=== PATIENT | male | born 1950 | race Caucasian/White ===

== ENCOUNTER → 2018-06-20 08:38 | Outpatient (CLI) | payer MEDICARE, OTHER, SELFPAY ==
[2018-06-20 09:37] LABS: Cholesterol 192 mg/dL (140-199); HDL Cholesterol 46 mg/dL (40-60); LDL Cholesterol Calculated 133 mg/dL (<100); Triglycerides 67 mg/dL (35-150)
== END ==
PROVIDERS: Family Provider Internal Medicine; PCP Internal Medicine; Visit Provider Internal Medicine
DX: E78.00 Pure hypercholesterolemia, unspecified (principal); E66.9 Obesity, unspecified; Z12.5 Encounter for screening for malignant neoplasm of prostate
CPT/HCPCS: 36415; 80061; G0103

== ENCOUNTER → 2019-04-15 08:11 | Outpatient (CLI) | payer MEDICARE, OTHER, SELFPAY ==
[2019-04-15 09:10] LABS: Cholesterol 200 mg/dL (140-199); HDL Cholesterol 44 mg/dL (40-60); LDL Cholesterol Calculated 140 mg/dL (<100); Triglycerides 81 mg/dL (35-150)
== END ==
PROVIDERS: Family Provider Internal Medicine; PCP Internal Medicine; Visit Provider Internal Medicine
DX: E78.00 Pure hypercholesterolemia, unspecified (principal)
CPT/HCPCS: 36415; 80061

== ENCOUNTER 2019-08-20 08:16 | Day surgery (SDC) | payer MEDICARE, OTHER, SELFPAY ==
[2019-08-20] VITALS (7 sets, daily range): BP systolic 104–127; BP diastolic 74–86; PULSE 58–76; RESP 10–16; TEMP 36.1–36.4; O2SAT 94–98; BMI 30.7
--- NOTE | 2019-08-20 | PATH_ITS ---
[facility] Accession Number: [id number] . 01 Material submitted: . sigmoid colon - SIGMOID COLON POLYP . 01 Diagnosis: Sigmoid Colon, Polyp: Colonic mucosa with focal mucosal hyperplasia. Negative for dysplasia or malignancy. Additional step sections examined. MRV 08/22/2019 1038 Local . 01 Electronically signed: . Praveen Cleaning MD, PhD, Pathologist NPI- [id number] . 01 Gross description: . SIGMOID COLON POLYP: Received in formalin is 1 fragment(s) of soria, soft tissue measuring 0.2 x 0.2 x 0.2 cm submitted entirely in 1 cassette(s) /[facility] [place] 08/20/2019 1904 Local . 01 Pathologist provided ICD-10: K63.5 . 01 CPT . 721127 Performed at: [address] [id number] MD Bob Felix MD Phone: [phone]
[2019-08-20] MEDS: SODIUM CHLORIDE 0.9% 1,000 ML 84 ML IV (09:00)
--- NOTE | 2019-08-20 09:39 | PM.HP.1 ---
History of Present Illness History of Present Illness Chief complaint: [id number] COLONOSCOPY W/POSS BX Patient History Family & Social History Social History: household members spouse Tobacco & Substance use: Smoking Status Never smoker alcohol intake current alcohol intake frequency 0-2 drinks per day Substance Use Type does not use Meds Home Medications and Allergies Home Medications Medication Instructions Recorded Confirmed Type atorvastatin 20 mg PO BEDTIME 08/20/19 08/20/19 History Allergies Allergy/AdvReac Type Severity Reaction Status Date / Time No Known Drug Allergies Allergy Verified 08/20/19 08:42 Review of Systems Review of Systems ROS: Yes All systems reviewed with the patient and are negative except as otherwise documented Exam Vital Signs (past 8 hours): - 08/20/19 08:43 Temperature 97.0 F L Pulse Rate 59 L Respiratory Rate 15 Blood Pressure 127/80 Pulse Oximetry 98 Oxygen Delivery Method Room Air Narrative Exam Narrative: Awake alert and oriented x3, no acute distress, lungs clear, heart regular rate and rhythm, no lower extremity edema Assessment & Plan Assessment & Plan narrative: History of colon polyps, needs colon cancer screening, for colonoscopy today
[2019-08-20] MEDS: fentaNYL 250 MCG/5 ML INJ IV (09:44)
[2019-08-20] MEDS: MIDAZOLAM 5 MG/ML VIAL IV (09:45)
--- NOTE | 2019-08-20 09:58 | PM.OP.ENDO ---
Operative Date/Time/Diagnoses Date of procedure: 08/20/19 Procedure & Clinicians Study performed: Colonoscopy with biopsy Moderate conscious sedation was administered by the endoscopy nurse and supervised by the endoscopist. The following parameters were monitored: Oxygen saturation, heart rate, blood pressure, and response to care. Sedation totals: 5 mg midazolam, 100 mcg fentanyl Indications: Personal history of colon polyps. Unknown date of last colonoscopy. Colon cancer screening Procedure Notes Procedure in detail: Prior to the procedure, history and physical was performed, and patient medications and allergies were reviewed. Preprocedure nursing history and assessment was reviewed. Patient identification and proposed procedure were verified by the physician and nurse in the procedure room. The physical status of the patient was reassessed after the procedure. After informed consent was obtained including risks, benefits, and alternatives, the scope was passed under direct vision. Throughout the procedure, the patient's blood pressure, pulse, and oxygen saturations were monitored continuously. The colonoscope was introduced through the anus and advanced to the cecum as identified by the appendiceal orifice and ileocecal valve. The patient tolerated the procedure well. Bowel prep was deemed adequate to detect polyps greater than 5 mm. Perianal and digital rectal examinations were unremarkable. Retroflexion in the rectum revealed grade 1 internal hemorrhoids Scattered small and medium mouth diverticula were noted in the sigmoid colon. A 2 mm sessile polyp was removed with a Jumbo biopsy forceps from the sigmoid colon and retrieved Impression: Internal hemorrhoids Sigmoid colon diverticulosis 2 mm sigmoid colon polyp removed Sedation minutes: 16 Complications: other (EBL minimal. No complications) Post-procedure Plan for aftercare: Follow-up pathology results Repeat colonoscopy in 5 years for screening purposes Resume home medications High-fiber diet Patient has a contact number available for emergencies. The signs and symptoms of potential delayed complications were discussed with the patient. Return to normal activities tomorrow. Written discharge instructions were provided to the patient. Discharge home with escort
--- NOTE | 2019-08-20 10:19 | SUR.PHASEI ---
Patient awake drinking gingerale without difficulty. Denies any pain or nausea.
== END 2019-08-20 11:04 | disposition home or self-care (01) ==
PROVIDERS: Family Provider Internal Medicine; PCP Internal Medicine; Referring Provider Internal Medicine; Visit Provider Internal Medicine
PROC: 0DJD8ZZ Inspection of Lower Intestinal Tract, Via Natural or Artificial Opening Endoscopic (ICD-10-PCS; CPT 45378; principal; 2019-08-20 09:30)
DX: Z12.11 Encounter for screening for malignant neoplasm of colon (principal); Z86.010 Personal history of colon polyps; K57.30 Diverticulosis of large intestine without perforation or abscess without bleeding; K64.0 First degree hemorrhoids; D12.5 Benign neoplasm of sigmoid colon
CPT/HCPCS: 45380; J2250; J3010

== ENCOUNTER → 2020-08-07 12:14 | Outpatient (CLI) | payer MEDICARE, OTHER, SELFPAY ==
--- NOTE | 2020-08-07 12:17 | DI.MRI.S_ITS ---
PROCEDURE: MR KNEE LT WO CON INDICATIONS: Unspecified internal derangement of left knee TECHNIQUE: Noncontrast sagittal PD fast spin echo and T2 fast spin echo with fat saturation, sagittal 3-D FLASH with fat saturation; coronal T1 spin echo and PD fast spin echo with fat saturation, and axial PD fast spin echo with fat saturation through the knee. COMPARISON: [facility], CR, XR KNEE 4+ VIEWS LEFT, 08/03/2020, 13:20. FINDINGS: Image quality: Excellent. Menisci: Subtle signal abnormality involving posterior horn of medial meniscus is seen extending to superior articulating surface concerning for subtle oblique tear. Signal abnormality involving body/posterior horn of lateral meniscus is also seen extending to inferior articulating surface. The meniscal root ligaments appear intact. Cruciate ligaments: The anterior and posterior cruciate ligaments appear intact. Medial structures: There is low-grade MCL sprain/partial-thickness tear. The posterior oblique ligament, semimembranosus tendon insertions, oblique popliteal ligament, and meniscocapsular junction appear intact. Visualized portions of the pes anserinus tendons appear normal. No abnormal bursal fluid. Lateral structures: The lateral collateral ligament, long and short heads of the biceps femoris tendon appear intact. The popliteus tendon appears normal; the popliteofibular ligament appears intact. The posterosuperior and anteroinferior popliteomeniscal fascicles appear intact. The arcuate and fabellofibular ligaments appear intact, on either side of the lateral inferior geniculate artery. Iliotibial band appears normal. Anterior structures: The quadriceps and patellar tendons appear intact. Patellar alignment is normal. No femoral trochlear dysplasia or ventral trochlear prominence. No edema in the infrapatellar fat pad. Bones and cartilage: Mild tricompartmental osteoarthritis and low-grade chondromalacia is seen more prominent in medial femoral tibial compartment and medial aspect of patella femoral compartment. No fracture or dislocation. No marrow edema. Joint space: There is moderate amount of joint fluid, no gross intra-articular loose body.. No Huston's cyst. Normal appearing synovial plicae are incidentally noted. IMPRESSION: 1. Complex oblique tear involving body/posterior horn of lateral meniscus extending to inferior articulating surface. Subtle oblique tear involving posterior horn of medial meniscus extending to superior articulating surface. 2. Cruciate ligaments are intact. Low-grade MCL sprain/partial-thickness tear. 3. Mild tricompartmental osteoarthritis and chondromalacia more prominent in medial femoral tibial compartment and medial aspect of patellofemoral compartment . No fracture or dislocation. Moderate amount of joint effusion. Dictated by: Arnulfo Cavanaugh M.D. on 08/09/2020 at 8:23 Approved by: Arnulfo Cavanaugh M.D. on 08/09/2020 at 8:35
== END ==
PROVIDERS: Family Provider Internal Medicine; PCP Internal Medicine; Referring Provider Orthopaedic Surgery Adult Reconstructive Orthopaedic Surgery; Visit Provider Orthopaedic Surgery Adult Reconstructive Orthopaedic Surgery
DX: S83.272A Complex tear of lateral meniscus, current injury, left knee, initial encounter (principal); S83.242A Other tear of medial meniscus, current injury, left knee, initial encounter; S83.412A Sprain of medial collateral ligament of left knee, initial encounter; M17.12 Unilateral primary osteoarthritis, left knee; M22.42 Chondromalacia patellae, left knee; M25.462 Effusion, left knee
CPT/HCPCS: 73721

== ENCOUNTER → 2021-07-11 11:36 | Outpatient (CLI) | payer MEDICARE, OTHER, SELFPAY ==
[2021-07-11 13:36] LABS: Add Manual Diff / Slide Review NO; Basophils Absolute Auto 0 /uL (0-100); Basophils Percent Auto 0.6 % (0-2); Eosinophils Absolute Auto 100 /uL (0-450); Eosinophils Percent Auto 1.9 % (2-4); Hematocrit 43.8 % (41-53); Hemoglobin 14.9 g/dL (13.5-17.5); Lymphocytes Absolute Auto 1200 /uL (1100-4500); Lymphocytes Percent Auto 22.9 % (25-40); Mean Corpuscular HGB Conc 34.1 % (30-36); Mean Corpuscular Hemoglobin 31.5 PG (26-34); Mean Corpuscular Volume 92.6 fL (80-100); Monocytes Absolute Auto 600 /uL (0-900); Monocytes Percent Auto 10.6 % (3-14); Neutrophils Absolute Auto 3400 /uL (1500-7000); Platelet Count 194 X10^3/uL (150-400); Red Blood Cell Count 4.73 X10^6/uL (4.5-5.9); Red Cell Distribution Width 13.1 % (11.6-14.8); White Blood Cell Count 5.4 X10^3/uL (4.5-11.0)
[2021-07-11 13:47] LABS: Hemoglobin A1C% w Est Avg Glu 5.5 % (4.0-6.0)
[2021-07-11 14:03] LABS: BUN Creatinine Ratio 19.1 (6-22); Blood Urea Nitrogen 18 mg/dL (9-20); Calcium 9.2 mg/dL (8.4-10.2); Carbon Dioxide 30 mmol/L (22-32); Chloride 106 mmol/L (98-107); Estimated Glomerular Filt Rate > 60.0 mL/min (>60); Glucose 79 mg/dL (80-110); HEMOLYSIS < 15 (0-50); Potassium 4.8 mmol/L (3.4-5.1); Sodium 142 mmol/L (137-145)
== END ==
PROVIDERS: Family Provider Internal Medicine; PCP Internal Medicine; Referring Provider Orthopaedic Surgery; Visit Provider Orthopaedic Surgery
DX: Z01.812 Encounter for preprocedural laboratory examination (principal); Z01.818 Encounter for other preprocedural examination; R73.9 Hyperglycemia, unspecified; M25.562 Pain in left knee
CPT/HCPCS: 36415; 80048; 83036; 85025; 93005; 93010

== ENCOUNTER → 2021-08-31 09:08 | Outpatient (CLI) | payer MEDICARE, OTHER, SELFPAY ==
[2021-08-31 12:39] LABS: COVID19 -Nasal RAPID Negative (Negative)
== END ==
PROVIDERS: Family Provider Internal Medicine; PCP Internal Medicine; Visit Provider Family Medicine Sleep Medicine
DX: Z20.822 Contact with and (suspected) exposure to COVID-19 (principal)
CPT/HCPCS: 87635; C9803

== ENCOUNTER 2021-09-04 11:22 | Observation (INO) | payer MEDICARE, OTHER, SELFPAY ==
[2021-07-25 12:38] VITALS: BMI 31.8
[2021-09-02] VITALS (16 sets, daily range): BP systolic 101–148; BP diastolic 64–83; PULSE 54–81; RESP 10–17; TEMP 35.8–36.8; O2SAT 93–98; BMI 31.8
--- NOTE | 2021-09-02 06:00 | DI.RAD.S_ITS ---
PROCEDURE: XR KNEE LT 1TO2V INDICATIONS: Post op total knee TECHNIQUE: 2 view(s) of the knee acquired. COMPARISON: [facility] BenjaminYves Delgado, CR, XR KNEE 4+ VIEWS LEFT, 05/31/2021, 16:32. FINDINGS: Bones: Patient is status post knee joint arthroplasty. Hardware components are in expected positions. Visualized bony structures are intact. Soft tissues: Overlying postoperative changes are noted. IMPRESSION: Expected immediate postoperative appearance of left TKA. Dictated by: Gregory Jamil [facility] Interpreted: Arnulfo Cavanaugh MD on 09/02/2021 at 12:10 Transcribed by: JERROD on 09/02/2021 at 12:10 Approved by: Arnulfo Cavanaugh M.D. on 09/02/2021 at 17:14
[2021-09-02] MEDS: ACETAMINOPHEN 325 MG TABLET 975 MG PO (06:40)
[2021-09-02] MEDS: PREGABALIN 75 MG CAPSULE PO (06:41)
[2021-09-02] MEDS: CELECOXIB 200 MG CAPSULE PO (06:41)
[2021-09-02] MEDS: LACTATED RINGERS 1,000 ML 42 ML IV ×2 (06:42→09:00)
--- NOTE | 2021-09-02 07:14 | SUR.OPER ---
Supine on padded OR bed. Pillow under head, arms secured on padded armboards <90 degree abduction. Safety belt across torso. Non-operative leg secured with tape over blanket over lower leg. Operative leg secured in [employer]/Nathe positioner. Foam padded brace at thigh of operative leg.
--- NOTE | 2021-09-02 07:29 | P.HP_ITS ---
History of Present Illness History of Present Illness Date Patient Seen: 09/02/21 Time Patient Seen: 07:29 Chief complaint: LT TKA *OPB* Narrative: The patient is a 71-year-old gentleman who has had left knee pain that is not responsive to non operative measures. This is an updated history and physical. There have been no changes to his history from the previously file document from July. Patient History Medical History Dry skin Easy bruisability HLD (hyperlipidemia) Melanoma (2020) Osteoarthritis Sleep apnea Surgical History History of arthroscopy of right shoulder History of vasectomy Hx of colonoscopy (08/20/19) Status post unicompartmental knee replacement, right Family & Social History Social History: household members spouse Prior Living Arrangements House Safety & Behavioral: Feels Safe in Current Yes Environment Been Physically Hurt or No Threatened By a Person Suicidal Ideation Description None Suicide Plan Description No Plan Tobacco & Substance use: Smoking Status Former smoker alcohol intake current alcohol intake frequency 0-2 drinks per day Substance Use Type does not use Meds Home Medications and Allergies Home Medications Medication Instructions Recorded Confirmed Type atorvastatin 20 mg tablet 10 mg PO BEDTIME 08/20/19 09/02/21 History tamsulosin 0.4 mg capsule 0.4 mg PO DAILY 07/25/21 09/02/21 History Allergies Allergy/AdvReac Type Severity Reaction Status Date / Time tree nut Allergy Severe Anaphylaxis Verified 09/02/21 06:30 Review of Systems Review of Systems Narrative: The patient has been in his usual state of health. Exam Vital Signs (past 8 hours): - 09/02/21 06:46 Temperature 97.8 F Pulse Rate 81 Respiratory Rate 16 Blood Pressure 135/81 Pulse Oximetry 96 Oxygen Delivery Method Room Air Narrative Exam Narrative: The patient is resting comfortably in his [facility]. Chest is clear to auscultation. Cardiac exam is regular rate rhythm. Abdomen is soft and nontender. Knee examination is unchanged from that documented in his prior history and physical. Assessment & Plan Assessment & Plan narrative: Left knee osteoarthritis that has failed non operative measures. Plan is for left knee total knee replacement. Risks benefits and alternatives have been discussed with the patient. This is documented in our previous note. There are no substantive updates. COVID-19 COVID-19 status: Negative Result date/Date tested (Pos, Neg/Pending): 08/31/21 Time Spent With Patient Critical Care time: I spent a total of [] minutes of critical care time on this patient's care today; this time is exclusive of procedural time.
[2021-09-02] MEDS: TRANEXAMIC ACID 1,000 MG VIAL 1000 MG INJ ×2 (08:00→09:16)
[2021-09-02] MEDS: CEFAZOLIN 2 GM/20 ML SYRINGE IV (08:00)
[2021-09-02] MEDS: BUPIVACAINE LIPOSOME 266 MG/20 ML VIAL INJ (08:24)
[2021-09-02] MEDS: MORPHINE 4 MG/ML INJ INJ (08:24)
[2021-09-02] MEDS: BUPIVACAINE 0.25% (PF) 60 ML, EPINEPHrine 0.3 MG INJ (08:24)
--- NOTE | 2021-09-02 09:44 | P.OP_ITS ---
Operative Date/Time/Diagnoses Date of procedure: 09/02/21 Time of procedure: 09:44 Pre-op diagnosis: Left knee osteoarthritis Post-op diagnosis: same Procedure & Clinicians Procedure: Left total knee replacement Same procedure as scheduled: Yes Indications: The patient has had progressively worsening left knee pain with radiographic changes consistent with arthritis. Non-operative management has failed and the patient has requested total knee replacement. The risks, benefits and alternatives to surgery were discussed with the patient prior to proceeding. Risks discussed included, but were not limited to, failure to relieve pain, stiffness, infection, nerve damage, deep venous thrombosis, pulmonary embolism, stroke, coma, heart attack, permanent paralysis and , as well as the potential need for eventual revision of the prosthetic. Surgeon: Antwon Jain Manager Automotive: Gracia Johnson Yes if Unassisted: No Anesthesia Type: Spinal, Sedation and Local Operative Notes Findings: Significant tricompartmental osteoarthritis with bone exposed in all 3 compartments. Closure Type: primary Specimen(s): none sent Prosthetic devices, grafts, tissues, transplants, or devices: Implants used in this procedure were manufactured by the [employer] and [employer] and included the BCS II Journey total knee replacement with a size 7 left cobalt chromium femur, size 7 non porous tibial base plate, a 9 mm cross- linked polyethylene tibial insert and a 38 mm oval Alesha II patella. Applied: implant(s) Estimated Blood Loss (mL): 25 Blood products transfused: none Tourniquet time (min): 55 Procedure in detail: The patient was seen in the pre-operative area, where the patient identified the left knee as the operative site and this was marked with my initials. The patient received pre-operative antibiotics, and was taken to the operating room and placed on the operative table in the supine position. After satisfactory ane sthesia, a multimedia services manager out was performed. The left leg was encircled with a tourniquet about the proximal thigh, and the leg was prepared from the toes to the tourniquet with ChloroPrep in the usual fashion and draped through sterile drapes. The leg was elevated and exsanguinated with Eschmark bandage and the tourniquet inflated to 250 mmHg pressure. The knee was approached through an approximately 18 cm incision centered over the patella and carried into the knee through a medial parapatellar arthrotomy. The anterior osteophytes and soft tissues were removed. The rotational landmarks of [place]'s line and the transepicondylar axis were marked on the femur with electrocautery, and intramedullary guide holes for the femur and tibia were created. The distal femoral cut was made in 6 degrees of valgus using the intramedullary guide at the primary cut setting. The proximal tibial cut was then made using the intramedullary guide, taking 9 mm of bone off the less involved side. The extension gap was checked and the rotation of the femoral component confirmed with the gap balancing system. The anterior, posterior and chamfer cuts were then made. The posterior osteophytes and soft tissues were then removed. The posterior capsule was injected with part of a mixture of 60 ml 0.25% Marcaine mixed with 20 ml Exparel and 4 mg of morphine for post-operative pain control. The remainder of this mixture was injected into the capsule and subcutaneous tissues during cement curing. The tibia was prepared with the rotation set by an extra medullary guide. Trial tibial and femoral components were then placed and the intercondylar notch cut through the femoral trial. Range of motion was 0-140 degrees, with good stability throughout the range. The patella was then cut to accommodate the pa tellar prosthetic. There was no need for a lateral release. The trials were then removed, and the femoral hole plugged with a bone plug. The bone was prepared with pulsatile lavage, and dried with a sponge. Cement was applied and the final prosthetics placed. Excess cement was removed during and after cement curing. After confirming there was no extruded cement posteriorly, the final tibial insert was placed. The knee was copiously irrigated and the tourniquet deflated. Hemostasis was obtained. The capsule was closed with interrupted # 2 polyester suture. The subcutaneous layer was closed with 3-0 Vicryl, and the skin with a running 3-0 V-Lock suture and Dermabond. An Aquacel Ag dressing was applied and the patient was taken to recovery having tolerated the procedure well. Complications: none Post-operative Condition: stable Disposition: PACU Plan for aftercare: The patient will be maintained on a standard total knee replacement protocol with weight bearing as tolerated. The patient will receive aspirin and sequential compression devices for DVT prophylaxis. The patient will be discharged home when safe for the home environment.
[2021-09-02] MEDS: OXYCODONE 5 MG/5 ML ORAL SOLUTION PO (11:07)
[2021-09-02] MEDS: OXYCODONE IR 5 MG TABLET PO (11:28)
[2021-09-02] MEDS: HYDROMORPHONE 0.5 MG INJ 0.2 MG IV ×2 (12:35→15:51)
[2021-09-02] MEDS: IBUPROFEN 400 MG TABLET PO ×3 (12:36→20:45)
[2021-09-02] MEDS: LACTATED RINGERS 1,000 ML 100 ML IV ×2 (12:37→20:44)
[2021-09-02] MEDS: ACETAMINOPHEN 325 MG TABLET 650 MG PO ×2 (14:15→20:45)
[2021-09-02] MEDS: OXYCODONE IR 10 MG TABLET PO (14:15)
--- NOTE | 2021-09-02 15:30 | PT.IIE ---
Current Diagnoses Unilateral primary osteoarthritis, left knee (09/02/21) Surgery Performed Operation Date: 09/02/21 07:45 Actual Procedures p Total Knee Arthroplasty(Left) - Antwon Jain MD Medical History (Last Reviewed 09/02/21 @ 07:30 by Antwon Jain MD) Dry skin Easy bruisability HLD (hyperlipidemia) Melanoma (2020) Osteoarthritis Sleep apnea Physical Therapy Inpatient Evaluation/Re-Eval M1 PT/OT-IP Prior Functional Status Start: 09/02/21 17:21 Freq: NEEDED Status: Active Protocol: Document 09/02/21 15:30 AB (Rec: 09/02/21 17:33 AB [email or web address]) Medical Review Prior Functional Status Medical History Reviewed Yes Communication able to make needs known Mobility and Gait pt stated that he is independent with all mobilities and ambulation without AD Social History Household Members spouse Living Arrangements House Number of Floors (Floors) Two Floors Number of Stairs To Enter/Railing? pt will stay on main level of the house no steps to enter Home Environment High Toilet,Walk in Shower, Built-In Shower Seat Home Equipment Hand Held Shower Employment Status Retired M2 PT-IP Current Condition Start: 09/02/21 17:21 Freq: NEEDED Status: Active Protocol: Document 09/02/21 15:30 AB (Rec: 09/02/21 17:33 AB [email or web address]) Physical Therapy Current Condition Current Condition Evaluation Date 09/02/21 Treatment Diagnosis s/p L TKA; difficulty in walking Onset Date 09/02/21 M3 PT-IP Subjective Start: 09/02/21 17:21 Freq: NEEDED Status: Active Protocol: Document 09/02/21 15:30 AB (Rec: 09/02/21 17:33 AB [email or web address]) Subjective Physical Therapy Visit Type Type Initial Evaluation Visit Start Time 15:30 Visit Stop Time 16:30 Total Visit Minutes 60 Number of AIR CONDITIONING SERVICE TECHNICIAN Visits 0 Physical Therapy Visit Comments Patient Comments agreeable to do PT Therapy Pain Assessment Pain When Pain Assessed At Rest Pain Present Pain Present Pain Reported Location Left Knee Intensity 5 Scale Used increases to 8/10 with mobility Pain Management Techniques Apply Cold,Distraction, Elevation,Re-positioning, Timing of Activity with Medications M4 PT-IP Mobility and Gait Start: 09/02/21 17:21 Freq: NEEDED Status: Active Protocol: Document 09/02/21 15:30 AB (Rec: 09/02/21 17:33 AB [id number]) PT-Bed Mobility Assessment Supine to Sit Supine to Sit Standby Assistance Sit to Supine Sit to Supine Standby Assistance PT-Transfer Assessment Sit to and From Stand Sit to and from Stand Moderate Assistance,Maximum Assistance,1 Person Assistance ,Use of Upper Extremities Equipment Transfer Assistive Device Gait Belt,Front Wheeled Walker Orthotic/Prosthetic Devices or Brace: No Comments Mobility Comments BP in supine: 118/78. pt requesting to use the toilet. completed supine to sit SBA. able to sit on EOB SBA. C/O nausea. BP checked: 144/96. nurse informed regarding nausea and given medication. pt completed sit to stand mod to max A and max cues. mod A to maintain static standing balance using FWW. stated that he will not be able to walk due to increase pain and still feel nauseated but wants to use urinal in standing position. nurse in room to assist as needed. instructed pt to side step towards HOB after use of urinal and completed ~ 3 steps using FWW mod to max A and cues. slight L knee buckling requiring assist for steadiness. pt completed sit to supine SBA. positioned pt in bed. call light and table placed within reach. BP chekced: 136/78. ice pack provided. Gait Assessment Comments Gait Comments pt able to take side steps to HOB using FWW mod to max A and max cues for quads activation . PT-Balance Assessment Sitting Balance and Reactions Static Sitting Balance Ability Good Dynamic Sitting Balance Ability Good Standing Balance and Reactions Static Standing Balance Ability Poor Dynamic Standing Balance Ability Poor Device Used FWW M5 PT-IP Objective Assessments Start: 09/02/21 17:21 Freq: NEEDED Status: Active Protocol: Document 09/02/21 15:30 AB (Rec: 09/02/21 17:33 AB [email or web address]) Orientation Orientation/Cognition Level of Alertness Alert Orientation Name,Place,Situation Language Function Ability No Deficits Noted Safety Awareness Decreased Safety Awareness Memory Description No Deficits Noted Gross Range of Motion Lower Extremity ROM Impairments L knee flexion: ~ 70 deg L knee extension: 20 deg less to 0 deg Strength Lower Extremity Strength Assessment Left Impaired Hip 3+/5 Knee 3+/5 Sensation Assessment Sensation Gross Sensation Left LE Impaired Light Touch Impaired Sensation Description Numbness Comments Sensation Comments decrease L foot sensation per pt Muscle Tone Muscle Tone WNL Yes M6 PT-IP Treatment Start: 09/02/21 17:21 Freq: NEEDED Status: Active Protocol: Document 09/02/21 15:30 AB (Rec: 09/02/21 17:33 AB [email or web address]) Physical Therapy Treatment Education Education Provided Precautions,Weight Bearing Status,Post-Op Packet,Safety M7 PT-IP Assessment and Plan Start: 09/02/21 17:21 Freq: NEEDED Status: Active Protocol: Document 09/02/21 15:30 AB (Rec: 09/02/21 17:33 [email or web address]) PT Summary Assessment and Plan Potential Rehabilitation Potential Fair Status of Condition at Evaluation Evolving Summary Impairments Pain,ROM,Strength,Balance, Coordination,Sensation,Tone, Cognition,Bed Mobility, Transfers,Gait,Activity Tolerance Assessment Summary Pt s/p L TKA and just had surgery this morning. pt currently requiring mod to max A with mobility and unable to tolerate much with c/o increase L knee pain and nausea. will continue to assess progress for safe D/C plan. pt plans to go home with spouse to asssit him and when appropriate, will conduct caregiver training. Goals Bed Mobility Goal Independent Transfer Goal Standby Assistance,Front Wheeled Walker Gait Goal Standby Assistance,Front Wheel Walker Gait Distance 150 Days to Meet Goals 5 Frequency of Treatment Frequency Of Treatment Twice a Day Treatment Plan Physical Therapy Treatment Plan Bed Mobility Training,Transfer Training,Gait Training, Therapeutic Exercise,Balance Retraining,Post Op Education, Discharge Planning,Hot or Cold Pack,Neuromuscular Re-ed, Coordination Retraining,Manual Therapy Weight Bearing Status Weight Bearing Status Weight Bear as Tolerated Allowed Weight Bearing Amount (enter % LLE WBAT or #) (%) Recommendations To Nursing Amount of Assist Needed 2 Person Assist Discharge Recommendations PT Discharge Recommendations Home with Assistance, Outpatient PT Transportation Needs at Discharge Private Vehicle
[2021-09-02] MEDS: ONDANSETRON 4 MG ODT PO (16:13)
[2021-09-02] MEDS: HYDROMORPHONE 2 MG TABLET PO ×2 (19:00→21:56)
[2021-09-02] MEDS: ATORVASTATIN 20 MG TABLET 10 MG PO (20:44)
[2021-09-02] MEDS: DOCUSATE 100 MG CAPSULE PO (20:44)
[2021-09-02] MEDS: ASPIRIN EC 81 MG TABLET PO (20:45)
--- NOTE | 2021-09-02 22:09 | PC.NURSE ---
Addendum entered by Genesis Wheatley R.N. 09/02/21 22:39: Patient states he is not able to get any good sleep because he has to keep urinating. Requests IVF be stopped. Intake has been good post-op so IVF stopped. Original Note: Patient is alert and oriented. Breath sounds CTA with RA sat of 94%. HRR but bradycardic with rate in 50's which patient reports is normal for him. Denies nausea. BT hypoactive but states he is passing flatus. Is voiding per urinal and denies dysuria, frequency or urgency. Is able to move himself in bed. Gait not assessed at this time but previous RN reports he needs walker and 2 assists. Aquacel dressing wrapped with demetrice is CDI. Complains of 7/10 left knee pain and was medicated with scheduled Tylenol + Ibuprofen and now with po Dilaudid; is keeping ice pack to knee. Wearing bilateral calf SCD's. Denies any tingling/numbness and is able to do straight leg raises on left. Fall risk score is high and bed alarm is activated.
[2021-09-03] MEDS: IBUPROFEN 400 MG TABLET PO ×6 (01:38→20:29)
[2021-09-03] MEDS: HYDROMORPHONE 2 MG TABLET PO ×4 (01:38→19:44)
[2021-09-03] MEDS: OXYCODONE IR 10 MG TABLET PO (03:18)
[2021-09-03 05:49] LABS: Hematocrit 37.2 % (41-53); Hemoglobin 12.5 g/dL (13.5-17.5)
[2021-09-03 05:58] VITALS: BP 98/52; PULSE 69; RESP 16; TEMP 36.3; O2SAT 96
[2021-09-03] MEDS: hydrOXYzine pamoate 25 MG CAPSULE PO ×4 (08:46→20:29)
[2021-09-03] MEDS: ASPIRIN EC 81 MG TABLET PO ×2 (08:46→20:28)
[2021-09-03] MEDS: ACETAMINOPHEN 325 MG TABLET 650 MG PO (08:47)
[2021-09-03] MEDS: DOCUSATE 100 MG CAPSULE PO ×2 (08:47→20:28)
[2021-09-03] MEDS: TAMSULOSIN 0.4 MG CAPSULE PO (08:47)
[2021-09-03 08:52] VITALS: BP 119/61; PULSE 54; RESP 18; TEMP 36.3; O2SAT 96
[2021-09-03] MEDS: SODIUM CHLORIDE 0.9% FLUSH 10 ML IV ×2 (09:57→20:30)
--- NOTE | 2021-09-03 09:59 | PM.PNPO.1 ---
Subjective Subjective Date Patient Seen: 09/03/21 Time Patient Seen: 09:00 Interval history: Pt sitting up in bed, appears to be comfortable but had significant pain control issues overnight requiring doses of both PO and IV dilaudid on top of ibuprofen, tylenol, and oxycodone. Eating and voiding without difficulty. Evaluated by PT yesterday. Exam Vital Signs (past 8 hours): - 09/03/21 05:58 09/03/21 08:52 Temperature 97.4 F L 97.3 F L Pulse Rate 69 54 L Respiratory Rate 16 18 Blood Pressure 98/52 L 119/61 Pulse Oximetry 96 96 Oxygen Delivery Method Room Air Oxygen Flow Rate 0 Narrative Exam Narrative: 5/5 strength in quadriceps, hamstrings, DF, PF, EHL bilaterally. Sensation to light touch intact throughout BLE. Calves soft, compressible, nontender and without palpable cords or masses. CHARO wrap intact over Aquacel dressing. Const General: cooperative Orientation: alert and oriented x3 Objective Labs Result Diagrams: 09/03/21 05:27 Labs: Laboratory Results - last 24 hr 09/03/21 05:27 Hgb 12.5 L Hct 37.2 L PFSH Medical History (Updated 09/03/21 @ 10:03 by Gracia Butcher PA-C) Dry skin Easy bruisability HLD (hyperlipidemia) Melanoma (2020) Obesity (BMI 30.0-34.9) Osteoarthritis Sleep apnea Surgical History (Updated 09/03/21 @ 10:03 by Gracia Butcher PA-C) History of arthroscopy of right shoulder History of vasectomy Hx of colonoscopy (08/20/19) Status post unicompartmental knee replacement, right Social History household members: spouse Smoking Status: Former smoker alcohol intake: current Assessment & Plan Post-op Assessment and plan (1) Status post total knee replacement, left: Assessment and Plan narrative: Continue PT Will increase frequency of Vistaril and dosage of Tylenol (2) Acute blood loss as cause of postoperative anemia: Assessment and Plan narrative: Asymptomatic, no intervention needed at this time. Postoperative Procedures: Procedures Operation Date: 09/02/21 07:45 Actual Procedure Side Surgeon p Total Knee Arthroplasty Left Antwon Jain MD Postoperative day: 1 Postoperative status narrative: Recovery as expected. Postoperative plan narrative: Discharge when pain controlled when pain controlled without dilaudid. Quality VTE Deep Vein Thrombosis/Pulmonary Embolism Present on Admission: No
--- NOTE | 2021-09-03 10:05 | PM.DS.1 ---
History of Present Illness History of Present Illness Date Patient Seen: 09/04/21 Time Patient Seen: 08:35 Chief complaint: LT TKA *OPB* Narrative: Operative Date/Time/Diagnoses Date of procedure: 09/02/21 Time of procedure: 09:44 Pre-op diagnosis: Left knee osteoarthritis Post-op diagnosis: same Procedure & Clinicians Procedure: Left total knee replacement Same procedure as scheduled: Yes Indications: The patient has had progressively worsening left knee pain with radiographic changes consistent with arthritis. Non-operative management has failed and the patient has requested total knee replacement. The risks, benefits and alternatives to surgery were discussed with the patient prior to proceeding. Risks discussed included, but were not limited to, failure to relieve pain, stiffness, infection, nerve damage, deep venous thrombosis, pulmonary embolism, stroke, coma, heart attack, permanent paralysis and , as well as the potential need for eventual revision of the prosthetic. Surgeon: Antwon Jain Electromechanical Assembler: Gracia Butcher Click Yes if Unassisted: No Anesthesia Type: Spinal, Sedation and Local Operative Notes Findings: Significant tricompartmental osteoarthritis with bone exposed in all 3 compartments. Closure Type: primary Specimen(s): none sent Prosthetic devices, grafts, tissues, transplants, or devices: Implants used in this procedure were manufactured by the [employer] and included the BCS II Journey total knee replacement with a size 7 left cobalt chromium femur, size 7 non porous tibial base plate, a 9 mm cross-linked polyethylene tibial insert and a 38 mm oval Alesha II patella. Applied: implant(s) Estimated Blood Loss (mL): 25 Blood products transfused: none Tourniquet time (min): 55 Discharge Providers Provider Date of admission: 09/02/2021 Discharge Date: 09/04/21 Primary care physician: Hector Aguirre MD Consults: 09/02/21 11:22 Consult to Discharge Planning Routine Comment: Consult to Physical Therapy Evaluate & Treat Comment: Physician Instructions: postop TKA protocol Consult to Respiratory Therapy Evaluate & Treat Comment: Physician Instructions: Evaluate and treat Discharge provider: Gracia Butcher PA-C Summary Hospital Course Discharge Diagnosis: s/p L TKA Hospital Course: Mr Ugalde's hospital course was remarkable for difficulty with pain control. On POD# 2, his pain was well-controlled with oxycodone, vistaril, Tylenol, ibuprofen, and minimal amounts of hydromorphone. He was evaluated by PT and felt to be safe for discharge. He was eating and voiding without difficulty and wanted to go home. Exam Vital Signs (past 8 hours): - 09/03/21 05:58 09/03/21 08:52 Temperature 97.4 F L 97.3 F L Pulse Rate 69 54 L Respiratory Rate 16 18 Blood Pressure 98/52 L 119/61 Pulse Oximetry 96 96 Oxygen Delivery Method Room Air Oxygen Flow Rate 0 Narrative Exam Narrative: 5/5 strength in quadriceps, hamstrings, DF, PF, and EHL bilaterally. Sensation to light touch intact throughout BLE. Calves soft, compressible, and nontender and without palpable cords or masses. Const General: cooperative and comfortable Orientation: alert, awake and oriented x3 Objective Labs Result Diagrams: 09/03/21 05:27 Labs: Laboratory Results - last 24 hr 09/03/21 05:27 Hgb 12.5 L Hct 37.2 L PFSH Medical History (Updated 09/03/21 @ 10:03 by Gracia Butcher PA-C) Dry skin Easy bruisability HLD (hyperlipidemia) Melanoma (2020) Obesity (BMI 30.0-34.9) Osteoarthritis Sleep apnea Surgical History (Updated 09/03/21 @ 10:03 by Gracia Butcher PA-C) History of arthroscopy of right shoulder History of vasectomy Hx of colonoscopy (08/20/19) Status post unicompartmental knee replacement, right Social History household members: spouse Smoking Status: Former smoker alcohol intake: current Discharge Assessment & Plan Assessment and Plan Assessment: POD#2 s/p left total knee arthroplasty. Plan of Treatment: Discharge home. Multimodal pain management. ASA 81 mg BID for VTE prophylaxis. Outpt PT. Discharge Plan Discharge Plan Patient Disposition: Home Discharge orders & Medications Discharge Orders: Discharge (Order); Ordered 09/04/21 Ordered By: Gracia Butcher Prescriptions: New oxycodone 5 mg Tablet 5 mg PO Q4-6H PRN (Reason: pain, severe) Qty: 60 0RF hydromorphone 2 mg Tablet 2 mg PO Q6H PRN (Reason: Pain, Severe (7-10)) Qty: 10 0RF aspirin 81 mg Tablet,Delayed Release (Dr/Ec) 81 mg PO BID Qty: 90 0RF ibuprofen 400 mg Tablet 400 mg PO Q4HR Qty: 180 1RF docusate sodium 100 mg Capsule 100 mg PO BID PRN (Reason: constipation) Qty: 60 2RF acetaminophen 325 mg Tablet 975 mg PO TID Qty: 180 2RF hydroxyzine pamoate 25 mg Capsule 25 mg PO Q4HR PRN (Reason: muscle spasm) Qty: 180 1RF Continued atorvastatin 20 mg Tablet 10 mg PO BEDTIME 0RF tamsulosin 0.4 mg Capsule 0.4 mg PO DAILY 0RF Follow up/Referrals: Hector Aguirre MD [Primary Care Provider] - Antwon Jain MD [Physician] - As previously scheduled (Follow up with Gracia Butcher PA-C on 09/13/2021 @ 9:30 at [facility] office in [place].) Diet/Activity/Treatments Diet: Diet as Tolerated Activity: WBAT LLE. Walk frequently! Cold/Heat Therapy: Ice to knee as needed for pain. Skin/Wound/Dressing Care Report to your healthcare provider any signs of infection, such as:: chills, fever, night sweats, increased pain, unusual drainage and unusual redness Dressing: May remove CHARO wrap and shower. Leave Aquacel dressing in place until follow up with Dr Jain. No bathing or otherwise soaking incision. Call office if dressing becomes saturated inside. Visit Report/Discharge Packet Instructions: DI for Knee Replacement Stand Alone Forms: Surgery Discharge Discharge Data Primary Care Provider: Hector Aguirre V Attending Provider: Antwon Jain Quality VTE Deep Vein Thrombosis/Pulmonary Embolism Present on Admission: No
[2021-09-03] MEDS: OXYCODONE IR 5 MG TABLET PO ×2 (10:07→18:22)
--- NOTE | 2021-09-03 10:37 | PT.IPTN ---
Current Diagnoses Acute posthemorrhagic anemia (09/02/21) Unilateral primary osteoarthritis, left knee (09/02/21) Presence of left artificial knee joint (09/02/21) Surgery Performed Operation Date: 09/02/21 07:45 Actual Procedures p Total Knee Arthroplasty(Left) - Antwon Jain MD Physical Therapy Treatment Note M2 PT-IP Current Condition Start: 09/02/21 17:21 Freq: NEEDED Status: Active Protocol: Document 09/02/21 15:30 AB (Rec: 09/02/21 17:33 AB [id number]) Physical Therapy Current Condition Current Condition Evaluation Date 09/02/21 Treatment Diagnosis s/p L TKA; difficulty in walking Onset Date 09/02/21 M3 PT-IP Subjective Start: 09/02/21 17:21 Freq: NEEDED Status: Active Protocol: Document 09/03/21 10:19 KS (Rec: 09/03/21 12:46 KS [id number]) Subjective Physical Therapy Visit Type Type Treatment Note Visit Start Time 10:19 Visit Stop Time 10:37 Total Visit Minutes 18 Notes Spouse present Number of ACTIMIZE ARCHITECT Visits 1 Physical Therapy Visit Comments Patient Comments agreeable to do PT Therapy Pain Assessment Pain When Pain Assessed At Rest Pain Present Pain Present Pain Reported Location Left Knee Intensity 3 Scale Used increases to 8/10 with mobility Pain Behaviors Calling Out,Facial Grimacing, Guarding,Restlessness,Wincing Pain Management Techniques Apply Cold,Distraction, Elevation,Re-positioning, Timing of Activity with Medications M4 PT-IP Mobility and Gait Start: 09/02/21 17:21 Freq: NEEDED Status: Active Protocol: Document 09/03/21 10:19 KS (Rec: 09/03/21 12:46 KS [id number]) PT-Bed Mobility Assessment Supine to Sit Supine to Sit Standby Assistance Sit to Supine Sit to Supine Moderate Assistance Scooting Scooting to Edge of Bed Standby Assistance PT-Transfer Assessment Sit to and From Stand Sit to and from Stand Minimal Assistance,1 Person Assistance,Use of Upper Extremities Equipment Transfer Assistive Device Gait Belt,Front Wheeled Walker Orthotic/Prosthetic Devices or Brace: No Transfers Transfer Destination Bed Transfer Technique pt ambulated w/ FWW Transfer Ability Level of Assist Minimal Assistance,1 Person Assistance,Use of Upper Extremities Comments Mobility Comments Pt in bed upon arrival w/ spouse in room. Performed 1x10 ankle pumps and 1x5 heel slides and SLR prior to mobilizing. SBA for sup<>sit and scooting EOB. Min A and cues for sequencing and hand placement for sit<>stand w/ FWW. Pt then performed 10 sec weight shifting followed by [address] and then ambulated ~40 ft around room w/ FWW CGA. Pt c/o increased pain to 8/10 w/ mobility. Pt Mod A for sit<> sup for LE assistance back into bed. Pt refused further exercises due to pain and left in bed w/ all needs in reach. Gait Assessment Gait Gait Assistance Required: Contact Guard Assist,1 Person Assist Distance (Feet) 40 Assistive Devices Assistive Device Gait Belt,Front Wheeled Walker Orthotic/Prosthetic Devices or Brace: No Gait Deviations General Gait Pattern Antalgic,Decreased Stride Length,Decreased Feet Clearance,Flexed Trunk,Step-to Gait Factors Limiting Gait Function Factors Limiting Gait Function Decreased Activity Tolerance, Decreased Strength,Pain Comments Gait Comments Pt increased ambulation distance to 40 ft w/ FWW CGA but c/o increased pain to 8/10 . PT-Balance Assessment Sitting Balance and Reactions Static Sitting Balance Ability Good Dynamic Sitting Balance Ability Good Standing Balance and Reactions Static Standing Balance Ability Fair Dynamic Standing Balance Ability Fair Device Used FWW M5 PT-IP Objective Assessments Start: 09/02/21 17:21 Freq: NEEDED Status: Active Protocol: Document 09/02/21 15:30 AB (Rec: 09/02/21 17:33 AB [id number]) Orientation Orientation/Cognition Level of Alertness Alert Orientation Name,Place,Situation Language Function Ability No Deficits Noted Safety Awareness Decreased Safety Awareness Memory Description No Deficits Noted Gross Range of Motion Lower Extremity ROM Impairments L knee flexion: ~ 70 deg L knee extension: 20 deg less to 0 deg Strength Lower Extremity Strength Assessment Left Impaired Hip 3+/5 Knee 3+/5 Sensation Assessment Sensation Gross Sensation Left LE Impaired Light Touch Impaired Sensation Description Numbness Comments Sensation Comments decrease L foot sensation per pt Muscle Tone Muscle Tone WNL Yes M6 PT-IP Treatment Start: 09/02/21 17:21 Freq: NEEDED Status: Active Protocol: Document 09/03/21 10:19 KS (Rec: 09/03/21 12:46 KS [id number]) Physical Therapy Treatment Exercises Exercises Ankle Pumps,Gluteal Sets,Quad Sets,Heel Slides,Straight Leg Raises Education Education Provided Precautions,Weight Bearing Status,Post-Op Packet,Safety Other Treatments Other Treatment Performed Initiated caregiver training - demonstrated how to guard pt when ambulating. M7 PT-IP Assessment and Plan Start: 09/02/21 17:21 Freq: NEEDED Status: Active Protocol: Document 09/03/21 10:19 KS (Rec: 09/03/21 12:46 KS [id number]) PT Summary Assessment and Plan Potential Rehabilitation Potential Fair Status of Condition at Evaluation Evolving Summary Impairments Pain,ROM,Strength,Balance, Coordination,Sensation,Tone, Cognition,Bed Mobility, Transfers,Gait,Activity Tolerance Assessment Summary Pt showed improvement w/ activity tolerance but continues to be limited by high reported pain. SBA for sup<>Sit able to elevate leg out of bed but required Mod A when sit<>sup for LLE assistance due to pain. Ambulated ~40 ft w/ FWW step to pattern and heavy weight bearing through BUE. Will need to complete caregiver training and increase ambulation distance prior to d /c if going home. Goals Bed Mobility Goal Independent Transfer Goal Standby Assistance,Front Wheeled Walker Gait Goal Standby Assistance,Front Wheel Walker Gait Distance 150 Days to Meet Goals 5 Frequency of Treatment Frequency Of Treatment Twice a Day Treatment Plan Physical Therapy Treatment Plan Bed Mobility Training,Transfer Training,Gait Training, Therapeutic Exercise,Balance Retraining,Post Op Education, Discharge Planning,Hot or Cold Pack,Neuromuscular Re-ed, Coordination Retraining,Manual Therapy Weight Bearing Status Weight Bearing Status Weight Bear as Tolerated Allowed Weight Bearing Amount (enter % LLE WBAT or #) (%) Recommendations To Nursing Amount of Assist Needed 1 Person Assist Discharge Recommendations PT Discharge Recommendations Home with Assistance, Outpatient PT Transportation Needs at Discharge Private Vehicle
[2021-09-03] MEDS: HYDROMORPHONE 0.5 MG INJ 0.2 MG IV (10:49)
[2021-09-03] MEDS: polyethylene glycoL 3350 17 GM POWD.PACK PO (10:49)
[2021-09-03 13:29] VITALS: BP 99/67; PULSE 56; RESP 16; TEMP 36.3; O2SAT 96
--- NOTE | 2021-09-03 13:46 | CM.DANOTE ---
DCP Assessment: patient is a 71 yr old male who was admitted for Left Total Knee replacement preformed by Dr. Jain. CM met with the patient and his and explained role. Patient was A&O x4 during visit. Patient states his pain is 4/10 but it is manageable. Patient currently lives in a 2 story home with his Alis but does not need to go to the second floor. Patient is Independent at his baseline with all ADLS and drives. Patient already has OP PT set up with [facility] to start next week and a follow up for 5 days post op. Patient has FWW, cane and an elevated toilet seat at home and doesnt feel he will need anything from CM. I: Medicare and [employer] Dim[employer] Plan: DC Home with who will provide transport home when medically stable. no identified DC planning needs at this time. Anali Gan RNlinen controller Discharge Planning/Care Management Advanced directive, confirm from FAMILY Start: 09/02/21 13:04 Freq: Q24H Status: Active Protocol: Document 09/02/21 13:00 BT (Rec: 09/02/21 13:06 BT [id number]) Advance Directive, confirm on record Time 13:05 Person contacted Dakotah Ugalde Copy received No Copy received No Advanced directive available on record No Document 09/02/21 13:04 BT (Rec: 09/02/21 13:49 BT [id number]) Advance Directive, confirm on record Time 13:05 Person contacted Dakotah Ugalde Copy received No Copy received No Advanced directive available on record No Document 09/03/21 13:04 BT (Rec: 09/03/21 13:19 BT [id number]) Advance Directive, confirm on record Time 13:05 Person contacted Dakotah Ugalde Copy received No Copy received No Advanced directive available on record No CM Discharge Assessment Start: 09/03/21 13:36 Freq: Status: Active Protocol: Document 09/03/21 13:36 HS (Rec: 09/03/21 13:46 HS [id number]) Discharge Planning Assessment Assigned Windlasser Anali Gan RNlinen controller DPOA/Assigned Designee Name Alis Ugalde Advance Directives? Yes Advance Directives on File No History Provided By Patient Has Patient been admitted in last 30 No days? Prior Living Arrangements House Household Members spouse Type of transporation used prior to Drives own vehicle admit Independent with ADL's Yes Is patient alert and oriented? Yes Caregiver for Another No DME Already Rented / Owned FWW / Walker,Cane Patient/Family Preference OP PT Therapy Comment OP PT already set up at [facility] here in [place] Barriers to Discharge No Discharge Plan Home Referrals Initiated None needed Whiteboard Updated in Patient Room with Yes name and ext. # of Windlasser Review Status In Process Next Review Type Continued Stay Review Pre-Anesthesia Assessment Start: 07/25/21 12:38 Freq: Status: Complete Protocol: Document 07/25/21 12:38 CAB (Rec: 07/25/21 13:21 CAB [id number]) Pre-Anesthesia Assessment Preferred Name [facility] Patient Information Reviewed Via Phone Assessment Assessment Completed With Patient Diagnostic Results BMP/CMP,CBC,EKG Comment Labs/ECG @ [facility] 07/11/21, COVID screen @ 08/01/21 Primary Care Provider Hector Aguirre Seen Specialist in Last 12 Months Yes Specialist Seen Orthopedist Primary Language Nigerien Preferred Language Nigerien Carding Doubler Required No Height 182.88 cm Weight 106.594 kg Body Mass Index (BMI) 31.8 Hearing Ability Normal Visual Impairment No Limitations Visual Assist None Dentition Type Teeth, Natural Present Barriers to Learning None Hx Anesthesia Reactions No Hx Family Anesthesia Reaction No Hx Malignant Hyperthermia No Hx Blood Transfusions No Anesthesia Review Requested No alcohol intake current alcohol intake frequency 0-2 drinks per day Smoking Status Former smoker how long ago did patient quit smoking Quit age 20 Substance Use Type does not use Pain Present Pain Reported Musculoskeletal Symptoms Abnormal Gait,Difficulty Walking,Joint Pain History of Falling (Recent or History of No ) Patient is completely paralyzed or No completely immobile Mental Status Oriented to own ability Is patient on oxygen? No Does patient have LEYVA/SOB No Hx Sleep Apnea Yes: Mild per pt, did not toleratte CPAP CPAP/BIPAP use not prescribed Currently Taking a Beta Safia No Can You Climb a Flight of Stairs Without Yes SOB Hx Chest Pain No Hx SOB No Hx Syncope or Dizziness No Anti-Coagulant Therapy No Has a Nitric Acid Plant Operator No Cardiac Testing No Hx Pacemaker/ICD No Pacemaker Rep Required? No Cardiac Clearance Received Not Applicable Diet Type At Home Regular dysphagia No Bladder Pattern Incontinent,Retention Urinary Catheter Present No Hx Urinary Self Catheterization No Diabetes No HgbA1C 5.5 Date 07/11/21 Hx Drug Resistant Organism No Presence of External or Internal Medical Yes: right partial knee Devices Have you had any close contact with No someone diagnosed with COVID-19? Received a COVID vaccine? Yes: + Booster Received all doses? Yes Marital Status Lives With spouse Prior Living Arrangements House Number of Floors (Floors) Two Floors Support System Spouse Does the Patient Have Assistance After Yes Surgery Patient Discharge Plan Description Home Health Comment Pt advised overnight length of stay per surgeon Feels Safe in Current Environment Yes Been Physically Hurt or Threatened By a No Person in Current Environment Do you have thoughts of harming yourself None or others? Are you currently considering suicide? No Do you have a plan to hurt yourself or No Plan others? Do You Have Any Spiritual Beliefs That No May Affect Your HC Choices? Do You Have Any Cultural Practices That No May Affect Your HC Choices? Comment Taoist Who Can We Speak to About Patient's Care Family, friends Identifying Code for Release of Patient Declines to issue Information Health Care Proxy/Next of Kin Alis () Health Care Proxy Emergency Contact Name Alis () Emergency Contact Advance Directives? No Power of Broadcast News Producer No PAC Instructions Durable medical equipment, Medications to take/avoid, Nasal antibiotic,No ETOH/ petroleum product on skin DOS, NPO,Post-op transportation,Pre -surgical wash,Sturdy shoes/ comfortable clothes,Do not bring valuables and remove jewelry
--- NOTE | 2021-09-03 14:00 | PT.IPTN ---
Current Diagnoses Acute posthemorrhagic anemia (09/02/21) Unilateral primary osteoarthritis, left knee (09/02/21) Presence of left artificial knee joint (09/02/21) Surgery Performed Operation Date: 09/02/21 07:45 Actual Procedures p Total Knee Arthroplasty(Left) - Antwon Jain MD Physical Therapy Treatment Note M2 PT-IP Current Condition Start: 09/02/21 17:21 Freq: NEEDED Status: Active Protocol: Document 09/02/21 15:30 AB (Rec: 09/02/21 17:33 AB [id number]) Physical Therapy Current Condition Current Condition Evaluation Date 09/02/21 Treatment Diagnosis s/p L TKA; difficulty in walking Onset Date 09/02/21 M3 PT-IP Subjective Start: 09/02/21 17:21 Freq: NEEDED Status: Active Protocol: Document 09/03/21 16:35 KS (Rec: 09/03/21 16:46 KS [id number]) Subjective Physical Therapy Visit Type Type Treatment Note Visit Start Time 13:44 Visit Stop Time 14:00 Total Visit Minutes 16 Notes Spouse present. Pt seemingly impatient and impulsive, needing cues to not youngblood and wait for direction. Rushing spouse during caregiver training, maybe due to increased pain. Number of JEWELRY INSPECTOR Visits 2 Physical Therapy Visit Comments Patient Comments agreeable to do PT Therapy Pain Assessment Pain When Pain Assessed At Rest Pain Present Pain Present Pain Reported M4 PT-IP Mobility and Gait Start: 09/02/21 17:21 Freq: NEEDED Status: Active Protocol: Document 09/03/21 16:35 KS (Rec: 09/03/21 16:46 KS [id number]) PT-Bed Mobility Assessment Supine to Sit Supine to Sit Standby Assistance Sit to Supine Sit to Supine Moderate Assistance Scooting Scooting to Edge of Bed Standby Assistance PT-Transfer Assessment Sit to and From Stand Sit to and from Stand Contact Guard Assistance,1 Person Assistance,Use of Upper Extremities Equipment Transfer Assistive Device Gait Belt,Front Wheeled Walker Orthotic/Prosthetic Devices or Brace: No Transfers Transfer Destination Bed Transfer Technique pt ambulated w/ FWW Transfer Ability Level of Assist Minimal Assistance,1 Person Assistance,Use of Upper Extremities Comments Mobility Comments Pt in bed upon arrival and spouse in room. Pt sup<>sit SBA and pts applied gaitbelt w/ cues. Pt sit<> stand w/ FWW CGA and cues to p /u from bed, pts spouse able to provide correct assist w/ sit<>Stand and securing of FWW . Pt then only able to ambulate ~20 ft around room w/ FWW and providing CGA and he requested to get back in bed. Pts provided Mod A for sit<>sup and pt left in bed w/ alarm on and all needs in reach. Gait Assessment Gait Gait Assistance Required: Contact Guard Assist,1 Person Assist Distance (Feet) 20 Assistive Devices Assistive Device Gait Belt,Front Wheeled Walker Orthotic/Prosthetic Devices or Brace: No Gait Deviations General Gait Pattern Antalgic,Decreased Stride Length,Decreased Feet Clearance,Flexed Trunk,Step-to Gait Factors Limiting Gait Function Factors Limiting Gait Function Decreased Activity Tolerance, Decreased Strength,Pain Comments Gait Comments Pt limited in ambulation by pain. Stair Climbing Assessment Comments Stair Climbing Comments Not assessed. Pt can enter 2nd floor w/o steps but eventually must descend from second floor. PT-Balance Assessment Sitting Balance and Reactions Static Sitting Balance Ability Good Dynamic Sitting Balance Ability Good Standing Balance and Reactions Static Standing Balance Ability Fair Dynamic Standing Balance Ability Fair Device Used FWW M5 PT-IP Objective Assessments Start: 09/02/21 17:21 Freq: NEEDED Status: Active Protocol: Document 09/02/21 15:30 AB (Rec: 09/02/21 17:33 AB [id number]) Orientation Orientation/Cognition Level of Alertness Alert Orientation Name,Place,Situation Language Function Ability No Deficits Noted Safety Awareness Decreased Safety Awareness Memory Description No Deficits Noted Gross Range of Motion Lower Extremity ROM Impairments L knee flexion: ~ 70 deg L knee extension: 20 deg less to 0 deg Strength Lower Extremity Strength Assessment Left Impaired Hip 3+/5 Knee 3+/5 Sensation Assessment Sensation Gross Sensation Left LE Impaired Light Touch Impaired Sensation Description Numbness Comments Sensation Comments decrease L foot sensation per pt Muscle Tone Muscle Tone WNL Yes M6 PT-IP Treatment Start: 09/02/21 17:21 Freq: NEEDED Status: Active Protocol: Document 09/03/21 16:35 KS (Rec: 09/03/21 16:46 KS [id number]) Physical Therapy Treatment Education Education Provided Precautions,Weight Bearing Status,Post-Op Packet,Safety Other Treatments Other Treatment Performed Continued caregiver training w / pts who was able to apply gait belt, assist w/ sit <>stand and secure FWW, ambulation, and sit<>sup LE elevation. Would benefit from carryover assessment. M7 PT-IP Assessment and Plan Start: 09/02/21 17:21 Freq: NEEDED Status: Active Protocol: Document 09/03/21 16:35 KS (Rec: 09/03/21 16:46 KS [id number]) PT Summary Assessment and Plan Potential Rehabilitation Potential Fair Status of Condition at Evaluation Evolving Summary Impairments Pain,ROM,Strength,Balance, Coordination,Sensation,Tone, Cognition,Bed Mobility, Transfers,Gait,Activity Tolerance Assessment Summary Pt continues to be limited by high reported pain. Continued caregiver training w/ pts today who was able to apply gait belt and provide appropriate assist and cues but would benefit from carryover assessment if able. Pt only able to tolerate ~20 ft ambulation and calls out in pain during stand<>sit due to poor eccentric control and impulsivity needing reminders to reach for mattress. Should increase ambulation distance prior to d/c. Goals Bed Mobility Goal Independent Transfer Goal Standby Assistance,Front Wheeled Walker Gait Goal Standby Assistance,Front Wheel Walker Gait Distance 150 Days to Meet Goals 5 Frequency of Treatment Frequency Of Treatment Twice a Day Treatment Plan Physical Therapy Treatment Plan Bed Mobility Training,Transfer Training,Gait Training, Therapeutic Exercise,Balance Retraining,Post Op Education, Discharge Planning,Hot or Cold Pack,Neuromuscular Re-ed, Coordination Retraining,Manual Therapy Weight Bearing Status Weight Bearing Status Weight Bear as Tolerated Allowed Weight Bearing Amount (enter % LLE WBAT or #) (%) Recommendations To Nursing Amount of Assist Needed 1 Person Assist Discharge Recommendations PT Discharge Recommendations Home with Assistance, Outpatient PT Transportation Needs at Discharge Private Vehicle
[2021-09-03] MEDS: ACETAMINOPHEN 325 MG TABLET 975 MG PO ×2 (14:42→20:29)
[2021-09-03 19:58] VITALS: BP 97/59; PULSE 54; RESP 16; TEMP 37.2; O2SAT 93
[2021-09-03] MEDS: ATORVASTATIN 20 MG TABLET 10 MG PO (20:28)
[2021-09-03 23:12] VITALS: BP 103/63; PULSE 76; RESP 16; TEMP 36.5; O2SAT 97
--- NOTE | 2021-09-03 23:26 | PC.NURSE ---
Patient is alert and oriented. Breath sounds CTA with RA sat of 93%. HRR but bradycardic in 50's which is his normal. BP low at 97/59 but is asymptomatic. Denies nausea. BT present and is passing flatus. Voiding per urinal; denies dysuria. Is able to move himself in bed. Gait not assessed at this time but reportedly is now getting out of bed with walker and 1 assist. Aquacel dressing covered with demetrice wrap is CDI. At shift change pain reported as well managed at 07/11 but at 1944 complained that pain had intensified and was throbbing and rated severity as 7/10 so was medicated with po Dilaudid (too early for additional oxycodone) and ice applied. Pain went down to 4/10 at time scheduled Tylenol, Vistaril and Ibuprofen was administered and is currently asleep. Denies tingling/numbness but is unable to lift leg off bed at time of assessment. Refused bilateral calf SCD's but verbalized/demonstrated understanding of ankle waving. Fall risk score is high and bed alarm is activated.
[2021-09-04] MEDS: IBUPROFEN 400 MG TABLET PO ×6 (00:21→21:35)
[2021-09-04] MEDS: OXYCODONE IR 5 MG TABLET PO ×3 (00:21→08:15)
[2021-09-04] MEDS: hydrOXYzine pamoate 25 MG CAPSULE PO ×6 (00:21→21:35)
[2021-09-04 04:37] VITALS: BP 102/58; PULSE 51; RESP 95; TEMP 36.8; O2SAT 95
[2021-09-04 08:00] VITALS: BP 136/79; PULSE 62; RESP 17; TEMP 36.4; O2SAT 96
[2021-09-04] MEDS: ACETAMINOPHEN 325 MG TABLET 975 MG PO ×3 (08:14→21:35)
[2021-09-04] MEDS: DOCUSATE 100 MG CAPSULE PO ×2 (08:15→21:35)
[2021-09-04] MEDS: ASPIRIN EC 81 MG TABLET PO ×2 (08:15→21:36)
[2021-09-04] MEDS: TAMSULOSIN 0.4 MG CAPSULE PO (08:15)
[2021-09-04] MEDS: HYDROMORPHONE 2 MG TABLET PO ×5 (09:11→21:36)
--- NOTE | 2021-09-04 09:46 | PT.IPTN ---
Current Diagnoses Acute posthemorrhagic anemia (09/02/21) Unilateral primary osteoarthritis, left knee (09/02/21) Presence of left artificial knee joint (09/02/21) Surgery Performed Operation Date: 09/02/21 07:45 Actual Procedures p Total Knee Arthroplasty(Left) - Antwon Jain MD Physical Therapy Treatment Note M2 PT-IP Current Condition Start: 09/02/21 17:21 Freq: NEEDED Status: Active Protocol: Document 09/02/21 15:30 AB (Rec: 09/02/21 17:33 AB [email or web address]) Physical Therapy Current Condition Current Condition Evaluation Date 09/02/21 Treatment Diagnosis s/p L TKA; difficulty in walking Onset Date 09/02/21 M3 PT-IP Subjective Start: 09/02/21 17:21 Freq: NEEDED Status: Active Protocol: Document 09/04/21 09:46 AW (Rec: 09/04/21 12:01 AW [id number]) Subjective Physical Therapy Visit Type Type Treatment Note Visit Start Time 09:27 Visit Stop Time 09:46 Total Visit Minutes 19 Notes Pt's spouse was present and participated in caregiver training Number of [employer] Visits 0 Physical Therapy Visit Comments Patient Comments agreeable to do PT Therapy Pain Assessment Pain When Pain Assessed At Rest Pain Present Pain Present Reassessed Location Left Knee Intensity 4 Scale Used increases with all movement Pain Behaviors Facial Grimacing,Guarding, Restlessness,Wincing Pain Management Techniques Apply Cold,Distraction, Elevation,Re-positioning, Timing of Activity with Medications M4 PT-IP Mobility and Gait Start: 09/02/21 17:21 Freq: NEEDED Status: Active Protocol: Document 09/04/21 09:46 AW (Rec: 09/04/21 12:01 AW [id number]) PT-Bed Mobility Assessment Supine to Sit Supine to Sit Standby Assistance Sit to Supine Sit to Supine Minimal Assistance,1 Person Assistance Scooting Scooting to Edge of Bed Standby Assistance PT-Transfer Assessment Sit to and From Stand Sit to and from Stand Contact Guard Assistance,1 Person Assistance,Use of Upper Extremities Equipment Transfer Assistive Device Gait Belt,Front Wheeled Walker Orthotic/Prosthetic Devices or Brace: No Transfers Transfer Destination Bed Transfer Technique pt ambulated w/ FWW Transfer Ability Level of Assist Contact Guard Assistance,1 Person Assistance,Use of Upper Extremities Comments Mobility Comments Pt was in bed as PT arrived. Spouse was present and asking questions about home mobility. SBA for supine to sit as pt c /o increased knee pain. He sat EOB and stood with FWW SBA. He ambulated 60 feet in the hallway with tendency to walk too close to front of FWW. On return to the room, pt expressed preference for return to bed, refusing the chair. He sat with fair control, requiring cues for slow descent. Min A required for supine to sit Gait Assessment Gait Gait Assistance Required: Contact Guard Assist,1 Person Assist Distance (Feet) 60 Able to Maintain Weight Bearing Status Yes During Gait Assistive Devices Assistive Device Gait Belt,Front Wheeled Walker Orthotic/Prosthetic Devices or Brace: No Gait Deviations General Gait Pattern Antalgic,Decreased Stride Length,Decreased Feet Clearance,Flexed Trunk,Step-to Gait Factors Limiting Gait Function Factors Limiting Gait Function Decreased Activity Tolerance, Decreased Strength,Pain,Poor Safety Awareness Comments Gait Comments See mobility comments for details. Pt tends to walk too close to front of FWW. UE weightbearing on walker is significant and limits smooth rolling of FWW. Stair Climbing Assessment Comments Stair Climbing Comments Pt's spouse states she can drive around to back of house so pt need not descend steps to get to outpatient PT. PT-Balance Assessment Sitting Balance and Reactions Static Sitting Balance Ability Good Dynamic Sitting Balance Ability Good Standing Balance and Reactions Static Standing Balance Ability Fair Dynamic Standing Balance Ability Fair Device Used FWW M5 PT-IP Objective Assessments Start: 09/02/21 17:21 Freq: NEEDED Status: Active Protocol: Document 09/02/21 15:30 AB (Rec: 09/02/21 17:33 AB [id number]) Orientation Orientation/Cognition Level of Alertness Alert Orientation Name,Place,Situation Language Function Ability No Deficits Noted Safety Awareness Decreased Safety Awareness Memory Description No Deficits Noted Gross Range of Motion Lower Extremity ROM Impairments L knee flexion: ~ 70 deg L knee extension: 20 deg less to 0 deg Strength Lower Extremity Strength Assessment Left Impaired Hip 3+/5 Knee 3+/5 Sensation Assessment Sensation Gross Sensation Left LE Impaired Light Touch Impaired Sensation Description Numbness Comments Sensation Comments decrease L foot sensation per pt Muscle Tone Muscle Tone WNL Yes M6 PT-IP Treatment Start: 09/02/21 17:21 Freq: NEEDED Status: Active Protocol: Document 09/04/21 09:46 AW (Rec: 09/04/21 12:01 AW [id number]) Physical Therapy Treatment Exercises Exercises Passive Knee Extension Hang Education Education Provided Weight Bearing Status,Safety Other Treatments Other Treatment Performed Answered pt's and spouse's questions about car transfers and mobility in the home. Emphasized importance of ROM in early phases of rehab and encouraged pt to spend time working on extension with passive hang as tolerated. M7 PT-IP Assessment and Plan Start: 09/02/21 17:21 Freq: NEEDED Status: Active Protocol: Document 09/04/21 09:46 AW (Rec: 09/04/21 12:01 AW [id number]) PT Summary Assessment and Plan Summary Impairments Pain,ROM,Strength,Balance, Coordination,Sensation,Tone, Cognition,Bed Mobility, Transfers,Gait,Activity Tolerance Progress Towards Goals Slow Progress due to Pain Assessment Summary Pt increased ambulation distance. PT answered pt and spouse questions about mobility at home. Pt has a safety frame around the toilet . He and his spouse are concerned about their 31 tall bed. Will practice sit to stand from tall bed at next session. Goals Bed Mobility Goal Independent Transfer Goal Standby Assistance,Front Wheeled Walker Gait Goal Standby Assistance,Front Wheel Walker Gait Distance 150 Days to Meet Goals 5 Frequency of Treatment Frequency Of Treatment Twice a Day Treatment Plan Physical Therapy Treatment Plan Bed Mobility Training,Transfer Training,Gait Training, Therapeutic Exercise,Balance Retraining,Post Op Education, Discharge Planning,Hot or Cold Pack,Neuromuscular Re-ed, Coordination Retraining,Manual Therapy Other Recommendations and Next Treatment sit to stand from 31 tall bed Focus Weight Bearing Status Weight Bearing Status Weight Bear as Tolerated Allowed Weight Bearing Amount (enter % LLE WBAT or #) (%) Recommendations To Nursing Amount of Assist Needed 1 Person Assist Discharge Recommendations PT Discharge Recommendations Home with Assistance, Outpatient PT Transportation Needs at Discharge Private Vehicle
[2021-09-04 10:11] VITALS: O2SAT 97
[2021-09-04 12:00] VITALS: BP 129/73; PULSE 65; RESP 18; TEMP 36.6; O2SAT 100
[2021-09-04 15:57] VITALS: BP 119/71; PULSE 68; RESP 16; TEMP 36.8; O2SAT 96
--- NOTE | 2021-09-04 16:34 | PT.IPTN ---
Current Diagnoses Acute posthemorrhagic anemia (09/04/21) Unilateral primary osteoarthritis, left knee (09/04/21) Presence of left artificial knee joint (09/04/21) Surgery Performed Operation Date: 09/02/21 07:45 Actual Procedures p Total Knee Arthroplasty(Left) - Antwon Jain MD Physical Therapy Treatment Note M2 PT-IP Current Condition Start: 09/02/21 17:21 Freq: NEEDED Status: Active Protocol: Document 09/02/21 15:30 AB (Rec: 09/02/21 17:33 AB [email or web address]) Physical Therapy Current Condition Current Condition Evaluation Date 09/02/21 Treatment Diagnosis s/p L TKA; difficulty in walking Onset Date 09/02/21 M3 PT-IP Subjective Start: 09/02/21 17:21 Freq: NEEDED Status: Active Protocol: Document 09/04/21 15:30 AW (Rec: 09/04/21 16:34 AW [id number]) Subjective Physical Therapy Visit Type Type Treatment Note Visit Start Time 15:14 Visit Stop Time 15:30 Total Visit Minutes 16 Notes Coordinated with RN for pain assistant media planner beginning of session Number of FIBER MACHINE TENDER Visits 0 Physical Therapy Visit Comments Patient Comments Pt is willing to participate with PT Therapy Pain Assessment Pain When Pain Assessed At Rest Pain Present Pain Present Pain Reported Location Left Knee Intensity 5 Scale Used 6/10 with activity M4 PT-IP Mobility and Gait Start: 09/02/21 17:21 Freq: NEEDED Status: Active Protocol: Document 09/04/21 15:30 AW (Rec: 09/04/21 16:34 AW [id number]) PT-Bed Mobility Assessment Supine to Sit Supine to Sit Standby Assistance Sit to Supine Sit to Supine Minimal Assistance,1 Person Assistance Scooting Scooting to Edge of Bed Standby Assistance PT-Transfer Assessment Sit to and From Stand Sit to and from Stand Standby Assistance,Use of Upper Extremities Equipment Transfer Assistive Device Gait Belt,Front Wheeled Walker Orthotic/Prosthetic Devices or Brace: No Transfers Transfer Destination Bed Transfer Technique pt ambulated w/ FWW Transfer Ability Level of Assist Standby Assistance,1 Person Assistance,Use of Upper Extremities Comments Mobility Comments Pt was in bed as PT arrived. Spouse was in room. Pt used RLE to lift LLE to edge of bed and completed supine to sit SBA. He stood and agreed to ambulate, using FWW to go 120 feet SBA. On return to the room, pt refused the chair and returned to bed, using RLE to lift LLE but ultimately requiring min A to elevate the leg to the bed. Gait Assessment Gait Gait Assistance Required: Standby Assistance Distance (Feet) 120 Able to Maintain Weight Bearing Status Yes During Gait Assistive Devices Assistive Device Gait Belt,Front Wheeled Walker Orthotic/Prosthetic Devices or Brace: No Gait Deviations General Gait Pattern Antalgic,Decreased Stride Length,Decreased Feet Clearance,Flexed Trunk,Step-to Gait Factors Limiting Gait Function Factors Limiting Gait Function Decreased Activity Tolerance, Decreased Strength,Pain,Poor Safety Awareness Comments Gait Comments Pt able to decrease UE weightbearing on walker this PM. He responded well to cues for heel strike, equal step length. Ely slowed as pt grew more confident. PT-Balance Assessment Sitting Balance and Reactions Static Sitting Balance Ability Good Dynamic Sitting Balance Ability Good Standing Balance and Reactions Static Standing Balance Ability Fair Dynamic Standing Balance Ability Fair Device Used FWW M5 PT-IP Objective Assessments Start: 09/02/21 17:21 Freq: NEEDED Status: Active Protocol: Document 09/02/21 15:30 AB (Rec: 09/02/21 17:33 AB [id number]) Orientation Orientation/Cognition Level of Alertness Alert Orientation Name,Place,Situation Language Function Ability No Deficits Noted Safety Awareness Decreased Safety Awareness Memory Description No Deficits Noted Gross Range of Motion Lower Extremity ROM Impairments L knee flexion: ~ 70 deg L knee extension: 20 deg less to 0 deg Strength Lower Extremity Strength Assessment Left Impaired Hip 3+/5 Knee 3+/5 Sensation Assessment Sensation Gross Sensation Left LE Impaired Light Touch Impaired Sensation Description Numbness Comments Sensation Comments decrease L foot sensation per pt Muscle Tone Muscle Tone WNL Yes M6 PT-IP Treatment Start: 09/02/21 17:21 Freq: NEEDED Status: Active Protocol: Document 09/04/21 15:30 AW (Rec: 09/04/21 16:34 AW [id number]) Physical Therapy Treatment Education Education Provided Weight Bearing Status,Safety M7 PT-IP Assessment and Plan Start: 09/02/21 17:21 Freq: NEEDED Status: Active Protocol: Document 09/04/21 15:30 AW (Rec: 09/04/21 16:34 AW [id number]) PT Summary Assessment and Plan Summary Impairments Pain,ROM,Strength,Balance, Coordination,Sensation,Tone, Cognition,Bed Mobility, Transfers,Gait,Activity Tolerance Progress Towards Goals Slow Progress due to Pain Assessment Summary Pt increased ambulation distance again but continues to complain of 5-6+/10 pain which limits his tolerance. Pt will be safe to discharge home with assist and outpatient PT once medically stable. Goals Bed Mobility Goal Independent Transfer Goal Standby Assistance,Front Wheeled Walker Gait Goal Standby Assistance,Front Wheel Walker Gait Distance 150 Days to Meet Goals 5 Frequency of Treatment Frequency Of Treatment Twice a Day Treatment Plan Physical Therapy Treatment Plan Bed Mobility Training,Transfer Training,Gait Training, Therapeutic Exercise,Balance Retraining,Post Op Education, Discharge Planning,Hot or Cold Pack,Neuromuscular Re-ed, Coordination Retraining,Manual Therapy Other Recommendations and Next Treatment sit to stand from 31 tall bed Focus ; Weight Bearing Status Weight Bearing Status Weight Bear as Tolerated Allowed Weight Bearing Amount (enter % LLE WBAT or #) (%) Recommendations To Nursing Amount of Assist Needed 1 Person Assist Discharge Recommendations PT Discharge Recommendations Home with Assistance, Outpatient PT Transportation Needs at Discharge Private Vehicle
[2021-09-04 20:48] VITALS: BP 132/78; PULSE 80; RESP 17; TEMP 37.7; O2SAT 97
[2021-09-04] MEDS: ATORVASTATIN 20 MG TABLET 10 MG PO (21:37)
[2021-09-05] MEDS: hydrOXYzine pamoate 25 MG CAPSULE PO ×3 (00:31→08:30)
[2021-09-05] MEDS: HYDROMORPHONE 2 MG TABLET PO ×5 (00:31→11:21)
[2021-09-05] MEDS: IBUPROFEN 400 MG TABLET PO ×3 (00:31→08:30)
[2021-09-05 07:43] VITALS: BP 109/72; PULSE 64; RESP 16; TEMP 36.3; O2SAT 97
[2021-09-05] MEDS: ACETAMINOPHEN 325 MG TABLET 975 MG PO (08:29)
[2021-09-05] MEDS: ASPIRIN EC 81 MG TABLET PO (08:30)
[2021-09-05] MEDS: TAMSULOSIN 0.4 MG CAPSULE PO (08:30)
[2021-09-05] MEDS: DOCUSATE 100 MG CAPSULE PO (08:30)
--- NOTE | 2021-09-05 10:36 | PT-IP ANOTE ---
Attempted to see pt for AM tx but he is preparing to discharge and denies further PT needs. PT reviewed ther ex and activity recommendations. Allowed pt to rest in preparation for discharge.
--- NOTE | 2021-09-05 11:44 | PC.NURSE ---
Pt is A&OX3, VSS, afebrile on RA. He reports pain is well controlled this a.m. at 5/10 but requesting prn dilauded when it is due prior to activity and getting out of bed due to anticipating increased pain level. Pt LLE with minimal swelling CMS+ pedal pulses +2. He denies numbness/tingling. He is cleared for discharge and asking to discharge this a.m. when his arrives at approximately 11a.m. He verbalizes understanding of discharge instructions including medications, activity, s/sx of infection, worsening symptoms, site care and follow up plan of care. He is discharged with all of his belongings and with his FWW. He is escorted by the VP [employer] via w/chair to private vehicle with his for discharge home at 1120 this a.m.
== END 2021-09-05 11:20 | disposition home or self-care (01) ==
LOC: OR 15:03 → AC 15:03
PROVIDERS: Admitting Provider Orthopaedic Surgery; Family Provider Internal Medicine; PCP Internal Medicine; Referring Provider Orthopaedic Surgery; Visit Provider Orthopaedic Surgery
PROC: 0SRD0JZ Replacement of Left Knee Joint with Synthetic Substitute, Open Approach (ICD-10-PCS; CPT 27447; principal; 2021-09-02 07:45)
DX: M17.12 Unilateral primary osteoarthritis, left knee (principal); D62 Acute posthemorrhagic anemia; G47.33 Obstructive sleep apnea (adult) (pediatric)
CPT/HCPCS: 27447; 36415; 73560; 85014; 85018; 97116; 97162; 97530; C1776; G0378; C1713; C9290; J0171; J0690; J1170; J2250; J2270; J2704; J3010

== ENCOUNTER 2021-09-20 13:00 | Emergency (ER) | payer MEDICARE, OTHER, SELFPAY ==
[2021-09-02 12:47] VITALS: BMI 31.8
[2021-09-20 13:04] VITALS: BP 134/81; PULSE 90; RESP 15; TEMP 36.2; O2SAT 95; BMI 31.1
--- NOTE | 2021-09-20 13:07 | DI.RAD.S_ITS ---
PROCEDURE: XR CHEST 2V INDICATIONS: shortness of breath TECHNIQUE: 2 views of the chest were acquired. COMPARISON: None. FINDINGS: Surgical changes and devices: None. Lungs and pleura: Lungs are clear. No pleural effusions or pneumothorax. Mediastinum: Mediastinal contours are normal. Heart size is normal. Bones and chest wall: No suspicious bony abnormalities. Soft tissues appear unremarkable. IMPRESSION: No acute cardiopulmonary disease. Dictated by: Luz Carroll M.D. on 09/20/2021 at 13:56 Approved by: Luz Carroll M.D. on 09/20/2021 at 13:57
--- NOTE | 2021-09-20 13:16 | ED_ITS ---
HPI - General Adult General Chief complaint: Shortness of Breath/Dyspnea Stated complaint: SOB Time Seen by Provider: 09/20/21 13:09 Source: patient Mode of arrival: Ambulatory History of Present Illness HPI narrative: Patient is a 71-year-old male. Recently underwent a left total knee arthroplasty. He is currently taking 1x 81 mg aspirin 2 times a day. States that he feels like his postoperative course has been progressing well. He is here with his . He states that he is been short of breath with exertion over the past couple days. Specifically with walking around the house and also going up stairs. When he is lying in bed he is not having any shortness of breath. No cough. No fevers. No chest pain. No abdominal pain. No urinary symptoms. Has not tried anything for symptoms prior to arrival. Related Data Home Medications Medication Instructions Recorded Confirmed atorvastatin 20 mg tablet 10 mg PO BEDTIME 08/20/19 09/02/21 tamsulosin 0.4 mg capsule 0.4 mg PO DAILY 07/25/21 09/02/21 Previous Rx's Medication Instructions Recorded acetaminophen 325 mg tablet 975 mg PO TID #180 tab 09/03/21 aspirin 81 mg tablet,delayed 81 mg PO BID #90 tab 09/03/21 release docusate sodium 100 mg capsule 100 mg PO BID PRN #60 cap 09/03/21 hydroxyzine pamoate 25 mg capsule 25 mg PO Q4HR PRN #180 cap 09/03/21 ibuprofen 400 mg tablet 400 mg PO Q4HR #180 tab 09/03/21 oxycodone 5 mg tablet 5 mg PO Q4-6H PRN #60 tab 09/03/21 hydromorphone 2 mg tablet 2 mg PO Q6H PRN #10 tab 09/04/21 apixaban 5 mg tablet (Eliquis) 5 mg PO BID #74 tab 09/20/21 Allergies Allergy/AdvReac Type Severity Reaction Status Date / Time tree nut Allergy Severe Anaphylaxis Verified 09/20/21 13:04 Review of Systems Review of Systems ROS Unobtainable: All systems reviewed & are unremarkable except as noted in HPI and below Patient History Medical History Dry skin Easy bruisability HLD (hyperlipidemia) Melanoma (2020) Obesity (BMI 30.0-34.9) Osteoarthritis Sleep apnea Surgical History History of arthroscopy of right shoulder History of vasectomy Hx of colonoscopy (08/20/19) Status post unicompartmental knee replacement, right Social History household members: spouse Smoking Status: Former smoker alcohol intake: current Smoking Status: Former smoker alcohol intake frequency: holidays/special occasions only Substance Use Type: does not use Exam Initial Vital Signs Initial Vital Signs: Vital Signs Temperature 97.2 F L 09/20/21 13:04 Pulse Rate 90 09/20/21 13:04 Respiratory Rate 15 09/20/21 13:04 Blood Pressure 134/81 09/20/21 13:04 Pulse Oximetry 95 09/20/21 13:04 Const General: cooperative, healthy appearing, comfortable and well developed HENMT Head: normal to inspection and normocephalic Chest Chest: normal inspection of the chest Resp Effort & Inspection: normal respiratory effort Auscultation: clear to auscultation bilaterally Cardio Rate: regular rate Rhythm: regular rhythm GI Inspection: normal to inspection Skin General: no rashes or lesions noted Lesions: no lesions Neuro General: patient alert, patient awake and moves all extremities Extrem General: normal to inspection, capillary refill normal and No edema Psych Appearance: grossly normal and well kempt Scores GCS Callender coma scale eye opening: Spontaneous Terell coma scale verbal response: Orientated Callender coma scale motor response: Obey commands Terell coma scale total score: 15 Course Orders Ordered: ED Orders 09/20/21 13:07 XR chest 2V Stat Measure peak expiratory flow ONCE RT Consult Eval and Treat Now 09/20/21 13:12 EKG-12 Lead Stat 09/20/21 13:20 Complete Blood Count AUTO DIFF Stat Comprehensive Metabolic Panel Stat D Dimer Stat Lactate (Lactic Acid) Stat NT-proBNP (BNP-Adult 18+) Stat Prothrombin Time INR Stat Troponin I Stat 09/20/21 14:18 CT angio chest PE protocol Stat Discontinued Medications Apixaban (Apixaban 5 Mg Tablet) 10 mg PO NOW ONE Stop: 09/20/21 15:31 Vital Signs Vital signs: Vital Signs - 8 hr 09/20/21 13:04 09/20/21 16:09 Temperature 97.2 F L Pulse Rate 90 108 H Respiratory Rate 15 Blood Pressure 134/81 Pulse Oximetry 95 98 Medical Decision Making Lab Data Lab results reviewed: Yes I reviewed the patient's lab results. Result diagrams: 09/20/21 13:20 09/20/21 13:20 Labs: Lab Results 09/20/21 09/20/21 09/20/21 Range/Units 13:20 13:20 13:20 WBC 7.6 (4.5-11.0) X10^3/uL RBC 4.18 L (4.5-5.9) X10^6/uL Hgb 13.1 L (13.5-17.5) g/dL Hct 37.8 L (41-53) % MCV 90.3 (80-100) fL MCH 31.4 (26-34) PG MCHC 34.7 (30-36) % RDW 12.9 (11.6-14.8) % Plt Count 300 (150-400) X10^3/uL Neut % (Auto) 74.4 (50-75) % Lymph % (Auto) 14.5 L (25-40) % Victoria % (Auto) 8.3 (3-14) % Eos % (Auto) 2.0 (2-4) % Baso % (Auto) 0.8 (0-2) % Neut # (Auto) 5700 (7122-2347) /uL Lymph # (Auto) 1100 (2928-6817) /uL Victoria # (Auto) 600 (0-900) /uL Eos # (Auto) 200 (0-450) /uL Baso # (Auto) 100 (0-100) /uL PT 12.6 (10.1-12.7) SECONDS INR 1.1 (0.9-1.3) D-Dimer (<230) ng/mL Sodium 138 (137-145) mmol/L Potassium 4.1 (3.4-5.1) mmol/L Chloride 106 (98-107) mmol/L Carbon Dioxide 26 (22-32) mmol/L BUN 22 H (9-20) mg/dL Creatinine 0.74 (0.66-1.25) mg/dL Estimated GFR > 60.0 (>60) mL/min BUN/Creatinine Ratio 29.7 H (6-22) Glucose 94 (80-110) mg/dL Lactate (0.7-2.1) mmol/L Calcium 9.0 (8.4-10.2) mg/dL Total Bilirubin 0.7 (0.2-1.3) mg/dL AST 31 (17-59) IU/L ALT 23 (<50) IU/L Alkaline Phosphatase 109 (38-126) U/L Troponin I (0.01-0.034) ng/mL NT-Pro-B Natriuret Pep 160 H (<125) pg/mL Total Protein 7.8 (6.3-8.2) g/dL Albumin 4.1 (3.5-5.0) g/dL Globulin 3.7 (1.7-4.1) g/dL Albumin/Globulin Ratio 1.1 (1.0-2.8) 09/20/21 09/20/21 09/20/21 Range/Units 13:20 13:20 13:20 WBC (4.5-11.0) X10^3/uL RBC (4.5-5.9) X10^6/uL Hgb (13.5-17.5) g/dL Hct (41-53) % MCV (80-100) fL MCH (26-34) PG MCHC (30-36) % RDW (11.6-14.8) % Plt Count (150-400) X10^3/uL Neut % (Auto) (50-75) % Lymph % (Auto) (25-40) % Victoria % (Auto) (3-14) % Eos % (Auto) (2-4) % Baso % (Auto) (0-2) % Neut # (Auto) (8849-4567) /uL Lymph # (Auto) (8787-2021) /uL Victoria # (Auto) (0-900) /uL Eos # (Auto) (0-450) /uL Baso # (Auto) (0-100) /uL PT (10.1-12.7) SECONDS INR (0.9-1.3) D-Dimer > 5250 H (<230) ng/mL Sodium (137-145) mmol/L Potassium (3.4-5.1) mmol/L Chloride (98-107) mmol/L Carbon Dioxide (22-32) mmol/L BUN (9-20) mg/dL Creatinine (0.66-1.25) mg/dL Estimated GFR (>60) mL/min BUN/Creatinine Ratio (6-22) Glucose (80-110) mg/dL Lactate 1.5 (0.7-2.1) mmol/L Calcium (8.4-10.2) mg/dL Total Bilirubin (0.2-1.3) mg/dL AST (17-59) IU/L ALT (<50) IU/L Alkaline Phosphatase (38-126) U/L Troponin I < 0.012 (0.01-0.034) ng/mL NT-Pro-B Natriuret Pep (<125) pg/mL Total Protein (6.3-8.2) g/dL Albumin (3.5-5.0) g/dL Globulin (1.7-4.1) g/dL Albumin/Globulin Ratio (1.0-2.8) Imaging Data Chest x-ray: Radiologist's Impression: [address] [address] XRay Report Signed Patient: Dakotah Ugalde MR#: [id number] : 1950 Acct:[id number] Age/Sex: 71 / M Date of Service: 09/20/21 Loc: ED Accession Number: [id number] ?? Procedure: XR chest 2V Ordering Provider: Willi Longoria D.O. PROCEDURE:? XR CHEST 2V ? INDICATIONS:? shortness of breath ? TECHNIQUE:? 2 views of the chest were acquired.? ? COMPARISON:? None. ? FINDINGS:? ? Surgical changes and devices:? None.? ? Lungs and pleura:? Lungs are clear.? No pleural effusions or pneumothorax.? ? Mediastinum:? Mediastinal contours are normal.? Heart size is normal.? ? Bones and chest wall:? No suspicious bony abnormalities.? Soft tissues appear unremarkable.? ? IMPRESSION:? No acute cardiopulmonary disease.? ? ? Dictated by: Luz Carroll M.D. on 09/20/2021 at 13:56 ? ? Approved by: Luz Carroll M.D. on 09/20/2021 at 13:57 CT scan - chest: Radiologist's Impression: [address] [address] [address] Scan Report Signed Patient: Dakotah Ugalde MR#: [id number] : 1950 Acct:[id number] Age/Sex: 71 / M Date of Service: 09/20/21 Loc: ED Accession Number: [id number] ?? Procedure: CT angio chest PE protocol Ordering Provider: Willi Longoria D.O. PROCEDURE:? CT ANGIO CHEST PE PROTOCOL ? INDICATIONS:? Chest pain, shortness of breath, tachycardia ? TECHNIQUE:? After the administration of intravenous contrast, 2 mm thick sections acquired from the pulmonary apices to the posterior costophrenic angles.? 3-dimensional maximum intensity projection (MIP) coronal and sagittal reformats were then acquired through the thorax.? For radiation dose reduction, the following was used:? automated exposure control, adjustment of mA and/or kV according to patient size.? ? COMPARISON:? None. ? FINDINGS:? Image quality:? Excellent.? ? Pulmonary arteries:? There are bilateral pulmonary emboli involving bilateral upper and lower lobes.? Embolus starts at the distal into the right main pulmonary artery and is seen extending into anterior and posterior apical segments, right middle lobar branch, and at the origin of the right lower lobe branch.? On the left, clot is seen in the left anterior upper lobe, and left basal segmental and subsegmental branches. ? Lungs and pleura:? Lungs demonstrate mild gravitational ground-glass opacities bilaterally but are otherwise are clear.? No pleural effusions or pneumothorax.? Central and peripheral airways are patent.? ? Mediastinum:? The heart is normal size.? There is no definite septal bowing or right heart enlargement.? Minimal coronary artery calcification.? No pericardial effusion.? No hilar or mediastinal adenopathy.? The aorta and great vessels are normal.? The esophagus is normal without hiatal hernia. ? Bones and chest wall:? No suspicious bony lesions.? Ribs and thoracic spine appear intact throughout.? Thyroid gland is unremarkable.? No axillary or supraclavicular adenopathy.? ? Abdomen:? Small left lobe hepatic cyst.? Visualized upper abdominal solid organs appear otherwise normal in the early arterial phase of enhancement.? ? IMPRESSION:? ? 1. Bilateral upper and lower lobe pulmonary emboli with moderate to large clot burden.? No saddle embolus.? No evidence of right heart strain. ? 2. Discussed with Dr. Lang crew in the emergency room at 15:16 hours.? ? ? Dictated by: Luz Carroll M.D. on 09/20/2021 at 15:11 ? ? Approved by: Luz Carroll M.D. on 09/20/2021 at 15:19?? ECG Data Attestation: I personally reviewed and interpreted this ECG as follows: Prior ECG tracings: available for review Interpretation: Sinus rhythm Ventricular rate 82 Normal axis Normal QRS Normal QTC Nonspecific ST T wave changes MDM Narrative Medical decision making narrative: Troponin negative. BNP negative. No signs of heart strain on the CT scan however there are bilateral pulmonary emboli. Is not tachycardic on his EKG. Not hypoxic. Not tachypneic. Ambulate around the emergency department without becoming tachypneic nor hypoxic nor tachycardic greater than 110. Has a low risk PESI score. Patient tolerated dose of Eliquis here in the ER. Was sent home with Eliquis. We were able to get him an appointment scheduled with his primary doctor on 09/28/21. He was given this information. He will stop his aspirin. Had a discussion with him and his regarding his diagnosis today. I do not feel that the patient requires admission to the hospital nor emergent Cardiology consultation. He was given strict return precautions. He expressed understanding and agreement. Discharge Plan Departure Patient Disposition: Home Clinical Impression: Pulmonary emboli Instructions: DI for Pulmonary Embolism Activity Restrictions/Additional Instructions: Take all of your medication as directed except you should stop your aspirin. We are going to start on a medicine called Eliquis. You were given a dose of it here in the emergency department so your next dose will be tomorrow morning. You do need to follow-up with your primary doctor at the appointment for which you were scheduled. Please return to the emergency department for any new symptoms to include chest pain or worsening shortness of breath. Prescriptions: New Eliquis 5 mg tablet 5 mg PO BID Qty: 74 0RF Rx Instructions: T2 PO BID for 7 days then 1T PO daily after No Action atorvastatin 20 mg Tablet 10 mg PO BEDTIME 0RF tamsulosin 0.4 mg Capsule 0.4 mg PO DAILY 0RF acetaminophen 325 mg Tablet 975 mg PO TID Qty: 180 2RF aspirin 81 mg Tablet,Delayed Release (Dr/Ec) 81 mg PO BID Qty: 90 0RF docusate sodium 100 mg Capsule 100 mg PO BID PRN (Reason: constipation) Qty: 60 2RF hydroxyzine pamoate 25 mg Capsule 25 mg PO Q4HR PRN (Reason: muscle spasm) Qty: 180 1RF ibuprofen 400 mg Tablet 400 mg PO Q4HR Qty: 180 1RF oxycodone 5 mg Tablet 5 mg PO Q4-6H PRN (Reason: pain, severe) Qty: 60 0RF hydromorphone 2 mg Tablet 2 mg PO Q6H PRN (Reason: Pain, Severe (7-10)) Qty: 10 0RF Referrals: Hector Aguirre MD [Primary Care Provider] -
[2021-09-20 13:37] LABS: Add Manual Diff / Slide Review NO; Basophils Absolute Auto 100 /uL (0-100); Basophils Percent Auto 0.8 % (0-2); Eosinophils Absolute Auto 200 /uL (0-450); Hematocrit 37.8 % (41-53); Hemoglobin 13.1 g/dL (13.5-17.5); Lymphocytes Absolute Auto 1100 /uL (1100-4500); Lymphocytes Percent Auto 14.5 % (25-40); Mean Corpuscular HGB Conc 34.7 % (30-36); Mean Corpuscular Hemoglobin 31.4 PG (26-34); Mean Corpuscular Volume 90.3 fL (80-100); Monocytes Absolute Auto 600 /uL (0-900); Monocytes Percent Auto 8.3 % (3-14); Neutrophils Absolute Auto 5700 /uL (1500-7000); Neutrophils Percent Auto 74.4 % (50-75); Platelet Count 300 X10^3/uL (150-400); Red Blood Cell Count 4.18 X10^6/uL (4.5-5.9); Red Cell Distribution Width 12.9 % (11.6-14.8); White Blood Cell Count 7.6 X10^3/uL (4.5-11.0)
[2021-09-20 13:44] LABS: INR 1.1 (0.9-1.3); Prothrombin Time 12.6 SECONDS (10.1-12.7)
[2021-09-20 13:50] LABS: Alanine Aminotransferase 23 IU/L (<50); Albumin 4.1 g/dL (3.5-5.0); Albumin Globulin Ratio 1.1 (1.0-2.8); Alkaline Phosphatase 109 U/L (38-126); Aspartate Aminotransferase 31 IU/L (17-59); BUN Creatinine Ratio 29.7 (6-22); Bilirubin Total 0.7 mg/dL (0.2-1.3); Blood Urea Nitrogen 22 mg/dL (9-20); Carbon Dioxide 26 mmol/L (22-32); Chloride 106 mmol/L (98-107); Estimated Glomerular Filt Rate > 60.0 mL/min (>60); Globulin 3.7 g/dL (1.7-4.1); Glucose 94 mg/dL (80-110); HEMOLYSIS 29 (0-50); Potassium 4.1 mmol/L (3.4-5.1); Sodium 138 mmol/L (137-145); Total Protein 7.8 g/dL (6.3-8.2)
[2021-09-20 13:51] LABS: Lactate (Lactic Acid) 1.5 mmol/L (0.7-2.1)
[2021-09-20 13:59] LABS: NT-proBNP (BNP-Adult 18+) 160 pg/mL (<125)
[2021-09-20 14:12] LABS: D Dimer > 5250 ng/mL (<230)
--- NOTE | 2021-09-20 14:18 | DI.CT.S_ITS ---
PROCEDURE: CT ANGIO CHEST PE PROTOCOL INDICATIONS: Chest pain, shortness of breath, tachycardia TECHNIQUE: After the administration of intravenous contrast, 2 mm thick sections acquired from the pulmonary apices to the posterior costophrenic angles. 3-dimensional maximum intensity projection (MIP) coronal and sagittal reformats were then acquired through the thorax. For radiation dose reduction, the following was used: automated exposure control, adjustment of mA and/or kV according to patient size. COMPARISON: None. FINDINGS: Image quality: Excellent. Pulmonary arteries: There are bilateral pulmonary emboli involving bilateral upper and lower lobes. Embolus starts at the distal into the right main pulmonary artery and is seen extending into anterior and posterior apical segments, right middle lobar branch, and at the origin of the right lower lobe branch. On the left, clot is seen in the left anterior upper lobe, and left basal segmental and subsegmental branches. Lungs and pleura: Lungs demonstrate mild gravitational ground-glass opacities bilaterally but are otherwise are clear. No pleural effusions or pneumothorax. Central and peripheral airways are patent. Mediastinum: The heart is normal size. There is no definite septal bowing or right heart enlargement. Minimal coronary artery calcification. No pericardial effusion. No hilar or mediastinal adenopathy. The aorta and great vessels are normal. The esophagus is normal without hiatal hernia. Bones and chest wall: No suspicious bony lesions. Ribs and thoracic spine appear intact throughout. Thyroid gland is unremarkable. No axillary or supraclavicular adenopathy. Abdomen: Small left lobe hepatic cyst. Visualized upper abdominal solid organs appear otherwise normal in the early arterial phase of enhancement. IMPRESSION: 1. Bilateral upper and lower lobe pulmonary emboli with moderate to large clot burden. No saddle embolus. No evidence of right heart strain. 2. Discussed with Dr. Weathers crew in the emergency room at 15:16 hours. Dictated by: Luz Carroll M.D. on 09/20/2021 at 15:11 Approved by: Luz Carroll M.D. on 09/20/2021 at 15:19
[2021-09-20 15:19] LABS: Troponin I < 0.012 ng/mL (0.01-0.034)
[2021-09-20 16:09] VITALS: PULSE 108; O2SAT 98
[2021-09-20] MEDS: APIXABAN 5 MG TABLET 10 MG PO (16:37)
[2021-09-20 16:40] VITALS: BP 137/83; PULSE 81; RESP 18; O2SAT 94
== END 2021-09-20 16:42 | disposition home or self-care (01) ==
PROVIDERS: Emergency Provider Emergency Medicine; Family Provider Internal Medicine; PCP Internal Medicine
DX: I26.99 Other pulmonary embolism without acute cor pulmonale (principal); Z87.891 Personal history of nicotine dependence; Z79.82 Long term (current) use of aspirin
CPT/HCPCS: 36415; 71046; 71275; 80053; 83605; 83880; 84484; 85025; 85379; 85610; 93005; 99284

== ENCOUNTER 2021-09-25 02:29 | Emergency (ER) | payer MEDICARE, OTHER, SELFPAY ==
[2021-09-02 12:47] VITALS: BMI 31.8
--- NOTE | 2021-09-25 02:31 | ED_ITS ---
HPI - Epistaxis General Chief complaint: Nasal Problem Stated complaint: NOSE BLEED ON BLOOD THINNERS Time Seen by Provider: 09/25/21 02:31 History of Present Illness HPI Narrative: 71-year-old male former smoker with recently diagnosed pulmonary embolism on Eliquis presents with his in the chief complaint of a spontaneous left- sided nosebleed that started tonight. He states he has actually been having issues off and on for about the past 3 weeks but tonight is the most it has bled. He denies systemic findings such as dizziness, weakness or lightheadedness. He states he does feel it dripping down the back of his throat. He denies any injury or trauma and states that he has not been picking at his nose at all. He was seen and evaluated about 1 week ago and had symptoms consistent with pulmonary embolism which were confirmed with a CT scan at which point he was started on Eliquis. Related Data Home Medications Medication Instructions Recorded Confirmed atorvastatin 20 mg tablet 10 mg PO BEDTIME 08/20/19 09/02/21 tamsulosin 0.4 mg capsule 0.4 mg PO DAILY 07/25/21 09/02/21 Previous Rx's Medication Instructions Recorded acetaminophen 325 mg tablet 975 mg PO TID #180 tab 09/03/21 aspirin 81 mg tablet,delayed 81 mg PO BID #90 tab 09/03/21 release docusate sodium 100 mg capsule 100 mg PO BID PRN #60 cap 09/03/21 hydroxyzine pamoate 25 mg capsule 25 mg PO Q4HR PRN #180 cap 09/03/21 ibuprofen 400 mg tablet 400 mg PO Q4HR #180 tab 09/03/21 oxycodone 5 mg tablet 5 mg PO Q4-6H PRN #60 tab 09/03/21 hydromorphone 2 mg tablet 2 mg PO Q6H PRN #10 tab 09/04/21 apixaban 5 mg tablet (Eliquis) 5 mg PO BID #74 tab 09/20/21 Allergies Allergy/AdvReac Type Severity Reaction Status Date / Time tree nut Allergy Severe Anaphylaxis Verified 09/20/21 13:04 Review of Systems Review of Systems Narrative: GENERAL: Denies chills, fatigue, malaise, fever, sweats. HEENT: See HPI RESPIRATORY: Denies dyspnea, cough, wheezing, hemoptysis, sputum. CARDIOVASCULAR: Denies chest pain, palpitations, orthopnea, edema, GASTROINTESTINAL: Denies nausea, vomiting, abdominal pain, diarrhea, constipation, melena. : Denies dysuria, frequency, incontinence, hematuria, urinary retention. MUSCULOSKELETAL: denies weakness, joint pain, or bony pain SKIN: Denies rash, skin lesions, or other NEUROLOGIC: Denies weakness, headache, numbness, change in speech, confusion, seizures, incoordination. PSYCHIATRIC: No concerning psychosocial issues. 12 point review of systems is negative except for those stated above Patient History Medical History Dry skin Easy bruisability HLD (hyperlipidemia) Melanoma (2020) Obesity (BMI 30.0-34.9) Osteoarthritis Sleep apnea Surgical History History of arthroscopy of right shoulder History of vasectomy Hx of colonoscopy (08/20/19) Status post unicompartmental knee replacement, right Social History household members: spouse Smoking Status: Former smoker alcohol intake: current Smoking Status: Former smoker alcohol intake frequency: holidays/special occasions only Substance Use Type: does not use Exam Narrative Exam Narrative: GENERAL: 71 [] year old patient appears stated age. Well-developed patient, in mild distress. Holding gauze on his nose, soaked with bright red blood HEAD: Atraumatic. Normocephalic. EYES: Pupils equal round and reactive. Extraocular motions intact. No scleral icterus. No injection or drainage. ENT: Left Gann with large amount of bleeding, appears pulsatile from nasal septum, fresh clots noted with flow in the posterior pharynx. Throat without erythema, tonsillar hypertrophy or exudate. Airway patent. NECK: Trachea midline. Non tender CARDIOVASCULAR: Regular rate and rhythm without murmurs, gallops, or rubs. RESPIRATORY: Clear to auscultation. Breath sounds equal bilaterally. No wheezes, rales, or rhonchi. GASTROINTESTINAL: Abdomen soft, non-tender, nondistended. EXTREMITIES: No edema or joint tenderness. BACK: Nontender without deformity or crepitance. No flank tenderness. NEURO: AOx3. SKIN: No rash or erythema of visible areas Initial Vital Signs Initial Vital Signs: Vital Signs Temperature 97.9 F 09/25/21 02:37 Pulse Rate 82 09/25/21 02:37 Respiratory Rate 16 09/25/21 02:37 Blood Pressure 148/88 H 09/25/21 02:37 Pulse Oximetry 99 09/25/21 02:37 Procedures Epistaxis Control Time Out Performed: Yes Nostril: left Direct Inspection: anterior source identified Clots Removed by: suction Device Inserted: hemostatic balloon Device Size: 5 Patient Tolerated Procedure: well Course Orders Ordered: ED Orders 09/25/21 02:32 HH [Hemoglobin and Hematocrit] Stat Discontinued Medications Oxymetazoline HCl (Oxymetazoline Nasal Burt 15 Ml) 2 sprays NASAL NOW ONE Stop: 09/25/21 02:33 Last Admin: 09/25/21 03:34 Dose: Not Given Documented by: Tranexamic Acid (Tranexamic Acid 1,000 Mg Vial) 1,000 mg MM NOW ONE Stop: 09/25/21 02:33 Last Admin: 09/25/21 02:40 Dose: 1,000 mg Documented by: Vital Signs Vital signs: Vital Signs - 8 hr 09/25/21 02:37 Temperature 97.9 F Pulse Rate 82 Respiratory Rate 16 Blood Pressure 148/88 H Pulse Oximetry 99 MDM - Epistaxis Lab Data Result diagrams: 09/25/21 02:50 Labs: Lab Results 09/25/21 Range/Units 02:50 Hgb 13.1 L (13.5-17.5) g/dL Hct 38.5 L (41-53) % MDM Narrative Medical decision making narrative: Patient recently started on Eliquis for pulmonary emboli, spontaneous bleeding started tonight. He has no systemic findings and blood counts are stable. Blood pressure in the 140s with a pulse in the 80s. Anterior source noted, however it appears pulsatile, large amount of active bleeding is likely too much bleeding for silver nitrate. A rhino rocket was placed which had been soaked in TXA. He is observed for 30 minutes after procedure. No bleeding around device or in any further bleeding in his posterior pharynx. Return precautions discussed and questions answered to his apparent satisfaction Discharge Plan Departure Patient Disposition: Home Clinical Impression: Epistaxis Instructions: DI for Nosebleed Activity Restrictions/Additional Instructions: *You have been diagnosed with [left-sided anterior epistaxis, on anticoag ulation. As we discussed, thankfully your exam, vital signs and blood counts are reassuring. Your bleeding has been controlled with the use of a rhino rocket *What to do: *Please continue to take your regular medications as directed. [ ] New medication prescriptions sent to your pharmacy: [ ] [ ] New medication written as a paper prescription [ x] No new medications given *Please follow up with Dr. Ridley at [facility], call Sunday morning for an appointment. Let them know you were seen in the Emergency Department and that we ask that you be seen in follow up. We will electronically transmit a record of today's note * please leave the device in place until seen in follow-up. Is not abnormal to have a small amount of bleeding occasionally around the edge but if bleeding picks up significantly or if that advice falls out and bleeding resumes please return to the emergency department for evaluation Prescriptions: No Action atorvastatin 20 mg Tablet 10 mg PO BEDTIME 0RF tamsulosin 0.4 mg Capsule 0.4 mg PO DAILY 0RF acetaminophen 325 mg Tablet 975 mg PO TID Qty: 180 2RF aspirin 81 mg Tablet,Delayed Release (Dr/Ec) 81 mg PO BID Qty: 90 0RF docusate sodium 100 mg Capsule 100 mg PO BID PRN (Reason: constipation) Qty: 60 2RF hydroxyzine pamoate 25 mg Capsule 25 mg PO Q4HR PRN (Reason: muscle spasm) Qty: 180 1RF ibuprofen 400 mg Tablet 400 mg PO Q4HR Qty: 180 1RF oxycodone 5 mg Tablet 5 mg PO Q4-6H PRN (Reason: pain, severe) Qty: 60 0RF hydromorphone 2 mg Tablet 2 mg PO Q6H PRN (Reason: Pain, Severe (7-10)) Qty: 10 0RF Eliquis 5 mg tablet 5 mg PO BID Qty: 74 0RF Rx Instructions: T2 PO BID for 7 days then 1T PO daily after Referrals: Chris Ridley MD [Physician] - Hector Aguirre MD [Primary Care Provider] -
[2021-09-25 02:37] VITALS: BP 148/88; PULSE 82; RESP 16; TEMP 36.6; O2SAT 99; BMI 31.1
[2021-09-25] MEDS: TRANEXAMIC ACID 1,000 MG VIAL 1000 MG MM (02:40)
[2021-09-25 03:00] LABS: Hematocrit 38.5 % (41-53); Hemoglobin 13.1 g/dL (13.5-17.5)
[2021-09-25 03:39] VITALS: BP 125/82; PULSE 82; RESP 16; O2SAT 98
== END 2021-09-25 03:30 | disposition home or self-care (01) ==
PROVIDERS: Emergency Provider Emergency Medicine; Family Provider Internal Medicine; PCP Internal Medicine
DX: R04.0 Epistaxis (principal); Z79.01 Long term (current) use of anticoagulants
CPT/HCPCS: 30901; 36415; 85014; 85018; 99283; A9270

== ENCOUNTER 2021-10-23 02:04 | Emergency (ER) | payer MEDICARE, OTHER, SELFPAY ==
[2021-09-02 12:47] VITALS: BMI 31.8
--- NOTE | 2021-10-23 02:07 | ED_ITS ---
HPI - General Adult General Chief complaint: Nasal Problem Stated complaint: nosebleed Time Seen by Provider: 10/23/21 02:07 Source: patient Mode of arrival: Ambulatory Limitations: no limitations History of Present Illness HPI narrative: 71-year-old male who is on apixaban secondary to pulmonary embolism who is here for evaluation of a nosebleed. Patient has had a nose bleed recently. Anterior packing was needed at the time. Since then he has followed up with ear nose and throat and has had cautery. Overnight had bleeding from his left nares once again. He did try Afrin and pressure at home prior to arrival without any resolution of symptoms. Related Data Home Medications Medication Instructions Recorded Confirmed tamsulosin 0.4 mg capsule 0.4 mg PO DAILY 07/25/21 10/13/21 rosuvastatin 10 mg tablet 10 mg PO DAILY tab 10/13/21 10/13/21 Previous Rx's Medication Instructions Recorded acetaminophen 325 mg tablet 975 mg PO TID #180 tab 09/03/21 apixaban 5 mg tablet (Eliquis) 5 mg PO Q12H #180 tab 10/18/21 Allergies Allergy/AdvReac Type Severity Reaction Status Date / Time tree nut Allergy Severe Anaphylaxis Verified 10/13/21 08:42 Review of Systems Constitutional Constitutional: Reports system reviewed and no additional complaints, except as documented ENT Ears, Nose, Mouth, and Throat: Reports system reviewed and no additional complaints, except as documented Respiratory Respiratory: Reports system reviewed and no additional complaints, except as documented Hematologic/Lymphatic On Anticoagulants: No Patient History Medical History Bilateral pulmonary embolism BPH w urinary obs/LUTS Dry skin Easy bruisability HLD (hyperlipidemia) Melanoma (2020) Mixed hyperlipidemia Obesity (BMI 30.0-34.9) Osteoarthritis Sleep apnea Surgical History History of arthroscopy of right shoulder History of vasectomy Hx of colonoscopy (08/20/19) Status post unicompartmental knee replacement, right Social History household members: spouse Smoking Status: Former smoker alcohol intake: current Smoking Status: Former smoker alcohol intake frequency: holidays/special occasions only Substance Use Type: does not use Exam Initial Vital Signs Initial Vital Signs: Vital Signs Temperature 97.5 F L 10/23/21 02:09 Pulse Rate 75 10/23/21 02:09 Respiratory Rate 17 10/23/21 02:09 Blood Pressure 142/77 H 10/23/21 02:09 Pulse Oximetry 99 10/23/21 02:09 HENMT Nose: epistaxis (Left nares. Anterior on the septum without hematoma) Resp Effort & Inspection: normal respiratory effort Cardio Rate: regular rate Skin General: no rashes or lesions noted Extrem General: capillary refill normal Procedures Epistaxis Control Nostril: left Nose Prepped With: oxymetazoline Direct Inspection: yes and anterior source identified Clots Removed by: manually Cautery Used: none Device Inserted: nasal tampon Device Size: 5 Patient Tolerated Procedure: well and no complications Course Orders Ordered: Discontinued Medications Oxymetazoline HCl (Oxymetazoline Nasal [place] 15 Ml) 2 sprays NASAL NOW ONE Stop: 10/23/21 02:08 Last Admin: 10/23/21 02:15 Dose: 2 sprays Documented by: NEVIN Tranexamic Acid (Tranexamic Acid 1,000 Mg Vial) 1,000 mg TOP NOW ONE Stop: 10/23/21 02:41 Last Admin: 10/23/21 02:45 Dose: 1,000 mg Documented by: SARA Vital Signs Vital signs: Vital Signs - 8 hr 10/23/21 02:09 10/23/21 03:26 Temperature 97.5 F L Pulse Rate 75 84 Respiratory Rate 17 18 Blood Pressure 142/77 H 145/75 H Pulse Oximetry 99 94 Medical Decision Making [facility] Narrative Medical decision making narrative: Patient is bleeding from left nostril. There is a anterior source found and it appears very similar to the description from his last visit here in the ER. Does appear to be pulsatile not feel that sore nitrate is going to be unhelpful as well. We did try Afrin and direct pressure for a period of time without any improvement so nasal packing was placed soaked in TXA. Patient tolerated procedure well. Patient was observed for period of time afterwards without any rebleeding. He has already established care with ENT and will contact them again next week for follow-up. He is given return precautions. He expressed understanding and agreement. Discharge Plan Departure Patient Disposition: Home Clinical Impression: Epistaxis Instructions: DI for Nosebleed Activity Restrictions/Additional Instructions: On Sunday morning contact the office of Dr. Deras and let him know that he had another episode of a nose bleed. It will most likely see you in the office the beginning of next week. Return to the emergency department for any new or worsening symptoms. Continue to take all of your medications as directed. Prescriptions: No Action Eliquis 5 mg tablet 5 mg PO Q12H Qty: 180 1RF rosuvastatin 10 mg tablet 10 mg PO DAILY 0RF tamsulosin 0.4 mg Capsule 0.4 mg PO DAILY 0RF acetaminophen 325 mg Tablet 975 mg PO TID Qty: 180 2RF Referrals: Hector Aguirre MD [Primary Care Provider] -
[2021-10-23 02:09] VITALS: BP 142/77; PULSE 75; RESP 17; TEMP 36.4; O2SAT 99; BMI 31.1
[2021-10-23] MEDS: OXYMETAZOLINE NASAL SPRAY 15 ML 2 SPRAYS NASAL (02:15)
[2021-10-23] MEDS: TRANEXAMIC ACID 1,000 MG VIAL 1000 MG TOP (02:45)
[2021-10-23 03:26] VITALS: BP 145/75; PULSE 84; RESP 18; O2SAT 94
== END 2021-10-23 03:33 | disposition home or self-care (01) ==
PROVIDERS: Emergency Provider Emergency Medicine; Family Provider Internal Medicine; PCP Internal Medicine
DX: R04.0 Epistaxis (principal); Z79.01 Long term (current) use of anticoagulants
CPT/HCPCS: 30901; 99282; A9270

== ENCOUNTER → 2022-02-21 08:32 | Outpatient (CLI) | payer MEDICARE, OTHER, SELFPAY ==
[2021-09-02 12:47] VITALS: BMI 31.8
[2022-02-21 11:47] LABS: BUN Creatinine Ratio 22.5 (6-22); Blood Urea Nitrogen 20 mg/dL (9-20); Estimated Glomerular Filt Rate > 60 mL/min (>60)
== END ==
PROVIDERS: Family Provider Internal Medicine; PCP Internal Medicine; Referring Provider Internal Medicine; Visit Provider Internal Medicine
DX: I26.99 Other pulmonary embolism without acute cor pulmonale (principal)
CPT/HCPCS: 36415; 82565; 84520

== ENCOUNTER → 2022-02-22 09:28 | Outpatient (CLI) | payer MEDICARE, OTHER, SELFPAY ==
[2021-09-02 12:47] VITALS: BMI 31.8
--- NOTE | 2022-02-22 09:30 | DI.CT.S_ITS ---
PROCEDURE: CT ANGIO CHEST PE PROTOCOL INDICATIONS: followup PE TECHNIQUE: After the administration of intravenous contrast, 2 mm thick sections acquired from the pulmonary apices to the posterior costophrenic angles. 3-dimensional maximum intensity projection (MIP) coronal and sagittal reformats were then acquired through the thorax. For radiation dose reduction, the following was used: automated exposure control, adjustment of mA and/or kV according to patient size. COMPARISON: [facility], CT, CT ANGIO CHEST PE PROTOCOL, 09/20/2021, 14:38. FINDINGS: Image quality: Excellent. Pulmonary arteries: Resolution of previous extensive right-sided pulmonary emboli and less extensive left-sided pulmonary emboli. Pulmonary arteries are normal in caliber. Lungs and pleura: Lungs are clear. 3 mm subpleural right upper lobe pulmonary nodule, image 117/5. This is unchanged. Reference previous image 100/5. No pleural effusions or pneumothorax. Central and peripheral airways are patent. Mediastinum: Heart size is normal, without pericardial effusion. No mediastinal or hilar adenopathy. Thoracic aorta is normal in caliber and enhancement. Esophagus is normal in caliber, without hiatal hernia. Bones and chest wall: No suspicious bony lesions. Ribs and thoracic spine appear intact throughout. Thyroid gland is unremarkable as visualized. No axillary or supraclavicular adenopathy. Abdomen: Visualized upper abdominal solid organs appear normal in the early arterial phase of enhancement. IMPRESSION: 1. Resolution of previous pulmonary emboli. 2. No evidence of sequelae of previous pulmonary emboli. 3. Stable 3 mm pulmonary nodule, right upper lobe, x5 months. Please refer to chart below for nodule follow-up recommendations. Fleischner Society criteria for SOLID lung nodule followup. Nodule size (mm)Low-risk patientHigh-risk patient<6 (single or multiple)No routine followup.Optional CT at 12 months. 6-8 (single or multiple)CT at 6-12 months, then optional CT at 18-24 mo.CT at 6-12 months, then CT at 18-24 months. >8 (single)CT at 3 months, PET-CT, or biopsy. Same as for low-risk pts. >8 (multiple)CT at 3-6 months, then optional CT at 18-24 mo.CT at 3-6 months, then CT at 18-24 months. Fleischner Society criteria for SUB-SOLID lung nodule followup. Solitary pure ground-glass nodules<6 mm (ground glass or part solid)No followup needed. 6 mm or larger (ground glass)CT at 6-12 months to confirm persistence, then CT every 2 years until 5 years.6 mm or larger (part solid)CT at 3-6 months to confirm persistence, then annual CT until 5 years if unchanged and solid component remains <6 mm. Multiple sub-solid nodules<6 mmCT at 3-6 months, then CT consider at 2 & 4 years for high risk patients. [address] at 3-6 months. Subsequent management based on most suspicious lesions. Recommendations do not apply to lung cancer screening, patients with immunosuppression, or patients with known primary cancer. Dictated by: Thien Conley M.D. on 02/22/2022 at 10:30 Approved by: Thien Conley M.D. on 02/22/2022 at 10:34
== END ==
PROVIDERS: Family Provider Internal Medicine; PCP Internal Medicine; Referring Provider Internal Medicine; Visit Provider Internal Medicine
DX: I26.99 Other pulmonary embolism without acute cor pulmonale (principal)
CPT/HCPCS: 71275; Q9967

== ENCOUNTER → 2022-05-15 09:06 | Outpatient (CLI) | payer MEDICARE, OTHER, SELFPAY ==
[2021-09-02 12:47] VITALS: BMI 31.8
[2022-05-15 10:06] LABS: Hematocrit 44.7 % (41-53); Hemoglobin 14.9 g/dL (13.5-17.5); Mean Corpuscular HGB Conc 33.4 % (30-36); Mean Corpuscular Hemoglobin 30.4 PG (26-34); Platelet Count 193 X10^3/uL (150-400); Red Blood Cell Count 4.91 X10^6/uL (4.5-5.9); Red Cell Distribution Width 13.6 % (11.6-14.8); White Blood Cell Count 4.7 X10^3/uL (4.5-11.0)
[2022-05-15 10:28] LABS: Alanine Aminotransferase 22 IU/L (<50); Albumin 4.2 g/dL (3.5-5.0); Albumin Globulin Ratio 1.1 (1.0-2.8); Alkaline Phosphatase 109 U/L (38-126); Aspartate Aminotransferase 24 IU/L (17-59); BUN Creatinine Ratio 17.9 (6-22); Bilirubin Total 0.5 mg/dL (0.2-1.3); Blood Urea Nitrogen 17 mg/dL (9-20); Calcium 8.7 mg/dL (8.4-10.2); Carbon Dioxide 28 mmol/L (22-32); Chloride 105 mmol/L (98-107); Cholesterol 190 mg/dL (140-199); Estimated Glomerular Filt Rate > 60 mL/min (>60); Globulin 3.8 g/dL (1.7-4.1); Glucose 101 mg/dL (80-110); HDL Cholesterol 43 mg/dL (40-60); HEMOLYSIS < 15 (0-50); LDL Cholesterol Calculated 134 mg/dL (<100); Potassium 4.7 mmol/L (3.4-5.1); Sodium 140 mmol/L (137-145); Triglycerides 67 mg/dL (35-150)
[2022-05-15 10:53] LABS: Prostate Specific Antigen 0.949 ng/mL (0.10-4.00)
[2022-05-15 11:09] LABS: TSH w/ Reflex to FT4 3.12 uIU/mL (0.47-4.68)
== END ==
PROVIDERS: Family Provider Internal Medicine; PCP Internal Medicine; Referring Provider Internal Medicine; Visit Provider Internal Medicine
DX: E78.2 Mixed hyperlipidemia (principal); N40.1 Benign prostatic hyperplasia with lower urinary tract symptoms; N13.8 Other obstructive and reflux uropathy; Z86.711 Personal history of pulmonary embolism
CPT/HCPCS: 36415; 80053; 80061; 84153; 84443; 85027

== ENCOUNTER 2022-11-07 19:04 | Emergency (ER) | payer MEDICARE, OTHER, SELFPAY ==
[2021-09-02 12:47] VITALS: BMI 31.8
[2022-11-07] VITALS (9 sets, daily range): BP systolic 121–143; BP diastolic 59–81; PULSE 69–91; RESP 16; TEMP 37.5; O2SAT 92–96; BMI 31.1
--- NOTE | 2022-11-07 19:22 | DI.RAD.S_ITS ---
PROCEDURE: XR CHEST 2V INDICATIONS: sob TECHNIQUE: 2 views of the chest were acquired. COMPARISON: [facility], CR, XR CHEST 2V, 09/20/2021, 13:25. FINDINGS: Surgical changes and devices: None. Lungs and pleura: Minimal streaky bibasilar opacities likely representing atelectasis. No focal consolidation. No pleural effusions or pneumothorax. Mediastinum: Mediastinal contours are normal. Heart size is normal. Bones and chest wall: No suspicious bony abnormalities. Soft tissues appear unremarkable. IMPRESSION: Minimal streaky bibasilar opacities likely representing atelectasis. No focal consolidation. Otherwise, no acute cardiopulmonary abnormality seen. Dictated by: Chris Weaver M.D. on 11/07/2022 at 19:56 Approved by: Chris Weaver M.D. on 11/07/2022 at 19:56
[2022-11-07 20:16] LABS: Influenza A - CEPHEID Flu A NEGATIVE (NEGATIVE); Influenza B - CEPHEID Flu B NEGATIVE (NEGATIVE); Respiratory Syncytial Virus Negative (Negative)
[2022-11-07 20:46] LABS: COVID-19 CEPHEID 4-PLEX PCR Negative (Negative)
[2022-11-07] MEDS: BENZONATATE 100 MG CAPSULE PO (23:14)
[2022-11-07 23:28] LABS: Add Manual Diff / Slide Review NO; Basophils Absolute Auto 0 /uL (0-100); Basophils Percent Auto 0.4 % (0-2); Eosinophils Absolute Auto 0 /uL (0-450); Eosinophils Percent Auto 0.2 % (2-4); Hematocrit 37.8 % (41-53); Hemoglobin 13.1 g/dL (13.5-17.5); Lymphocytes Absolute Auto 1200 /uL (1100-4500); Lymphocytes Percent Auto 9.2 % (25-40); Mean Corpuscular HGB Conc 34.7 % (30-36); Mean Corpuscular Hemoglobin 31.1 PG (26-34); Mean Corpuscular Volume 89.6 fL (80-100); Monocytes Absolute Auto 1000 /uL (0-900); Monocytes Percent Auto 8.1 % (3-14); Neutrophils Absolute Auto 10500 /uL (1500-7000); Neutrophils Percent Auto 82.1 % (50-75); Platelet Count 200 X10^3/uL (150-400); Red Blood Cell Count 4.22 X10^6/uL (4.5-5.9); Red Cell Distribution Width 13.2 % (11.6-14.8); White Blood Cell Count 12.8 X10^3/uL (4.5-11.0)
[2022-11-07 23:29] LABS: D Dimer 709 ng/ml (<500)
[2022-11-07 23:30] LABS: Alanine Aminotransferase 45 IU/L (<50); Albumin 3.8 g/dL (3.5-5.0); Alkaline Phosphatase 95 U/L (38-126); Aspartate Aminotransferase 50 IU/L (17-59); BUN Creatinine Ratio 23.4 (6-22); Bilirubin Total 0.7 mg/dL (0.2-1.3); Blood Urea Nitrogen 22 mg/dL (9-20); Calcium 8.7 mg/dL (8.4-10.2); Carbon Dioxide 27 mmol/L (22-32); Chloride 100 mmol/L (98-107); Estimated Glomerular Filt Rate > 60 mL/min (>60); Globulin 3.7 g/dL (1.7-4.1); Glucose 143 mg/dL (80-110); HEMOLYSIS 26 (0-50); Potassium 3.9 mmol/L (3.4-5.1); Sodium 134 mmol/L (137-145); Total Protein 7.5 g/dL (6.3-8.2)
[2022-11-08] VITALS: BP 151/79; PULSE 72; O2SAT 97
--- NOTE | 2022-11-08 00:03 | ED_ITS ---
HPI - General Adult General Chief complaint: Upper Respiratory Symptoms Stated complaint: SOB,fever, cough,post 12hr plane ride Time Seen by Provider: 11/07/22 23:52 Source: patient Mode of arrival: Ambulatory History of Present Illness HPI narrative: 72-year-old gentleman with a history of hyperlipidemia and BPH who recently returned from a vacation in [facility]. Upon his return he developed upper respiratory symptoms described as mild cough low-grade fevers general body aches. Seem to improve after approximately 7 days and then noted fevers increased into the 103 range, increase coughing, myalgias, fatigue and overall gentleman malaise. He does not describe a cough is productive. Had no other chest pain does not describe significant orthopnea but he notes that if he is laying flat his cough does seem to be a bit worse. He is not complaining of headache, palpitations, nausea, vomiting or diarrhea Related Data Previous Rx's Medication Instructions Recorded rosuvastatin 10 mg tablet 10 mg PO DAILY #90 tabs 10/05/22 tamsulosin 0.4 mg capsule 0.4 mg PO DAILY #90 caps 10/05/22 benzonatate 200 mg capsule 200 mg PO BID-TID PRN cough #14 11/08/22 caps doxycycline hyclate 100 mg capsule 100 mg PO BID #10 caps 11/08/22 hydrocodone 5 mg-acetaminophen 325 0.5 - 1 tab PO Q6H PRN pain #10 11/08/22 mg tablet tabs Allergies Allergy/AdvReac Type Severity Reaction Status Date / Time tree nut Allergy Severe Anaphylaxis Verified 11/07/22 19:19 Review of Systems Review of Systems Narrative: Remainder of complete review of systems is otherwise unremarkable except for that included in the HPI. 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 Does have a significant and intrusive dry cough. HEENT: Moist mucous membranes, normal sclera with reactive pupils, Neck: No JVD, supple Respiratory: Lungs with full and symmetrical air movement. No wheeze, no crackles he does have some rhonchi in his right mid axillary line Cardiac: Regular rate and rhythm, 2/6 systolic ejection murmur without bruit. Abdomen: Soft, nontender, good bowel tones, no flank pain Skin: Warm and dry, no rashes Neurologic: Grossly neurologically intact with no obvious asymmetries or abnormalities Extremities: No trauma, well perfused Psych: Cooperative, appropriate insight and affect Course Orders Ordered: ED Orders 11/07/22 23:09 Complete Blood Count AUTO DIFF Stat Comprehensive Metabolic Panel Stat D Dimer Stat Discontinued Medications Hydrocodone Bitart/Acetaminophen (Hydrocodone/Acet 5/325 Tablet) 1 tab PO NOW ONE Stop: 11/08/22 00:04 Last Admin: 11/08/22 00:09 Dose: 1 tab Documented By: Benzonatate (Benzonatate 100 Mg Capsule) 100 mg PO NOW ONE Stop: 11/07/22 23:04 Last Admin: 11/07/22 23:14 Dose: 100 mg Documented By: Doxycycline Hyclate (Doxycycline Hyclate 100 Mg Tablet) 100 mg PO NOW ONE Stop: 11/08/22 00:04 Last Admin: 11/08/22 00:10 Dose: 100 mg Documented By: Vital Signs Vital signs: Vital Signs - 8 hr 11/07/22 21:00 11/07/22 21:00 11/07/22 21:30 Pulse Rate 71 84 Blood Pressure 123/66 Pulse Oximetry 92 93 11/07/22 22:00 11/07/22 22:00 11/07/22 22:30 Pulse Rate 77 79 Blood Pressure 138/71 Pulse Oximetry 95 94 11/07/22 23:00 11/07/22 23:00 11/07/22 23:30 Pulse Rate 77 69 Blood Pressure 125/59 L Pulse Oximetry 93 94 11/08/22 00:00 11/08/22 00:00 Pulse Rate 72 Blood Pressure 151/79 H Pulse Oximetry 97 Medical Decision Making Lab Data 11/07/22 23:09 11/07/22 23:09 Labs: Lab Results 11/07/22 11/07/22 11/07/22 Range/Units 19:15 23:09 23:09 WBC 12.8 H (4.5-11.0) X10^3/uL RBC 4.22 L (4.5-5.9) X10^6/uL Hgb 13.1 L (13.5-17.5) g/dL Hct 37.8 L (41-53) % MCV 89.6 (80-100) fL MCH 31.1 (26-34) PG MCHC 34.7 (30-36) % RDW 13.2 (11.6-14.8) % Plt Count 200 (150-400) X10^3/uL Neut % (Auto) 82.1 H (50-75) % Lymph % (Auto) 9.2 L (25-40) % Carolina % (Auto) 8.1 (3-14) % Eos % (Auto) 0.2 L (2-4) % Baso % (Auto) 0.4 (0-2) % Neut # (Auto) 68364 H (1308-1501) /uL Lymph # (Auto) 1200 (9599-1771) /uL Carolina # (Auto) 1000 H (0-900) /uL Eos # (Auto) 0 (0-450) /uL Baso # (Auto) 0 (0-100) /uL D-Dimer 709 H (<500) ng/ml Sodium (137-145) mmol/L Potassium (3.4-5.1) mmol/L Chloride (98-107) mmol/L Carbon Dioxide (22-32) mmol/L BUN (9-20) mg/dL Creatinine (0.66-1.25) mg/dL Estimated GFR (>60) mL/min BUN/Creatinine Ratio (6-22) Glucose (80-110) mg/dL Calcium (8.4-10.2) mg/dL Total Bilirubin (0.2-1.3) mg/dL AST (17-59) IU/L ALT (<50) IU/L Alkaline Phosphatase (38-126) U/L Total Protein (6.3-8.2) g/dL Albumin (3.5-5.0) g/dL Globulin (1.7-4.1) g/dL Albumin/Globulin Ratio (1.0-2.8) SARS-CoV-2 (PCR) Negative (Negative) Influenza A (RT-PCR) Flu a negative (NEGATIVE) Influenza B (RT-PCR) Flu b negative (NEGATIVE) RSV (PCR) Negative (Negative) 11/07/22 Range/Units 23:09 WBC (4.5-11.0) X10^3/uL RBC (4.5-5.9) X10^6/uL Hgb (13.5-17.5) g/dL Hct (41-53) % MCV (80-100) fL MCH (26-34) PG MCHC (30-36) % RDW (11.6-14.8) % Plt Count (150-400) X10^3/uL Neut % (Auto) (50-75) % Lymph % (Auto) (25-40) % Carolina % (Auto) (3-14) % Eos % (Auto) (2-4) % Baso % (Auto) (0-2) % Neut # (Auto) (5652-7953) /uL Lymph # (Auto) (7439-0233) /uL Carolina # (Auto) (0-900) /uL Eos # (Auto) (0-450) /uL Baso # (Auto) (0-100) /uL D-Dimer (<500) ng/ml Sodium 134 L (137-145) mmol/L Potassium 3.9 (3.4-5.1) mmol/L Chloride 100 (98-107) mmol/L Carbon Dioxide 27 (22-32) mmol/L BUN 22 H (9-20) mg/dL Creatinine 0.94 (0.66-1.25) mg/dL Estimated GFR > 60 (>60) mL/min BUN/Creatinine Ratio 23.4 H (6-22) Glucose 143 H (80-110) mg/dL Calcium 8.7 (8.4-10.2) mg/dL Total Bilirubin 0.7 (0.2-1.3) mg/dL AST 50 (17-59) IU/L ALT 45 (<50) IU/L Alkaline Phosphatase 95 (38-126) U/L Total Protein 7.5 (6.3-8.2) g/dL Albumin 3.8 (3.5-5.0) g/dL Globulin 3.7 (1.7-4.1) g/dL Albumin/Globulin Ratio 1.0 (1.0-2.8) SARS-CoV-2 (PCR) (Negative) Influenza A (RT-PCR) (NEGATIVE) Influenza B (RT-PCR) (NEGATIVE) RSV (PCR) (Negative) MDM Narrative Medical decision making narrative: CC: 72-year-old gentleman with 10 days of illness worsening over the last 3 days now with recurrent fevers and progressive cough. This is a new problem with uncertain prognosis. Complicating co-morbidities: Hypertension, BPH. Patient does have a history of provoked pulmonary embolism after orthopedic surgery. He was anticoagulated for 6 months and has been doing well recently. Data collected from: patient, Social determinants of health that may influence the patients condition: Recent return from a long trip to [place] Medical records reviewed: Walk-in clinic notes from November 05, primary care notes from October 13 are reviewed Differential considered: Viral syndrome, bacterial pneumonia, pneumothorax, acute coronary syndrome, congestive heart failure. Doubt pulmonary embolism based on no hypoxia, no tachycardia Exam documented above, pertinent findings include: Mild rhonchi in his right mid axillary line with significant nonproductive cough otherwise. Lab Test results independently reviewed as above. Pertinent findings: CBC shows Mild leukocytosis at 12.8 with left shift at 82.1. Chronic stable anemia at 13.1 and 37.8 Chemistries reveal blood sugar minimally elevated at 143 with no other si gnificant abnormalities Imaging studies independently reviewed: Chest x-ray shows minimal streaky bibasilar opacities likely representing atelectasis according to radiologist. Given the rhonchi in his right mid axillary line I suspect this is more developing bacterial pneumonia in the a post viral infection Discussion: 72-year-old gentleman with classic viral symptoms for approximately a week getting significantly worse now with recurrent fevers and increasing cough that is preventing him from sleeping. Clinically he has a right middle lobe pneumonia and would placed on doxycycline. There is no evidence of congestive heart failure, acute coronary syndrome and I do not suspect pulmonary embolism today. He has no lower extremity edema. He is given benzonatate as well as hydrocodone to help suppress his cough with instructions on appropriate use and concerns regarding the narcotic. Will ask him to follow up with his primary care physician. At this point there is no evidence of sepsis, impending respiratory distress, need for additional medical workup for advanced imaging. All of this is reviewed with patient and he will be discharged home. Discharge Plan Departure Patient Disposition: Home Clinical Impression: Bacterial lobar pneumonia Instructions: DI for Pneumonia -- Adult Activity Restrictions/Additional Instructions: Thank you for coming in tonight I suspect this started with a viral infection. Getting worse after 7 days with increasing cough, decreased appetite, exertional dyspnea and the temperature back up to 103? all suggests that bacteria have taken advantage of the fact that you had a viral infection and you now have a bacterial pneumonia. On your clinical exam it sounds like it is probably in your right middle lobe. I am going to have you complete 5 days of doxycycline, an antibiotic. I have also given you prescriptions for benzonatate as well as hydrocodone both to help suppress her cough and hopefully get to some sleeps for your body can truly began to heal. All prescriptions have been electronically transmitted to [facility], [place] At this time I do not suspect sepsis, heart attack, heart failure, pulmonary emboli or alternate explanations that would require further workup or hospitalization at this time. If you find that you are getting worse or develop any new symptoms, please feel free to return to the emergency department for further evaluation. Prescriptions: New hydrocodone-acetaminophen 5-325 mg tablet 0.5 - 1 tab PO Q6H PRN (Reason: pain) Qty: 10 0RF benzonatate 200 mg capsule 200 mg PO BID-TID PRN (Reason: cough) Qty: 14 0RF doxycycline hyclate 100 mg capsule 100 mg PO BID Qty: 10 0RF No Action rosuvastatin 10 mg tablet 10 mg PO DAILY Qty: 90 3RF tamsulosin 0.4 mg capsule 0.4 mg PO DAILY Qty: 90 3RF Referrals: Hector Aguirre MD [Primary Care Provider] - Stand Alone Forms: Patient Portal/API
[2022-11-08] MEDS: HYDROCODONE/ACET 5/325 TABLET 1 TAB PO (00:09)
[2022-11-08] MEDS: DOXYCYCLINE HYCLATE 100 MG TABLET PO (00:10)
== END 2022-11-08 00:23 | disposition home or self-care (01) ==
PROVIDERS: Emergency Provider Emergency Medicine; Family Provider Internal Medicine; PCP Internal Medicine
DX: J15.9 Unspecified bacterial pneumonia (principal); Z20.822 Contact with and (suspected) exposure to COVID-19
CPT/HCPCS: 0241U; 36415; 71046; 80053; 85025; 85379; 99283; 99284

== ENCOUNTER → 2023-05-07 14:53 | Outpatient (CLI) | payer MEDICARE, OTHER, SELFPAY ==
[2022-11-08 09:36] VITALS: BMI 31.8
[2023-05-07 16:57] LABS: Add Manual Diff / Slide Review NO; Basophils Absolute Auto 100 /uL (0-100); Basophils Percent Auto 0.7 % (0-2); Eosinophils Absolute Auto 200 /uL (0-450); Hemoglobin 15.2 g/dL (13.5-17.5); Lymphocytes Absolute Auto 1300 /uL (1100-4500); Lymphocytes Percent Auto 17.4 % (25-40); Mean Corpuscular HGB Conc 34.5 % (30-36); Mean Corpuscular Hemoglobin 31.4 PG (26-34); Mean Corpuscular Volume 90.9 fL (80-100); Monocytes Absolute Auto 500 /uL (0-900); Monocytes Percent Auto 7.2 % (3-14); Neutrophils Absolute Auto 5200 /uL (1500-7000); Neutrophils Percent Auto 71.7 % (50-75); Platelet Count 215 X10^3/uL (150-400); Red Blood Cell Count 4.84 X10^6/uL (4.5-5.9); Red Cell Distribution Width 12.3 % (11.6-14.8); White Blood Cell Count 7.2 X10^3/uL (4.5-11.0)
[2023-05-07 17:19] LABS: Alanine Aminotransferase 25 IU/L (<50); Albumin 4.4 g/dL (3.5-5.0); Albumin Globulin Ratio 1.2 (1.0-2.8); Alkaline Phosphatase 94 U/L (38-126); Aspartate Aminotransferase 30 IU/L (17-59); BUN Creatinine Ratio 24.5 (6-22); Bilirubin Total 0.3 mg/dL (0.2-1.3); Blood Urea Nitrogen 25 mg/dL (9-20); Calcium 9.7 mg/dL (8.4-10.2); Carbon Dioxide 27 mmol/L (22-32); Chloride 101 mmol/L (98-107); Estimated Glomerular Filt Rate > 60 mL/min (>60); Globulin 3.6 g/dL (1.7-4.1); Glucose 124 mg/dL (80-110); HEMOLYSIS 30 (0-50); Potassium 4.7 mmol/L (3.4-5.1); Sodium 137 mmol/L (137-145)
[2023-05-07 17:31] LABS: Free T4, Direct Thyroxine 1.23 ng/dL (0.78-2.19)
== END ==
PROVIDERS: PCP Internal Medicine; Referring Provider Family Medicine; Visit Provider Family Medicine
DX: D64.9 Anemia, unspecified (principal); E87.6 Hypokalemia; I25.10 Atherosclerotic heart disease of native coronary artery without angina pectoris
CPT/HCPCS: 36415; 80053; 84439; 84443; 85025

== ENCOUNTER → 2023-05-17 11:20 | Outpatient (CLI) | payer MEDICARE, OTHER, SELFPAY ==
[2022-11-08 09:36] VITALS: BMI 31.8
[2023-05-17 13:09] LABS: Aspartate Aminotransferase 29 IU/L (17-59); BUN Creatinine Ratio 19.4 (6-22); Blood Urea Nitrogen 19 mg/dL (9-20); Calcium 9.4 mg/dL (8.4-10.2); Carbon Dioxide 26 mmol/L (22-32); Chloride 104 mmol/L (98-107); Cholesterol 119 mg/dL (140-199); Estimated Glomerular Filt Rate > 60 mL/min (>60); Glucose 68 mg/dL (80-110); HDL Cholesterol 31 mg/dL (40-60); HEMOLYSIS < 15 (0-50); LDL Cholesterol Calculated 70 mg/dL (<100); Potassium 4.6 mmol/L (3.4-5.1); Sodium 139 mmol/L (137-145); Triglycerides 89 mg/dL (35-150)
[2023-05-17 13:34] LABS: Prostate Specific Antigen 1.14 ng/mL (0.10-4.00)
== END ==
PROVIDERS: PCP Internal Medicine; Referring Provider Internal Medicine; Visit Provider Internal Medicine
DX: N40.1 Benign prostatic hyperplasia with lower urinary tract symptoms (principal); E78.2 Mixed hyperlipidemia; N13.8 Other obstructive and reflux uropathy; I25.10 Atherosclerotic heart disease of native coronary artery without angina pectoris
CPT/HCPCS: 36415; 80048; 80061; 84153; 84450

== ENCOUNTER 2023-08-23 10:15 | Outpatient (RCR) | payer MEDICARE, OTHER, SELFPAY ==
[2022-11-08 09:36] VITALS: BMI 31.8
--- OUTSIDE RECORDS SUMMARY | 2023-06-01 14:28 | XMS_ITS ---
Author Name Unknown Organization [facility] Address [address] [place] [address] Care Team Providers Care Elevator Constructor Electric Name Role Phone Hector Aguirre MD Primary Care Provider [phone] Reason for Referral * Consultation (Emergency) - Authorized Specialty Diagnoses / Procedures Referred By Sean bucio Referred To Contact Cardiology Diagnoses NSTEMI (non-ST elevated myocardial infarction) ([facility]) Key Yoo ARNP [address] [place] [address] [address] [place] [address] [facility] Cardiology [address] [place] [address], [address] [place] [address] Referral ID Status Reason Start Date Expiration Date Visits Requested Visits Authorized [id number] Authorized Specialty Services Required 04/10/2024 6 6 Scheduling Instructions 2-3 weeks s/p PCI * Hospital - Outpatient (Routine) - Authorized Specialty Diagnoses / Procedures Referred By Sean bucio Referred To Contact Diagnoses NSTEMI (non-ST elevated myocardial infarction) ([facility]) Lonny Fried MD [address] [place] [address] [address] [place] [address] [address] Referral ID Status Reason Start Date Expiration Date V isits Requested Visits Authorized [id number] Authorized 04/14/2023 04/08/2024 1 1 Reason for Visit * Reason Comments Chest Pain * Auth/Cert (Routine) Specialty Diagnoses / Procedures Referred By Sean t Referred To Contact Diagnoses ACS (acute coronary syndrome) ([facility]) NSTEMI (non-ST elevated myocardial infarction) ([facility]) Procedures INPATIENT Referral ID Status Reason Start Date Expiration Date Visits Re quested Visits Authorized [id number] 1 1 Encounter Details Date Type Department Care Team Description 04/14/2023 7:35 PM PDT - 04/16/2023 3:00 PM PDT Hospital Encounter Formerly [facility] Progressive and Critical [facility] Unit [address] [place] [address] Lauren De Leon MD [address] [id number] Lonny Fried MD [address] [address] [place], [place] [id number] Lauren De Anda MD [address] [place], [place] [id number] Ethan Riley DO [address] [place] [id number] NSTEMI (non-ST elevated myocardial infarction) ([facility]) (Primary Dx); ACS (acute coronary syndrome) ([facility]); Chest pain, unspecified type Discharge Disposition: Home/Self Care Allergies Active Allergy Reactions Criticality Noted Date Comments Tree Nuts Anaphylaxis High 09/30/2021 documented as of this encounter (statuses as of 04/23/2023) Medications Medication Sig Dispensed Refills Start Date End Date Status tamsulosin (FLOMAX) 0.4 mg capsule Take 1 capsule (0.4 mg total) by mouth daily 0 09/01/2021 Active acetaminophen (TYLENOL) 325 mg tablet Take 325 mg by mouth as needed for mild pain 0 Active rosuvastatin (CRESTOR) 20 mg tablet Take 1 tablet (20 mg total) by mouth nightly 30 tablet 11 04/16/2023 04/15/2024 Active aspirin 81 mg chewable tablet Take 1 tablet (81 mg total) by mouth daily 30 tablet 11 04/17/2023 04/16/2024 Active clopidogreL (PLAVIX) 75 mg tablet Take 1 tablet (75 mg total) by mouth daily 30 tablet 11 04/17/2023 04/16/2024 Active lisinopriL (PRINIVIL) 5 mg tablet Take 1 tablet (5 mg total) by mouth daily 30 tablet 11 04/17/2023 04/16/2024 Active metoprolol tartrate (LOPRESSOR) 25 mg tablet Take 0.5 tablets (12.5 mg total) by mouth 2 (two) times a day 30 tablet 11 04/16/2023 04/15/2024 Active Eliquis 5 mg tablet TAKE TWO TABLETS BY MOUTH TWICE DAILY FOR 7 DAYS THEN ONE TABLET BY MOUTH TWICE DAILY AFTER 0 09/20/2021 04/16/2023 Discontinued (Stop Taking at Discharge) rosuvastatin (CRESTOR) 10 mg tablet Take 1 tablet (10 mg total) by mouth daily 0 07/11/2021 04/16/2023 Discontinued (Stop Taking at Discharge) naproxen (NAPROSYN) 375 mg tablet Take 400 mg by mouth 2 (two) times a day with meals 0 04/16/2023 Discontinued (Stop Taking at Discharge) pseudoephedrine (SUDAFED) 30 mg tablet Take 30 mg by mouth every 4 (four) hours as needed for congestion 0 04/16/2023 Discontinued (Stop Taking at Discharge) spironolactone (ALDACTONE) 25 mg tablet Take 1 tablet (25 mg total) by mouth daily 30 tablet 11 04/17/2023 04/18/2023 Discontinued (Side effects) documented as of this encounter (statuses as of 04/23/2023) Active Problems Problem Noted Date Diagnosed Date Non-ST elevation (NSTEMI) myocardial infarction 04/15/2023 documented as of this encounter (statuses as of 04/23/2023) Immunizations Name Administration Dates Next Due Moderna SARS-CoV-2 Vaccine Monovalent 09/11/2020 ,08/14/2020 documented as of this encounter Social History Tobacco Use Types Packs/Day Years Used Date Smoking Tobacco: Former Cigarettes 1 5 Q uit: 1972 Smokeless Tobacco: Never Alcohol Use Standard Drinks/Week Comments Yes 1 (1 standard drink = 0.6 oz pur e alcohol) Overall Financial Resource Strain (CARDIA) Answe r Date Recorded How hard is it for you to pa y for the very basics like food, housing, medical care, and heating? Not hard at all 04/15/2023 Hunger Vital Sign Answer Date Recorded Within the past 12 months, y ou worried that your food would run out before you got the money to buy more. Never true 04/15/20 23 Within the past 12 months, t he food you bought just didn't last and you didn't have money to get more. Never true 04/15/2023 PRAPARE - Transportation Answer Date Re corded In the past 12 months, has l ack of transportation kept you from medical appointments or from getting medications? No 04/01 In the past 12 months, has l ack of transportation kept you from meetings, work, or from getting things needed for daily living? No 04/15/2023 Housing Stability Vital Sign Answer Dc e Recorded In the last 12 months, was t here a time when you were not able to pay the mortgage or rent on time? No 04/15/2023 In the last 12 months, how many places have you lived? 1 04/15/2023 In the last 12 months, was t here a time when you did not have a steady place to sleep or slept in a alf (including now)? No 04/15/2023 Sex and Gender Information Value Date Recorded Sex Assigned at Male 04/14/2023 11:41 PM PDT Gender Identity Male 04/14/2023 11:41 PM PDT Sexual Orientation Not on file Job Start Date Occupation Industry Not on file Not on file Not on file documented as of this encounter Last Filed Vital Signs Vital Sign Reading Time Taken Comments Blood Pressure 124/76 04/16/2023 12:00 PM PDT Pulse 63 04/16/2023 12:00 PM PDT Temperature 36.8 ??C (98.2 ??F) 04/16/2023 12:00 PM P DT Respiratory Rate 18 04/16/2023 12:00 PM PDT Oxygen Saturation 98% 04/16/2023 12:00 PM PDT Inhaled Oxygen Concentration - - Weight 111 kg (244 lb 14.9 oz) 04/14/2023 9:47 P M PDT Height 182.9 cm (6') 04/14/2023 7:45 PM PDT Body Mass Index 33.22 04/14/2023 7:45 PM PDT documented in this encounter Discharge Summaries * Anabelle Devlin MD - 04/16/2023 2:05 PM PDT HOSPITALISTNOTESLIST: [facility]: DISCHARGE SUMMARY Patient Name: Javi Robertson Date of : 1950 Age: 73 y.o. Code Status: Full Code Primary Care Physician: Hector Aguirre MD Admitting Provider: Lonny Fried MD Attending Provider: Ethan Riley DO Admit Date: 04/14/2023 Date of Service: 04/16/2023 Hospital Day: 2 Discharge destination: Home Follow up plan: Follow up with PCP (Hector Aguirre MD) within 6 days. Please call tomorrow to make an appointment , patient and family agree to participate in this care step cardiology within 4 weeks PATIENT DISCHARGE INSTRUCTIONS- You were admitted for evaluation and management of chest pain. You have underwent cardiac catheterization with placement of a drug-eluting stent. It is a procedure went up by as injected inside your cardiac vessels to visualize any blockages or obstructions. A stent is a tiny tube that is placed inside one of your vessels to make them patent again. We are also starting you on several medications to help your heart recover and reduce the risk of future cardiovascular events. Please start taking Plavix 75 mg daily with aspirin 81 mg daily. These are antiplatelet medications. Please continue taking Plavix for 1 year from now, continue taking aspirin indefinitely. Please continue taking metoprolol 12.5 mg twice daily, spironolactone 25 mg daily and lisinopril 5 mg daily. These medications will help with blood pressure management and will also reduce the strainon the heart and help it recover. Please see additional recommendations from the cardiology team regarding these medications below. Please continue taking rosuvastatin 20 mg daily to reduce the cholesterol burden and prevent plaqueformation in your vessels. Please adhere to a heart healthy diet, restrict your sodium intake to 2 grams daily. Follow-up with cardiology and your primary care provider. Please read and review the attached instructions as it lists what medications you should be taking & when. It also indicates when your next appointments are. Please follow-up with your primary care doctor in 1-2 weeks for a hospital follow-up visit. If your scheduled PCP appointment is not listed in this paperwork, then please call and make an appointment within 1-2 weeks. I will forward over a copy of your hospital records to them. *Please go to the emergency department for any new or worsening symptoms including any non-stop nausea or vomiting, new or worsening abdominal pain, new or worsening headache, new vision changes, newor worsening shortness of breath, new or worsening chest pain, one-sided weakness or numbness, fevers greater than 101.4??F, chills, or if there's anything else of concern to you. Wound Care - Okay to remove dressing the day after procedure and shower. Use warm water, mild soap, and pat dry - Dressing can be left off or a bandage placed over the site if there is some fluid coming out - [place]/clear fluid and small amounts of blood are normal, please call the office for pus draining from the site or hold pressure and call 911 for bleeding from the site that cannot be controlled - Keep the incision clean and dry, do not use lotions, creams, or ointments - No sitting or soaking in pools, hot tubs, or bathtubs for 7 days General Care - No lifting, pushing, or pulling anything heavier than 10 pounds for 7 days - Do not perform activities that are strenuous or require you to strain for one week - Gradually increase your activity until you reach your prior activity level - You will discuss cardiac rehabilitation at your follow up appointment - Please follow a heart healthy diet Medications - Please continue to take your aspirin and statin medication lifelong - Please continue to take your clopidogrel (Plavix) for 1 year. - Please check your blood pressure and heart rate prior to taking metoprolol, lisinopril, and spironolactone. If your systolic blood pressure (top number) is less than 100 please call the final finisher forging dies's office to advise before taking medications. If your heart rate is less than 55 beats per minute,please hold the metoprolol. Please call your final finisher forging dies's office for: - Pus, redness, warmth, or unusual drainage coming from your procedure site - A hard lump or bump under your procedure site Please call 911 for: - Difficulty breathing/shortness of breath - Bleeding from the procedure site that cannot be controlled - Any sudden or severe chest pain - Loss of sensation in your to your (hand/leg) INSTRUCTIONS FOR MEDICAL PROVIDERS- (Address at next Office/Tele/SNF Visit) -Review medications -Order CBC and CMP -Discuss pain levels and breathing -Evaluate right femoral artery catheterization access site -Discuss heart healthy diet -Make sure patient is following up with cardiology -Follow-up on thyroid function tests Multidisciplinary Rounds Note: The patient was discussed with the RN on the day of this note : YES, non bedside. Issues discussed : Discharge needs Brief Reason for Admission From the H&P performed by Lonny Fried MD on 04/14/2023: Javi Robertson is a 73 y.o. male with past medical history of hypertension, hyperlipidemia, pulmonary embolism and obstructive sleep apnea presented to the ED for evaluation and management of chest pain. Consultants : cardiology Hospital Course Summary Statement: Patient presented with complaints of acute chest pressure that radiated to his jaw, and progressive dyspnea with exertion (2-3 months). Troponin I peaked at >80,000. EKG demonstrated diffuse ST depressions and leads II, 3, aVF, V4 through V6. Echocardiogram 04/16/23 demonstrated LVEF 45-50% (no prior exam for comparison) and severe hypokinesis of the anterolateral wall and mid anterior septum. LHC 04/14/23 demonstrated a transapical LAD proximal stenosis 40%, a large first diagonal with proximal stenosis 30%, and occlusion of the second diagonal. Status post PCI with MARIBETH x 1 to the second diagonal. -Continue aspirin 81 mg daily -Continue clopidogrel 75 mg daily (DAPT through 04/14/2024) -Continue rosuvastatin 20 mg nightly -Continue metoprolol tartrate 12.5 mg twice daily -Continue lisinopril 5 mg daily -Continue spironolactone 25 mg daily On discharge patient was euvolemic and without dyspnea at rest or with mild to moderate exertion. Education provided on dietary life style management with fluid and sodium restriction. Patient will follow up with Cardiology Dr Kapoor as an outpatient. By problem: NSTEMI, present on admission. Resolved -Patient presented with complaints of acute chest pressure that radiated to his jaw, and progressive dyspnea with exertion (2-3 months). Troponin I peaked at >80,000. EKG demonstrated diffuse ST depressions and leads II, 3, aVF, V4 through V6. Echocardiogram 04/16/23 demonstrated LVEF 45-50% (noprior exam for comparison) and severe hypokinesis of the anterolateral wall and mid anterior septum. Cardiac catheterization on 04/14/23 demonstrated 100% stenosis of second lateral branch, status post PCI with MARIBETH x1. -Continue aspirin 81 mg daily -Continue clopidogrel 75 mg daily (DAPT through 04/14/2024) -Continue rosuvastatin 20 mg nightly -Continue metoprolol tartrate 12.5 mg twice daily Coronary artery disease, present on admission. Active and stable -NSTEMI 04/14/23. [facility] 04/14/23 demonstrated a transapical LAD proximal stenosis 40%, a large first diagonal with proximal stenosis 30%, and occlusion of the second diagonal. Status post PCI with MARIBETH x 1 to the second diagonal. -Continue aspirin 81 mg daily -Continue clopidogrel 75 mg daily (DAPT through 04/14/2024) -Continue rosuvastatin 20 mg nightly (Goal LDL <70) -Continue metoprolol tartrate 12.5 mg twice daily Ischemic cardiomyopathy LVEF 45-50%, present on admission. Active and stable -Associated with NSTEMI 04/14/23. -Echocardiogram 04/16/23 demonstrated LVEF 45-50% (no prior exam for comparison), severe hypokinesis of the anterolateral wall and mid anterior septum, borderline dilated right ventricle with normal right systolic function. -Continue metoprolol tartrate 12.5 mg twice daily -Continue lisinopril 5 mg daily -Continue spironolactone 25 mg daily -On discharge patient was euvolemic and without dyspnea at rest or mild exertion. -Education provided on dietary life style management with fluid and sodium restriction. Subclinical hypothyroidism, present on admission. 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 -Patient has a history of pulmonary embolism, which was provoked, happened after patient underwent a total knee arthroplasty in August 2021 -He was then placed on Eliquis for a total course of 6 months, which he has completed Body mass index is 33.22 kg/m??. No results found for: SARSCOVLOT, SARSCOV Admission Diagnosis(es) ACS (acute coronary syndrome) ([facility]) [I24.9] NSTEMI (non-ST elevated myocardial infarction) ([facility]) [I21.4] Present on Admission: None Discharge Diagnosis(es) Principal Problem: Non-ST elevation (NSTEMI) myocardial infarction ([facility]) Hospital Operative Procedures * No surgery found * Disposition Javi Robertson was discharged to Home in good condition. Discharge Medications Medication List START taking these medications aspirin 81 mg chewable tablet Take 1 tablet (81 mg total) by mouth daily Start taking on: April 17, 2023 clopidogreL 75 mg tablet Commonly known as: PLAVIX Take 1 tablet (75 mg total) by mouth daily Start taking on: April 17, 2023 lisinopriL 5 mg tablet Commonly known as: PRINIVIL Take 1 tablet (5 mg total) by mouth daily Start taking on: April 17, 2023 metoprolol tartrate 25 mg tablet Commonly known as: LOPRESSOR Take 0.5 tablets (12.5 mg total) by mouth 2 (two) times a day spironolactone 25 mg tablet Commonly known as: ALDACTONE Take 1 tablet (25 mg total) by mouth daily Start taking on: April 17, 2023 CHANGE how you take these medications rosuvastatin 20 mg tablet Commonly known as: CRESTOR Take 1 tablet (20 mg total) by mouth nightly What changed: medication strength how much to take when to take this CONTINUE taking these medications tamsulosin 0.4 mg capsule Commonly known as: FLOMAX STOP taking these medications Eliquis 5 mg tablet Generic drug: apixaban naproxen 375 mg tablet Commonly known as: NAPROSYN pseudoephedrine 30 mg tablet Commonly known as: SUDAFED ASK your doctor about these medications acetaminophen 325 mg tablet Commonly known as: TYLENOL Where to Get Your Medications These medications were sent to [id number] [address] aspirin 81 mg chewable tablet clopidogreL 75 mg tablet lisinopriL 5 mg tablet metoprolol tartrate 25 mg tablet rosuvastatin 20 mg tablet spironolactone 25 mg tablet OBJECTIVE First recorded vitals: Temp: 36.7 ??C (98 ??F) - BP: 120/76 - Heart Rate: 69 - Resp: 24 - SpO2: 98 % O2 Flow Rate (L/min):2 L/min Most recent vitals: Temp: 36.8 ??C (98.2 ??F) - BP: 124/76 - Heart Rate: 63 - Resp: 18 - SpO2: 98 % O2 Flow Rate (L/min): 2 L/min Physical Exam Constitutional: General: He is not in acute distress. Appearance: Normal appearance. HENT: Head: Normocephalic and atraumatic. Mouth/Throat: Pharynx: Oropharynx is clear. Eyes: Extraocular Movements: Extraocular movements intact. Pupils: Pupils are equal, round, and reactive to light. Cardiovascular: Rate and Rhythm: Normal rate and regular rhythm. Heart sounds: Normal heart sounds. No murmur heard. Comments: S1 splitting Pulmonary: Effort: No respiratory distress. Breath sounds: No wheezing. Abdominal: Palpations: Abdomen is soft. Tenderness: There is no abdominal tenderness. Musculoskeletal: General: Normal range of motion. Cervical back: Neck supple. Right lower leg: No edema. Left lower leg: No edema. Skin: General: Skin is warm. Capillary Refill: Capillary refill takes less than 2 seconds. Findings: Lesion (Cardiac catheterization access site in right groin, nonerythematous, nonswollen, nontender) present. Neurological: General: No focal deficit present. Mental Status: He is alert and oriented to person, place, and time. Cranial Nerves: No cranial nerve deficit. Psychiatric: Mood and Affect: Mood normal. Behavior: Behavior normal. I have seen and examined Javi Robertson on 04/16/2023. LABS & DIAGNOSTICS Hematology Results from last 7 days Lab Units 04/16/23 0443 04/15/23 0606 04/14/231947 WBC AUTO x10e3/uL 7.8 8.5 10.5* HEMOGLOBIN g/dL 14.2 14.4 15.1 HEMATOCRIT % 42.7 44.1 43.2 MCV fL 94 96 90 PLATELETS AUTO x10e3/uL 182 185 245 Chemistry Results from last 7 days Lab Units 04/16/23 0926 04/15/2360504/14/231947 SODIUM mmol/L 138 138 141 POTASSIUM mmol/L 4.3 5.2 3.1* CHLORIDE mmol/L 103 109* 108* CO2 mmol/L 24 22 20* BUN mg/dL 16.4 15.4 19.1 CREATININE mg/dL 0.93 0.80 1.00 GLUCOSE mg/dL 124* 113* 126* CALCIUM, SERUM mg/dL 8.7 8.1* 8.7 MAGNESIUM mg/dL -- 1.9 -- AST U/L -- -- 34 ALT U/L -- -- 23 BILIRUBIN TOTAL mg/dL -- -- 0.4 ALBUMIN g/dL -- -- 4.0 TOTAL PROTEIN g/dL -- -- 7.5 Estimated Creatinine Clearance: 83.4 mL/min (by C-G formula based on SCr of 0.93 mg/dL). IMAGING ECHOCARDIOGRAM COMPLETE Result Date: 04/16/2023 Narrative: [facility] +---------+ : : [address] : : : : [place], : : : : [place] [address] : : : : Phone: [phone] Echocardiogram Report + + :Name: JAVI ROBERTSON Study Date: 04/16/2023 Height: 72 in : :[facility] ReadingLocation: [facility] Weight: 245 lb : : Gender: Male BSA: 2.3 m2 : :: 1950 Age: 73 yrsBP: 108/67 mmHg: :Reason For Study: NSTEMI : :Ordering Physician: : :TEJA Performed By: Dayanna Alvarez : :Referring: LONNY FRIED : + + Interpretation Summary Normal left ventricle size with ejection fraction 45-50%. Severe hypokinesis of anterolateral wall and mid anterior septum. Borderline dilated right ventricle with normal right ventricular systolic function. Mild mitral regurgitation. The ascending aorta is moderately enlarged. The aortic arch is mildly enlarged. Procedure: A two- dimensional transthoracic echocardiogram with color flow and Doppler was performed. The study quality was technically adequate. The study was done portably. There is no prior echocardiogram noted for this patient. The patient was in normal sinus rhythm during the exam. Left Ventricle: The left ventricle is normal in size and wall thickness. There is no ventricular septal defect visualized. The ejection fraction is estimated to be 45-50%. There is anterolateral wall severe hypokinesis. There is mid anteroseptal wall severe hypokinesis. There are no other obvious focal wall motion abnormalities. Right Ventricle: The right ventricle is borderline dilated. The right ventricular systolic function is normal. Atria: Both atria are normal in size. There is no Doppler evidence for an interatrial shunt. Mitral Valve: The mitral valve leaflets appear normal. There is no evidence of stenosis, fluttering, or prol apse. There is no mitral valve stenosis. There is mild mitral regurgitation. Aortic Valve: The aortic valve is trileaflet. The aortic valve opens well. There is no aortic valve stenosis. There is trace aortic regurgitation. Tricuspid Valve: The tricuspid valve is normal. There is trace tricuspid regurgitation. The right ventricular systolic pressure is estimated to be at least 19 mmHg based on anestimated right atrial pressure of 3 mm Hg. Pulmonic Valve: The pulmonic valve leaflets are thin and pliable; valve motion is normal. There is a trace or physiologic amount of pulmonic regurgitation.Great Vessels: The aortic root is mildly dilated. The ascending aorta is moderately enlarged. The aortic arch is mildly enlarged. The pulmonary artery is normal size. The IVC is of normal diameter and collapses greater than 50% with a sniff. This suggests a low right atrial pressure of 3 mm Hg. Pericardium/ Pleura There is no pericardial effusion. There is no pleural effusion. MMode/2D Measurements & Calculations LVIDd: 4.8 cm AoV Openin.7 cm LVIDs: 3.8 cm LVOT diam: 2.7 cm IVSd: 1.1 cm Ao root diam: 3.9 cm LVPWd: 0.98 cm asc Aorta Diam: 4.1 cm LV dickson. diameter/BSA (cm/m^2): 2.1 LVsys. diameter/BSA (cm/m^2): 1.6 FS: 21.4 % EPSS: 0.48 cm LA A2 area: 16.8 cm2 RA long axis: 5.2 cm LA A4 area: 18.1 cm2 RA area: 14.0 cm2 LA length (vol): 4.7 cm RA vol: 32.3 ml LA vol: 55.0 ml RA : 13.9 ml/m2 LA vol index: 23.7 ml/m2 TAPSE: 2.1 cm IVC diam: 1.6 cm Doppler Measurements & Calculations Ao V2 max: 86.2 cm/sec LVOT Max Markus: 79.1 cm/sec Ao V2 mean: 65.6 cm/sec LV V1 max P.5 mmHg Ao V2 VTI: 19.3 cm LV V1 VTI: 14.4 cm Ao max P.0 mmHg Ao mean P.8 mmHg ZACH(I,D): 4.1 cm2 MV E max markus: 44.5 cm/sec ZACH(V,D): 5.1 cm2 MV A max markus: 69.3 cm/sec ZACH indexed to BSA (cm^2/m^2): 1.8 MV E/A: 0.64 sev ratio: 0.74 Med Peak E' Markus: 5.0 cm/sec E/E' med: 8.9 Lat Peak E' Markus: 6.2 cm/sec E/E' lat: 7.2 E/e' average: 8.1 MV dec time: 0.26 sec TR max markus: 202.5 cm/sec MV mean P.48 mmHg TR max P.4 mmHg MVA(VTI): 5.1 cm2 Pulm A Revs Markus: 28.1 cm/sec MV V2 mean: 30.6 cm/sec MV V2 VTI: 15.6 cm SV(LVOT): 80.0 ml Electronically signed by: Lonny Candelario on Reading Physician:04/16/2023 10:27 AM SI LEFT HEART CATH Result Date: 04/14/2023 Narrative: Cardiac Cath Report Date of Service 04/14/23 PATIENT PROFILE: The patient is a 73 y.o. male who presented with NSTEMI, high risk. PROCEDURE: 1. Moderate sedation for 52 minutes. 2. Retrograde left heart catheterization. 3. Selective coronary angiogram. 4. Balloon angioplasty and stentingto the 2nd diagonal branch VASCULAR CLOSURE DEVICE: StarClose. COMPLICATIONS: None. METHOD: Moderate sedation was achieved with IV Versed and IV fentanyl under my direct supervision for 52 minutes. Retrograde left heart catheterization was performed from the right groin under 1% lidocaine local anesthesia using a 6-Zimbabwean sheath. Selective coronary angiogram was performed in multiple projections by using JL4 and JR4 catheters. Heparin 100 units/kg and Prasugrel 60 mg were given. A 6-Zimbabwean JL4 guide was advanced to the left coronary ostium. A Runthrough wire was placed inside the second diagonal branch. The lesion was pre-dilated with a 2.5 x 15 mm balloon. A Xience 2.75 x 18 mm stent was placed inside the lesion and deployed at 12 atmospheres for 20 seconds. A 3.0 x 8 mm balloon was usedfor post stent deployment dilation in the proximal portion of the stent. Final angiogram was obtained. Following sheath removal, hemostasis was achieved by using Starclose device. He was transferred to CCU in good condition. TOTAL CONTRAST USED: 70 cc. FLUOROSCOPY TIME: 4.8 minutes. TOTAL RADIATIONDOSE: 536 mGy. RESULTS: 1. Selective coronary angiogram: a. Left main coronary artery is short and normal. b. The left anterior descending artery is transapical and has 40% proximal stenosis. The first diagonal branch is large and has 30% proximal stenosis. The second diagonal branch is occluded atits origin. c. The circumflex artery has minor ectasia with 10% stenosis. d. The dominant right coronary artery has minor 10 to 20% stenosis. 2. Balloon angioplasty and stenting was performed to the occluded second diagonal branch lesion by deploying 1 drug-eluting stent (2.75 x 18 mm) to achieve an excellent angiographic result with GISELA-3 flow distally. 3. There is no gradient across the aorticvalve on catheter withdrawal. 5. Aortic pressure is 114/57 mmHg. Left ventricular pressure is 114/16 mmHg. 6. Left ventricular end-diastolic pressure is 46 mmHg. CONCLUSION: 1. Occluded second lateral branch. 2. This was successfully treated with 1 drug-eluting stent. PRE: 100% stenosis with GISELA 0 POST: 0% stenosis with GISELA 3 3. 40% proximal left interesting artery stenosis 4. Left ventricular end-diastolic pressure is 46 mmHg. Lonny Fried MD XR CHEST 1 VIEW Result Date: 04/14/2023 Narrative: [place] [address] PATIENT NAME: HELADIO ROBERTSONB: 1950 GENDER: Jennifer EXAM DATE: 04/14/2023 19:50 ORDERED FROM: [facility] ORDERING PHYSICIAN: LAUREN DE LEON CC: -- - - - CONTRAST: READING STATION ID: [id number] mGy: PROCEDURE: XR CHEST 1 VIEW INDICATIONS: chest pain TECHNIQUE: One view ofthe chest was acquired. COMPARISON: None. FINDINGS: Surgical changes and devices: None. Lungs and pleura: Lungs are clear. No pleural effusions or pneumothorax. Mediastinum: Mediastinal contours appear normal. Heart size is normal. Bones and chest wall: No suspicious bony lesions. Overlying soft tissues appear unremarkable. IMPRESSION: Portable chest within normal limits for age. Approved by: Viktor Rudd M.D. on 04/14/2023 at 19:14 Activity Usual activity as tolerated. Functional status prior to admission: Functional status : Ambulatory Functional expectation at discharge : Functional status : Ambulatory Advanced Care Planning Code Status: Full Code Electronically signed by: Anabelle Devlin MD 04/16/2023 2:05 PM Note: Initial certification and orders must be signed and dated by attending physicians. The home health orders portion of the form for resumption of care or an update to the initial certification can be completed by any provider. Portions of today's documentation have been created with the assistance of voice recognition software. Therefore, it may contain anomalous punctuation, anomalous independent misrecognitions, word substitutions, insertions or omissions. Occasional wrong-word or phonetically similar substitutions mayalso occur, all due to the inherent limitations of voice recognition software. Attempts to correct the above have been made by Anabelle Devlin MD but it is recommended that the chart be read carefully to recognize, using context, where the substitutions may have occurred. Allergies Allergies Allergen Reactions Tree Nuts Anaphylaxis This discharge summary has been routed to Hector Aguirre MD via Liquid [employer] message or fax. Readmission Prevention: Has the discharge teach-back been completed: Yes Has a PCP appt been ordered post hospitalization 6 days after DC? Yes Has this been communicated with the PCP by the time the DC has taken place? N/A I spent 60 minutes in preparation of discharge for Javi Robertson. Greater than 50% of that time wasdedicated to patient counseling and coordination of care. Thank you for allowing me to participate in the care of Javi Robertson. Electronically signed by: Anabelle Devlin MD 04/16/2023 2:05 PM Portions of today's documentation have been created with the assistance of voice recognition software. Therefore, it may contain anomalous punctuation, anomalous independent misrecognitions, word substitutions, insertions or omissions. Occasional wrong-word or phonetically similar substitutions mayalso occur, all due to the inherent limitations of voice recognition software. Attempts to correct the above have been made by Anabelle Devlin MD but it is recommended that the chart be read carefully to recognize, using context, where the substitutions may have occurred. Associated attestation - Ethan Riley DO - 04/16/2023 5:54 PM PDT I saw the patient on the day of discharge and agree with the discharge plans and disposition as recorded by the resident. I personally spent over 30 minutes in the discharge planning process. documented in this encounter Discharge Instructions * Discharge Instructions* Anabelle Devlin MD - 04/16/2023 1:38 PM PDT Physician's Instructions Dear Javi Robertson, Thank you for allowing us to be a part of your care. You were admitted for evaluation and management of chest pain. You have underwent cardiac catheterization with placement of a drug-eluting stent. It is a procedure went up by as injected inside your cardiac vessels to visualize any blockages or ob structions. A stent is a tiny tube that is placed inside one of your vessels to make them patent again. We are also starting you on several medications to help your heart recover and reduce the risk of future cardiovascular events. Please start taking Plavix 75 mg daily with aspirin 81 mg daily. These are antiplatelet medications. Please continue taking Plavix for 1 year from now, continue taking aspirin indefinitely. Please continue taking metoprolol 12.5 mg twice daily, spironolactone 25 mg daily and lisinopril 5 mg daily. These medications will help with blood pressure management and will also reduce the strainon the heart and help it recover. Please see additional recommendations from the cardiology team regarding these medications below. Please continue taking rosuvastatin 20 mg daily to reduce the cholesterol burden and prevent plaqueformation in your vessels. Please adhere to a heart healthy diet, restrict your sodium intake to 2 grams daily. Follow-up with cardiology and your primary care provider. Please read and review the attached instructions as it lists what medications you should be taking & when. It also indicates when your next appointments are. Please follow-up with your primary care doctor in 1-2 weeks for a hospital follow-up visit. If your scheduled PCP appointment is not listed in this paperwork, then please call and make an appointment within 1-2 weeks. I will forward over a copy of your hospital records to them. *Please go to the emergency department for any new or worsening symptoms including any non-stop nausea or vomiting, new or worsening abdominal pain, new or worsening headache, new vision changes, newor worsening shortness of breath, new or worsening chest pain, one-sided weakness or numbness, fevers greater than 101.4??F, chills, or if there's anything else of concern to you. It was a pleasure treating you and I wish you the best. Anabelle Devlin MD Please see additional instructions from the cardiology team below: You have had a procedure to open the arteries in your heart. During this procedure, a catheter is inserted through your groin and guided to your heart. A balloon is used to expand the vessels that have blockages, and then a stent is placed. Wound Care - Okay to remove dressing the day after procedure and shower. Use warm water, mild soap, and pat dry - Dressing can be left off or a bandage placed over the site if there is some fluid coming out - [place]/clear fluid and small amounts of blood are normal, please call the office for pus draining from the site or hold pressure and call 911 for bleeding from the site that cannot be controlled - Keep the incision clean and dry, do not use lotions, creams, or ointments - No sitting or soaking in pools, hot tubs, or bathtubs for 7 days General Care - No lifting, pushing, or pulling anything heavier than 10 pounds for 7 days - Do not perform activities that are strenuous or require you to strain for one week - Gradually increase your activity until you reach your prior activity level - You will discuss cardiac rehabilitation at your follow up appointment - Please follow a heart healthy diet Medications - Please continue to take your aspirin and statin medication lifelong - Please continue to take your clopidogrel (Plavix) for 1 year. - Please check your blood pressure and heart rate prior to taking metoprolol, lisinopril, and spironolactone. If your systolic blood pressure (top number) is less than 100 please call the final fin[facility] for[facility] dies's office to advise before taking medications. If your heart rate is less than 55 beats per minute,please hold the metoprolol. Please call your [facility]'s office for: - Pus, redness, warmth, or unusual drainage coming from your procedure site - A hard lump or bump under your procedure site Please call 911 for: - Difficulty breathing/shortness of breath - Bleeding from the procedure site that cannot be controlled - Any sudden or severe chest pain - Loss of sensation in your to your (hand/leg) A referral has been placed for [facility] in [place]. You will follow up with your provider in 2-3 weeks. Sooner for any new concerns. If you do not hear from the clinic regarding scheduling within about a week, please call the [facility] to follow up on your referral. [address] [place] [address], [address] [place] [address] * Appointments* Alis Mulligan CNA - 04/16/2023 10:28 AM PDT Follow up appointment with Dr Dinh #[phone] on SunApr 23 at 1030 am (check in 1015 am) Dr Aguirre Booked out into middle of May * Attachments The following attachments cannot be sent through Care Everywhere. * Heart Healthy Diet (Dominican) * Spironolactone, ADULT (Dominican) * Rosuvastatin, ADULT (Dominican) * Metoprolol, ADULT (Dominican) * Lisinopril, ADULT (Dominican) * Clopidogrel, ADULT (Dominican) * Going Home on Blood Thinners (Dominican) * Aspirin, ADULT (Dominican) documented in this encounter Medications at Time of Discharge Medication Sig Dispensed Refills Start Date End Date acetaminophen (TYLENOL) 325 mg tablet Take 325 mg by mouth as needed for mild pain 0 aspirin 81 mg chewable tablet Take 1 tablet (81 mg total) by mouth daily 30 tablet 11 04/17/2023 04/16/2024 clopidogreL (PLAVIX) 75 mg tablet Take 1 tablet (75 mg total) by mouth daily 30 tablet 11 04/17/2023 04/16/2024 lisinopriL (PRINIVIL) 5 mg tablet Take 1 tablet (5 mg total) by mouth daily 30 tablet 11 04/17/2023 04/16/2024 metoprolol tartrate (LOPRESSOR) 25 mg tablet Take 0.5 tablets (12.5 mg total) by mouth 2 (two) times a day 30 tablet 11 04/16/2023 04/15/2024 rosuvastatin (CRESTOR) 20 mg tablet Take 1 tablet (20 mg total) by mouth nightly 30 tablet 11 04/16/2023 04/15/2024 tamsulosin (FLOMAX) 0.4 mg capsule Take 1 capsule (0.4 mg total) by mouth daily 0 09/01/2021 spironolactone (ALDACTONE) 25 mg tablet Take 1 tablet (25 mg total) by mouth daily 30 tablet 11 04/17/2023 04/18/2023 documented as of this encounter Progress Notes * Willi Sifuentes MD - 04/16/2023 9:38 AM PDT Patient Name: Javi Robertson Date of : 1950 Date of Admission: 04/14/2023 Date of Follow Up: 04/16/2023 Code Status: Full Code INTERVAL HISTORY: - s/p MARIBETH x1 to second diagonal branch 04/14/2023 - AF VSN on RA with exception of occasional bradycardia to high 50s - No CP/other cardiac symptoms - R femoral acces site without complcations Current Medications: Scheduled Meds:aspirin, 81 mg, oral, Daily carvediloL, 3.125 mg, oral, BID with meals clopidogreL, 75 mg, oral, Daily heparin (porcine), 5,000 Units, subcutaneous, q8h AURELIA lisinopriL, 5 mg, oral, Daily magnesium oxide, 400 mg, oral, Daily [Held by provider] potassium chloride, 40 mEq, oral, TID rosuvastatin, 20 mg, oral, Nightly spironolactone, 25 mg, oral, Daily Continuous Infusions: PRN Meds:??? acetaminophen ??? atropine ??? flumazeniL ??? Insert peripheral IV AND lidocaine AND Maintain IV access AND Saline lock IV AND sodium chloride ??? melatonin ??? naloxone ??? naloxone ??? ondansetron ODT OR ondansetron ??? polyethylene glycol ??? senna Physical Examination: Most Recent Vital Signs: Temp Av.8 ??C (98.3 ??F) Min: 36.7 ??C (98 ??F) Max: 36.9 ??C (98.4 ??F) BP: 117/73 Heart Rate: 63 Resp: 20 SpO2: 97 % on O2 Flow Rate (L/min): 2 L/min Oxygen: SpO2: 97 % on RA No intake/output data recorded. I/O's (24 hours): Intake/Output Summary (Last 24 hours) at 04/16/2023 0928 Last data filed at 04/16/2023 0435 Gross per 24 hour Intake 300 ml Output -- Net 300 ml Admission Weight: Weight: 104 kg Current weight: Weight: 111 kg Physical Exam Vitals and nursing note reviewed. Constitutional: General: He is not in acute distress. Appearance: Normal appearance. HENT: Head: Normocephalic and atraumatic. Eyes: Pupils: Pupils are equal, round, and reactive to light. Cardiovascular: Rate and Rhythm: Normal rate and regular rhythm. Heart sounds: No murmur heard. Comments: R DP and PT pulse palpable Pulmonary: Effort: Pulmonary effort is normal. No respiratory distress. Breath sounds: Normal breath sounds. Abdominal: General: There is no distension. Palpations: Abdomen is soft. Tenderness: There is no abdominal tenderness. Musculoskeletal: General: Normal range of motion. Skin: General: Skin is warm and dry. Capillary Refill: Capillary refill takes less than 2 seconds. Comments: R femoral access site w/ scant ecchymosis, soft, no hematoma. Non-tender Neurological: General: No focal deficit present. Mental Status: He is alert and oriented to person, place, and time. Psychiatric: Mood and Affect: Mood normal. Behavior: Behavior normal. STUDIES: Labs & ECG Hematology Results from last 7 days Lab Units 04/16/23 0443 04/15/2360504/14/231947 WBC AUTO x10e3/uL 7.8 8.5 10.5* HEMOGLOBIN g/dL 14.2 14.4 15.1 HEMATOCRIT % 42.7 44.1 43.2 MCV fL 94 96 90 PLATELETS AUTO x10e3/uL 182 185 245 Coagulation Studies Results from last 7 days Lab Units 04/14/231947 INR 1.0 Chemistries Results from last 7 days Lab Units 04/15/2360504/14/231947 SODIUM mmol/L 138 141 POTASSIUM mmol/L 5.2 3.1* CHLORIDE mmol/L 109* 108* CO2 mmol/L 22 20* BUN mg/dL 15.4 19.1 CREATININE mg/dL 0.80 1.00 CALCIUM, SERUM mg/dL 8.1* 8.7 MAGNESIUM mg/dL 1.9 -- AST U/L -- 34 ALT U/L -- 23 BILIRUBIN TOTAL mg/dL -- 0.4 ALBUMIN g/dL -- 4.0 TOTAL PROTEIN g/dL -- 7.5 Estimated Creatinine Clearance: 83.4 mL/min (by C-G formula based on SCr of 0.8 mg/dL). Cardiac Enzymes Results from last 7 days Lab Units 04/16/23 0444 04/15/23 2325 04/15/23 1802 04/15/23 1418 04/15/23 0606 04/14/23 2346 04/14/23 1948 04/14/23 1948 CKTOTAL U/L 580* 721* 928* 1,114* 2,114* 2,361* < > -- CKMB ng/mL 18.2* 29.9* 53.2* 67.5* 138.0* 137.0* < > -- TROPONIN I ng/mL -- -- -- 39.300* 69.300* >80.000 -- 0.309* PROBNP pg/mL -- -- -- -- -- -- -- 50 < > = values in this interval not displayed. Lipid Profile Results from last 7 days Lab Units 04/15/23 0606 CHOLESTEROL mg/dL 144 HDL mg/dL 37* LDL CALCULATED mg/dL 85 VLDL CHOLESTEROL mg/dL 22 TRIGLYCERIDES mg/dL 112 Arterial Blood Gases No lab exists for component: ABGFIO2, [id number] ACCUCHECK No results found for: POCGLU MISC LABS Results from last 7 days Lab Units 04/14/23 2017 TSH uIU/mL 7.050* MICROBIOLOGY No lab exists for component: MRSAPCR, CDIFFPCR ECG 04/15/2023 SR Telemetry: SR 60s Echocardiogram Complete 04/16/2023 Interpretation Summary Normal left ventricle size with ejection fraction 45-50%. Severe hypokinesis of anterolateral wall and mid anterior septum. Borderline dilated right ventricle with normal right ventricular systolic function. Mild mitral regurgitation. The ascending aorta is moderately enlarged. The aortic arch is mildly enlarged. SI Left Heart Cath 04/14/2023 RESULTS: 1. Selective coronary angiogram: a. Left main coronary artery is short and normal. b. The left anterior descending artery is transapical and has 40% proximal stenosis. The first diagonal branch is large and has 30% proximal stenosis. The second diagonal branch is occluded at its origin. c. The circumflex artery has minor ectasia with 10% stenosis. d. The dominant right coronary artery has minor 10 to 20% stenosis. 2. Balloon angioplasty and stenting was performed to the occluded second diagonal branch lesion by deploying 1 drug-eluting stent (2.75 x 18 mm) to achieve an excellent angiographic result with GISELA-3 flow distally. 3. There is no gradient across the aortic valve on catheter withdrawal. 5. Aortic pressure is 114/57 mmHg. Left ventricular pressure is 114/16 mmHg. 6. Left ventricular end-diastolic pressure is 46 mmHg. CONCLUSION: 1. Occluded second lateral branch. 2. This was successfully treated with 1 drug-eluting stent. PRE: 100% stenosis with GISELA 0 POST: 0% stenosis with GISELA 3 3. 40% proximal left interesting artery stenosis 4. Left ventricular end-diastolic pressure is 46 mmHg. IMPRESSION AND RECOMMENDATIONS: 73 y.o. year old male who is now on Hospital Day: 3 after being admitted for evaluation of chest pain. Now s/p MARIBETH x1 to second diagonal branch on 04/14/2023. #NSTEMI. - Continue ASA 81mg daily indefinitely - Continue Plavix 75mg daily 1 year - Continue Rosuvastatin, - Change Coreg to metoprolol tartrate 12.5mg BID. If patient tolerates this BB dose, then switch toToprol xl 25mg po once daily. - Continue lisinopril, and spironolactone (Unclear why patient was started on Spironolactone). LVEFis borderline normal. Would recommend maximizing Lisinopril before adding addtional antihypertensives. - Outpatient cardiology followup. #HLD LDL 85, HDL 37 04/15/2023 - Continue rosuvastatin 04/16/2023 9:38 AM * Devi Ballesteros MD - 04/15/2023 6:18 PM PDT Subjective Patient ID: Javi Robertson is a 73 y.o. male that presents today for Chief Complaint Patient presents with ??? Chest Pain HPI: 73 M came with hl and h/o PE came in with CP with diffuse ST depression. Per report from medics, the patient has been experiencing mild intermittent chest pains over the past couple of days that suddenly became significantly worse at about 18:45 on 04/14/2023 when he also became diaphoretic and began experiencing pain radiating up into his jaw. He has no known cardiac history; however, his motherdied of a heart attack at the same age. Denies any abdominal pain or pain radiating into back. While en route to the Emergency Department, medics administered ASA 324 mg and three doses of nitroglycerin. Cath- occluded 2nd diagonal br. Got 1 MARIBETH. Stable. He is hypo K with K 3.1. troponin I peaked at over 80 ng per mill on admission. Right now laying flat in bed, feels fine, no complaints. Past Medical History: Diagnosis Date ??? Arthritis ??? High cholesterol ??? Hx of blood clots ??? Prostate enlargement ??? Sleep apnea Past Surgical History: Procedure Laterality Date ??? PARTIAL KNEE ARTHROPLASTY Right 2009 ??? SHOULDER SURGERY Right 1999 ??? TOTAL KNEE ARTHROPLASTY Left 2021 Allergies Allergen Reactions ??? Tree Nuts Anaphylaxis Current Medication List Sig acetaminophen (TYLENOL) 325 mg tablet Take 325 mg by mouth as needed for mild pain Eliquis 5 mg tablet TAKE TWO TABLETS BY MOUTH TWICE DAILY FOR 7 DAYS THEN ONE TABLET BY MOUTH TWICEDAILY AFTER naproxen (NAPROSYN) 375 mg tablet Take 400 mg by mouth 2 (two) times a day with meals pseudoephedrine (SUDAFED) 30 mg tablet Take 30 mg by mouth every 4 (four) hours as needed for congestion rosuvastatin (CRESTOR) 10 mg tablet Take 1 tablet (10 mg total) by mouth daily tamsulosin (FLOMAX) 0.4 mg capsule Take 1 capsule (0.4 mg total) by mouth daily Facility-Administered Medications Sig acetaminophen (TYLENOL) tablet 650 mg 650 mg, oral, Every 4 hours PRN, total Acetaminophen dose from ALL sources including combination products should not exceed 4,000 mg in a 24 hour period. Can be given concurrently with ibuprofen. amiodarone (CORDARONE) 50 mg/mL injection - ADS Override Pull (Completed) Created by david override aspirin chewable tablet 81 mg 81 mg, oral, Daily atropine 0.1 mg/mL injection (abboject) - ADS Override Pull (Completed) Created by jeanainet override atropine injection (abboject) 1 mg 1 mg, intravenous, Every 5 min PRN, Repeat as directed. carvediloL (COREG) tablet 3.125 mg 3.125 mg, oral, 2 times daily with meals, Hold for heart rate less than 45 or 1st degree AV Block, SBP less than 90, or symptomatic wheezing.
Notify Provider if drug held. clopidogreL (PLAVIX) tablet 75 mg 75 mg, oral, Daily fentaNYL (SUBLIMAZE) 50 mcg/mL injection - ADS Override Pull (Completed) Created by cabinet override fentaNYL (SUBLIMAZE) injection (Completed) intravenous, As needed flumazeniL (ROMAZICON) injection 0.2 mg 0.2 mg, intravenous, As needed, every 20 min prn for suspected benzodiazepine overdose furosemide (LASIX) injection 20 mg (Completed) 20 mg, intravenous, Once heparin (porcine) 1,000 unit/mL injection - ADS Override Pull (Completed) Created by cabinet override heparin (porcine) in NaCl (PF) 1,000 unit/500 mL infusion - ADS Override Pull (Completed) Created by cabinet override heparin (porcine) injection 5,000 Units (Completed) 5,000 Units, intravenous, Once heparin (porcine) injection 5,000 Units 5,000 Units, subcutaneous, Every 8 hours scheduled heparin (porcine) injection (Completed) intravenous, As needed iopamidoL (ISOVUE-370) 370 mg iodine /mL (76 %) injection (Completed) As needed lidocaine (XYLOCAINE) 10 mg/mL (1 %) injection 1 mL 1 mL, infiltration, Once as needed Linked Group 1: See Hyperspace for full Linked Orders Report. lisinopriL (PRINIVIL) tablet 5 mg 5 mg, oral, Daily magnesium oxide (MAG-OX) tablet 400 mg 400 mg, oral, Daily midazolam (VERSED) 1 mg/mL injection - ADS Override Pull (Completed) Created by cabinet override midazolam (VERSED) injection (Completed) intravenous, As needed morphine injection 4 mg (Completed) 4 mg, intravenous, Once naloxone (NARCAN) injection 0.04 mg 0.04 mg, intravenous, As needed, Every 1 Minute PRN For Opiate Reversal
1. Draw up 0.4 mg (1 mL) in 10 mL syringe, and dilute with 9 mL of saline for an naloxone concentration of 0.04 mg/mL.
2. Give 0.04 mg (1 mL) IV push flushing solution into vein and repeat every min until resp rate greater than 10 per min and level of sedation improved.&l t;BR>3. Notify Provider STAT. naloxone (NARCAN) injection 0.4 mg 0.4 mg, intravenous, As needed ondansetron (ZOFRAN) injection - ADS Override Pull (Completed) Created by gent override ondansetron (ZOFRAN) injection 4 mg 4 mg, intravenous, Every 8 hours PRN, 1st line antiemetic
*Give IV if UNABLE to take orally. Linked Group 2: See Hyperspace for full Linked Orders Report. ondansetron (ZOFRAN) injection (Completed) intravenous, As needed ondansetron ODT (ZOFRAN-ODT) disintegrating tablet 4 mg 4 mg, oral, Every 8 hours PRN, 1st line antiemetic
* Use first if patient ABLE to take PO meds Linked Group 2: See Hyperspace for full Linked Orders Report. phenylephrine in sodium chloride 0.9 % 1 mg/10 mL (100 mcg/mL) injection - ADS Override Pull (Completed) Created by cabinet override polyethylene glycol (GLYCOLAX) packet 17 g 17 g, oral, Daily PRN, Initiate on hospital day 2 if patient hasn't had bowel movement. Continue with ambulation and fluids.
hold for loosestool. potassium chloride (KLOR-CON M20) CR tablet 40 mEq ([Held by provider] since 04/15/2023 7:45 AM) 40mEq, oral, 3 times daily prasugreL (EFFIENT) 10 mg tablet - ADS Override Pull (Completed) Created by gent override prasugreL (EFFIENT) tablet (Completed) oral, As needed rosuvastatin (CRESTOR) tablet 20 mg 20 mg, oral, Nightly senna (SENOKOT) tablet 8.6 mg 8.6 mg, oral, 2 times daily PRN, Initiate on hospital day 2 if patient hasn't had bowel movement. Continue with ambulation and fluids.
hold for loose stools. sodium chloride (NS) 0.9 % infusion () 50 mL/hr (50 mL/hr), intravenous, Continuous @ 50 mL/hr, then saline lock until patient ready for discharge. sodium chloride 0.9 % flush 10 mL 10 mL, intravenous, As needed Linked Group 1: See Hyperspace for full Linked Orders Report. spironolactone (ALDACTONE) tablet 25 mg 25 mg, oral, Daily heparin 25,000 units in 500 mL 0.45% NS (premix) (Discontinued) 1,000 Units/hr (1,000 Units/hr), intravenous, Titrated @ 20 mL/hr BP 115/66 (BP Location: Left arm, Patient Position: Lying) Pulse 64 Temp 36.7 ??C (98 ??F) (Oral) Resp 16 Ht 1.829 m Wt 111 kg SpO2 94% BMI 33.22 kg/m?? Intake/Output Summary (Last 24 hours) at 04/15/2023 1818 Last data filed at 04/15/2023 0600 Gross per 24 hour Intake 400 ml Output 600 ml Net -200 ml Physical Exam Constitutional WN WD in NAD Mouth/Throat No thrush Eyes No scleral icterus Neck Supple no lymphadenopathy and no carotid bruit Cardiovascular Normal s1 and s2, no m/r/g Pulmonary/Chest cta anteriorly Abdominal Soft + bs no HSM Musculoskeletal No obvious musculoskeletal abnormalities Vascular Intact radial pulses, carotid pulses Neurological No apparent focal neurologic findings Skin No rashes or lesions Patient Active Problem List Diagnosis ??? Non-ST elevation (NSTEMI) myocardial infarction ([facility]) LABORATORY AND RADIOLOGY REVIEW Results from last 7 days Lab Units 04/15/23 0604/14/231947 WBC AUTO x10e3/uL 8.5 10.5* HEMOGLOBIN g/dL 14.4 15.1 HEMATOCRIT % 44.1 43.2 PLATELETS AUTO x10e3/uL 185 245 Results from last 7 days Lab Units 04/15/23 0606 04/14/231947 SODIUM mmol/L 138 141 POTASSIUM mmol/L 5.2 3.1* CHLORIDE mmol/L 109* 108* CO2 mmol/L 22 20* BUN mg/dL 15.4 19.1 CREATININE mg/dL 0.80 1.00 GLUCOSE mg/dL 113* 126* MAGNESIUM mg/dL 1.9 -- Results from last 7 days Lab Units 04/14/231947 BILIRUBIN TOTAL mg/dL 0.4 Results from last 7 days Lab Units 04/14/231947 INR 1.0 Results from last 7 days Lab Units 04/15/23 1418 04/15/23 0606 04/14/23 2346 TROPONIN I ng/mL 39.300* 69.300* >80.000 Assessment/Plan Assessment/Plan Comments: I personally reviewed his cath. Diagonal was occluded. Angiographic result is excellent. Otherwise no significant disease. There is a question of why his troponin leak was out of proportion to the atherosclerotic disease severity. It could be that he also had transient LAD occlusion due to thrombusthat reperfused spontaneously prior to cath films being obtained. Either way, he is asymptomatic atthis time. Obtain echo and discharge home after 48 hours of monitoring. Electronically signed by Devi Ballesteros MD 04/15/2023 6:18 PM * Anabelle Devlin MD - 04/15/2023 1:05 PM PDT HOSPITALISTNOTESLIST: [facility]: INPATIENT PROGRESS NOTE Patient Name: Javi Robertson Date of : 1950 Age: 73 y.o. Code Status: Full Code Primary Care Physician: Hector Aguirre MD Admitting Provider: Lonny Fried MD Attending Provider: Ethan Riley DO Admit Date: 04/14/2023 Hospital Day: 1 [facility] ASSESSMENT & PLAN Javi Robertson is a 73 y.o. male with past medical history of hypertension, hyperlipidemia, pulmonary embolism and obstructive sleep apnea presented to the ED for evaluation and management of chest pain. Carried forward daily. Clinical Overview of hospital course: Patient presented with complaints of chest pain radiating to the jaw, noted to have diffuse ST depressions in lateral leads on EKG, elevated troponin. Started onheparin drip, then underwent cardiac catheterization with 1 MARIBETH placement. Plan: -Continue aspirin, Plavix, Coreg, lisinopril, spironolactone, rosuvastatin -Continue telemetry monitoring -Continue trending troponin -Follow-up on ECHO results Active medical problems (all reviewed 04/15/23), present on admission: NSTEMI, present on admission, active -Patient presented with complaints of pressure-like chest pain which was radiating to the jaw -Troponin elevated at 0.309 initially -EKG showing diffuse ST depressions and leads II, 3, aVF, V4 through V6 -Initially was started on heparin drip in the emergency department -Cardiology consulted, patient subsequently underwent cardiac catheterization on 04/14, was noted to have 100% stenosis of second lateral branch, underwent placement of 1 drug-eluting stent, access through right femoral artery, site without bleeding, nontender, not erythematous -Continue aspirin, Plavix, Coreg, lisinopril, spironolactone and rosuvastatin -Continue telemetry monitoring -Continue trending troponins -ECHO results pending Hypokalemia, present on admission, resolved -Initially potassium 3.1, improved to 5.2 -Continue monitoring BMP -Replete potassium as indicated Subclinical hypothyroidism, present on admission, active -Noted to have elevated TSH at 7.050 -We will check T3 and T4 -Consider thyroid ultrasound as outpatient History of pulmonary embolism, present on admission, chronic -Patient has a history of pulmonary embolism, which was provoked, happened after patient underwent a total knee arthroplasty in August 2021 -He was then placed on Eliquis for a total course of 6 months, which he has completed -He is currently not anticoagulated Chronic medical problems (all reviewed 04/15/23 ), present on admission: -Hyperlipidemia: Continue rosuvastatin -BPH: Continue Flomax Current anders indication: No ANDERS VTE Prophylaxis: heparin subcutaneous Code Status: Full code Barriers to discharge: None Disposition: Anticipate discharge to : Home within 1 days Functional status : Ambulatory SUBJECTIVE Chief Complaint Patient presents with Chest Pain Patient's Update Patient was seen and evaluated bedside. Patient reports feeling well today, does not express any acute complaints, however mentions still having mild chest pain, which he rates at about 1-2/10. His access site in the right groin is not erythematous, swollen or tender. Denies shortness of breath, palpitations, headaches, nausea, vomiting, diarrhea, constipation, abdominal discomfort, urinary frequency, urgency or pain with urination. Plan of care was discussed with patient and questions were solicited and answered in a satisfactorymanner. Interval Update: Interval history : Stable All nursing notes, labs and pertinent imaging reviewed. No other issues upon chart review. OBJECTIVE First recorded vitals: Temp: 36.7 ??C (98 ??F) - BP: 120/76 - Heart Rate: 69 - Resp: 24 - SpO2: 98 % O2 Flow Rate (L/min):2 L/min Most recent vitals: Temp: 36.9 ??C (98.4 ??F) - BP: 124/71 - Heart Rate: 61 - Resp: 16 - SpO2: 97 % O2 Flow Rate (L/min): 2 L/min Physical Exam Constitutional: General: He is not in acute distress. Appearance: Normal appearance. HENT: Head: Normocephalic and atraumatic. Mouth/Throat: Pharynx: Oropharynx is clear. Eyes: Extraocular Movements: Extraocular movements intact. Pupils: Pupils are equal, round, and reactive to light. Cardiovascular: Rate and Rhythm: Normal rate and regular rhythm. Heart sounds: Normal heart sounds. No murmur heard. Comments: S1 splitting Pulmonary: Effort: No respiratory distress. Breath sounds: No wheezing. Abdominal: Palpations: Abdomen is soft. Tenderness: There is no abdominal tenderness. Musculoskeletal: General: Normal range of motion. Cervical back: Neck supple. Right lower leg: No edema. Left lower leg: No edema. Skin: General: Skin is warm. Capillary Refill: Capillary refill takes less than 2 seconds. Findings: Lesion (Cardiac catheterization access site in right groin, nonerythematous, nonswollen, nontender) present. Neurological: General: No focal deficit present. Mental Status: He is alert and oriented to person, place, and time. Cranial Nerves: No cranial nerve deficit. Psychiatric: Mood and Affect: Mood normal. Behavior: Behavior normal. Scheduled Hospital Meds: aspirin, 81 mg, oral, Daily carvediloL, 3.125 mg, oral, BID with meals clopidogreL, 75 mg, oral, Daily heparin (porcine), 5,000 Units, subcutaneous, q8h AURELIA lisinopriL, 5 mg, oral, Daily [Held by provider] potassium chloride, 40 mEq, oral, TID rosuvastatin, 20 mg, oral, Nightly spironolactone, 25 mg, oral, Daily LABS & DIAGNOSTICS Hematology Results from last 7 days Lab Units 04/15/23 0604/14/23 1948 WBC AUTO x10e3/uL 8.5 10.5* HEMOGLOBIN g/dL 14.4 15.1 HEMATOCRIT % 44.1 43.2 MCV fL 96 90 PLATELETS AUTO x10e3/uL 185 245 Chemistry Results from last 7 days Lab Units 04/15/23 0623 1948 SODIUM mmol/L 138 141 POTASSIUM mmol/L 5.2 3.1* CHLORIDE mmol/L 109* 108* CO2 mmol/L 22 20* BUN mg/dL 15.4 19.1 CREATININE mg/dL 0.80 1.00 GLUCOSE mg/dL 113* 126* CALCIUM, SERUM mg/dL 8.1* 8.7 MAGNESIUM mg/dL 1.9 -- AST U/L -- 34 ALT U/L -- 23 BILIRUBIN TOTAL mg/dL -- 0.4 ALBUMIN g/dL -- 4.0 TOTAL PROTEIN g/dL -- 7.5 Estimated Creatinine Clearance: 83.4 mL/min (by C-G formula based on SCr of 0.8 mg/dL). IMAGING Imaging results: SI LEFT HEART CATH Cardiac Cath Report Date of Service 04/14/23 PATIENT PROFILE: The patient is a 73 y.o. male who presented with NSTEMI, high risk. PROCEDURE: 1. Moderate sedation for 52 minutes. 2. Retrograde left heart catheterization. 3. Selective coronary angiogram. 4. Balloon angioplasty and stenting to the 2nd diagonal branch VASCULAR CLOSURE DEVICE: StarClose. COMPLICATIONS: None. METHOD: Moderate sedation was achieved with IV Versed and IV fentanyl under my direct supervision for 52 minutes. Retrograde left heart catheterization was performed from the right groin under 1% lidocaine local anesthesia using a 6-Zimbabwean sheath. Selective coronary angiogram was performed in multiple projections by using JL4 and JR4 catheters. Heparin 100 units/kg and Prasugrel 60 mg were given. A 6-Zimbabwean JL4 guide was advanced to the left coronary ostium. A Runthrough wire was placed inside the second diagonal branch. The lesion was pre-dilated with a 2.5 x 15 mm balloon. A Xience 2.75 x 18 mm stent was placed inside the lesion and deployed at 12 atmospheres for 20 seconds. A 3.0 x 8 mm balloon was used for post stent deployment dilation in the proximal portion of the stent. Final angiogram was obtained. Following sheath removal, hemostasis was achieved by using Starclose device. He was transferred to CCU in good condition. TOTAL CONTRAST USED: 70 cc. FLUOROSCOPY TIME: 4.8 minutes. TOTAL RADIATION DOSE: 536 mGy. RESULTS: 1. Selective coronary angiogram: a. Left main coronary artery is short and normal. b. The left anterior descending artery is transapical and has 40% proximal stenosis. The first diagonal branch is large and has 30% proximal stenosis. The second diagonal branch is occluded at its origin. c. The circumflex artery has minor ectasia with 10% stenosis. d. The dominant right coronary artery has minor 10 to 20% stenosis. 2. Balloon angioplasty and stenting was performed to the occluded second diagonal branch lesion by deploying 1 drug-eluting stent (2.75 x 18 mm) to achieve an excellent angiographic result with GISELA-3 flow distally. 3. There is no gradient across the aortic valve on catheter withdrawal. 5. Aortic pressure is 114/57 mmHg. Left ventricular pressure is 114/16 mmHg. 6. Left ventricular end-diastolic pressure is 46 mmHg. CONCLUSION: 1. Occluded second lateral branch. 2. This was successfully treated with 1 drug-eluting stent. PRE: 100% stenosis with GISELA 0 POST: 0% stenosis with GISELA 3 3. 40% proximal left interesting artery stenosis 4. Left ventricular end-diastolic pressure is 46 mmHg. Lonny Fried MD XR [place]ST [address] [place] [address] PATIENT NAME: JAVI ROBERTSON : 1950 GENDER: M EXAM DATE: 04/14/2023 19:50 [facility]: LAUREN DE LEON CC: -- - - - CONTRAST: READING STATION ID: [id number] mGy: PROCEDURE: XR CHEST 1 VIEW INDICATIONS: chest pain TECHNIQUE: One view of the chest was acquired. COMPARISON: None. FINDINGS: Surgical changes and devices: None. Lungs and pleura: Lungs are clear. No pleural effusions or pneumothorax. Mediastinum: Mediastinal contours appear normal. Heart size is normal. Bones and chest wall: No suspicious bony lesions. Overlying soft tissues appear unremarkable. IMPRESSION: Portable chest within normal limits for age. Approved by: Viktor Rudd M.D. on 04/14/2023 at 19:14 Electronically signed by: Anabelle Devlin MD 04/15/2023 1:05 PM Portions of today's documentation have been created with the assistance of voice recognition software. Therefore, it may contain anomalous punctuation, anomalous independent misrecognitions, word substitutions, insertions or omissions. Occasional wrong-word or phonetically similar substitutions mayalso occur, all due to the inherent limitations of voice recognition software. Attempts to correct the above have been made by Anabelle Devlin MD but it is recommended that the chart be read carefully to recognize, using context, where the substitutions may have occurred. Associated attestation - Ethan Riley DO - 04/15/2023 5:55 PM PDT I saw and evaluated the patient, participating in the gibbons portions of the service. I reviewed the resident???s note. I agree with the resident???s findings and plan. documented in this encounter H&P Notes * Lauren De Anda MD - 04/14/2023 9:26 PM PDT [facility]: HISTORY & PHYSICAL Patient Name: Javi Robertson Date of : 1950 Age: 73 y.o. Code Status: No Order Primary Care Physician: Hector Aguirre MD Admitting Provider: Lonny Fried MD Attending Provider: Lonny Fried MD Admit Date: 04/14/2023 Date of Service: 04/14/2023 Hospital Day: 0 BMI Body mass index is 31.19 kg/m??. ASSESSMENT & PLAN Javi Robertson is a 73 y.o. male with past medical history of hyperlipidemia, history of pulmonary emboli, arthritis, INA who presented to emergency department for chest pain secondary to NSTEMI. NSTEMI, present on admission, active -EKG sinus rhythm, diffuse ST depressions in 2, 3, aVF, V4, V5, V6 -Initial troponin 0.309, will continue to trend -Started on heparin drip in emergency department -Interventional cardiology consulted and patient underwent cardiac catheterization 04/14/2023 whichdemonstrated occlusion of second diagonal branch with placement of 1 drug-eluting stent -Loaded with ASA, continue aspirin 81 mg daily, started on Plavix, Coreg 3.125 mg twice daily, lisinopril 5 mg twice daily, increase home rosuvastatin to 20 mg -Order echocardiogram -Check A1c, lipid -Monitor on telemetry Hypokalemia, present on admission, active -Potassium 3.1 -Monitor and replace as appropriate Chronic conditions, present on admission Hyperlipidemia: Continue rosuvastatin increased to 20 mg BPH: Flomax INA History of PE, no longer on anticoagulation VTE Prophylaxis: heparin subcutaneous Tobacco/Marijuana Dependence: Former smoker Code Status: Full code. Patient Status: Patient's expected length of stay: Greater than 2 midnights. Patient is under Inpatient status due to severity of presenting symptoms, complexity of treatment plan, and risk of adverse event. Functional status prior to admission: Independent. Functional expectation at discharge (including NSOC): Independent. How will the patient get home from the hospital?: Private transport (friends, family, or other) Are there any known barriers to discharge on admission?: None SUBJECTIVE Chief Complaint Patient presents with Chest Pain Source of History: The patient & chart review History of Present Illness Javi Robertson is a 73 y.o. male with past medical history of hyperlipidemia, history of pulmonary emboli, arthritis, INA who presented to emergency department for chest pain. Patient has been having intermittent chest pain over the past few days but worsened at approximately 1845 this evening. Patient states pain was substernal and radiated to the left jaw. Symptoms also associated with shortnessof breath and diaphoresis. Patient called EMS and on arrival he was noted to be diaphoretic. He received 324 mg aspirin and 3 doses of nitroglycerin by medics with some improvement of pain. Patient not meeting STEMI criteria however was clinically worsening in emergency department and interventional cardiology called for urgent cardiac catheterization. Patient does note family history of cardiac disease in his mother who in her mid 70s secondary to cardiac disease Review of Systems A comprehensive review of systems was conducted and found to be negative, except as above in the History of Present Illness. Allergies Allergies Allergen Reactions Tree Nuts Current Medications (Not in a hospital admission) Scheduled Meds: Continuous Infusions:heparin, 1,000 Units/hr, Last Rate: 1,000 Units/hr (04/14/231952) PRN Meds:. Past Medical History Past Medical History: Diagnosis Date Arthritis High cholesterol Hx of blood clots Prostate enlargement Sleep apnea Past Surgical History Past Surgical History: Procedure Laterality Date PARTIAL KNEE ARTHROPLASTY Right 2010 SHOULDER SURGERY Right 2000 TOTAL KNEE ARTHROPLASTY Left 2021 Family History family history includes Heart disease in his mother; Lung cancer in his brother. Social History The patient reports that he quit smoking about 51 years ago. His smoking use included cigarettes. He has a 5.00 pack-year smoking history. He has never used smokeless tobacco. He reports current alcohol use of about 1.0 standard drink of alcohol per week. He reports that he does not use drugs. Social History Social History Narrative Not on file OBJECTIVE First recorded vitals: Temp: 36.7 ??C (98 ??F) - BP: 120/76 - Heart Rate: 69 - Resp: 24 - SpO2: 98 % O2 Flow Rate (L/min):2 L/min Most recent vitals: Temp: 36.7 ??C (98 ??F) - BP: 90/65 - Heart Rate: 66 - Resp: 18 - SpO2: 100 % O2 Flow Rate (L/min):2 L/min Physical Exam Vitals and nursing note reviewed. Constitutional: Appearance: He is well-developed. HENT: Head: Normocephalic and atraumatic. Eyes: General: No scleral icterus. Conjunctiva/sclera: Conjunctivae normal. Pupils: Pupils are equal, round, and reactive to light. Neck: Thyroid: No thyromegaly. Trachea: No tracheal deviation. Cardiovascular: Rate and Rhythm: Normal rate and regular rhythm. Heart sounds: Normal heart sounds. No murmur heard. No friction rub. Pulmonary: Effort: Pulmonary effort is normal. No respiratory distress. Breath sounds: Normal breath sounds. No wheezing or rales. Chest: Chest wall: No tenderness. Abdominal: General: Bowel sounds are normal. There is no distension. Palpations: Abdomen is soft. There is no mass. Tenderness: There is no abdominal tenderness. There is no guarding. Musculoskeletal: General: No tenderness or deformity. Normal range of motion. Cervical back: Normal range of motion. Comments: Right groin cath site without hematoma Skin: General: Skin is warm and dry. Findings: No erythema or rash. Neurological: Mental Status: He is alert and oriented to person, place, and time. Cranial Nerves: No cranial nerve deficit. Psychiatric: Behavior: Behavior normal. Thought Content: Thought content normal. Judgment: Judgment normal. LABS & DIAGNOSTICS Hematology: Results from last 7 days Lab Units 04/14/231947 WBC AUTO x10e3/uL 10.5* HEMOGLOBIN g/dL 15.1 HEMATOCRIT % 43.2 MCV fL 90 PLATELETS AUTO x10e3/uL 245 Chemistries: Results from last 7 days Lab Units 04/14/231947 SODIUM mmol/L 141 POTASSIUM mmol/L 3.1* CHLORIDE mmol/L 108* CO2 mmol/L 20* BUN mg/dL 19.1 CREATININE mg/dL 1.00 GLUCOSE mg/dL 126* CALCIUM, SERUM mg/dL 8.7 AST U/L 34 ALT U/L 23 BILIRUBIN TOTAL mg/dL 0.4 ALBUMIN g/dL 4.0 TOTAL PROTEIN g/dL 7.5 Estimated Creatinine Clearance: 80.9 mL/min (by C-G formula based on SCr of 1 mg/dL). Micro: IMAGING XR CHEST 1 VIEW Result Date: 04/14/2023 IMPRESSION: Portable chest within normal limits for age. Approved by: Viktor Rudd M.D. on 04/14/2023 at 19:14 Electronically signed by: Lauren De Anda MD 04/14/2023 9:26 PM Portions of today's documentation have been created with the assistance of voice recognition software. Therefore, it may contain anomalous punctuation, anomalous independent misrecognitions, word substitutions, insertions or omissions. Occasional wrong-word or phonetically similar substitutions mayalso occur, all due to the inherent limitations of voice recognition software. Attempts to correct the above have been made by Lauren De Anda MD but it is recommended that the chart be read carefully torecognize, using context, where the substitutions may have occurred. documented in this encounter Consult Notes * Lonny Fried MD - 04/14/2023 8:37 PM PDT Initial Cardiology Consultation Patient Name: Javi Robertson Date of : 1950 Date of Admission: 04/14/2023 Date of Consultation: 04/14/2023 Primary Care Physician: Hector Aguirre MD Referring Physician: Lauren De Leon MD Code Status: No Order Reason for Consultation: Chest pain HISTORY OF PRESENT ILLNESS: Mr. Robertson is a 73 y.o. male who has a history of hypercholesterolemia and prior smoker. He used tosmoke 1 pack/day for 5 years and quit smoking when he was 23 years ago. He was in his usual state of health until the past week when he has recurrent chest discomfort almost on a daily basis. Today sometime after 6:30 PM, he suddenly developed central severe chest discomfort. It radiated to his back. He rated 7 out of 10. It was associated with shortness of breath, diaphoresis and nausea. EKG at 7:39 PM shows sinus rhythm rate [address] depression in 2 3 aVF and V4 to V6. EKG at 7:56 PM show ectopic atrial rhythm rate [address] depression. EKG at 8:11 PM shows sinus rhythm rate [address] depression. Past Medical History: Past Medical History: Diagnosis Date Arthritis High cholesterol Hx of blood clots Prostate enlargement Sleep apnea Past Surgical History: Procedure Laterality Date PARTIAL KNEE ARTHROPLASTY Right 2010 SHOULDER SURGERY Right 2000 TOTAL KNEE ARTHROPLASTY Left 2021 Allergies: Allergies Allergen Reactions Tree Nuts Home Medications: Rosuvastatin 5 mg daily Flomax Current Medications: Scheduled Meds:heparin (porcine), , , heparin (porcine) in NaCl (PF), , , Continuous Infusions:heparin, 1,000 Units/hr, Last Rate: 1,000 Units/hr (04/14/231952) PRN Meds: heparin (porcine) heparin (porcine) in NaCl (PF) Family History: His mother suffered a heart attack at age 72 Family History Problem Relation Age of Onset Heart disease Mother Lung cancer Brother Social History: He used to smoke 1 pack/day for 5 years and quit smoking when he was 22 years old Social History Socioeconomic History Marital status: Spouse name: Not on file Number of children: Not on file Years of education: Not on file Highest education level: Not on file Occupational History Not on file Tobacco Use Smoking status: Former Packs/day: 1.00 Years: 5.00 Additional pack years: 0.00 Total pack years: 5.00 Types: Cigarettes Quit date: 1971 Years since quittin.8 Smokeless tobacco: Never Vaping Use Vaping Use: Never used Substance and Sexual Activity Alcohol use: Yes Alcohol/week: 1.0 standard drink of alcohol Types: 1 Glasses of wine per week Drug use: Never Sexual activity: Not on file Other Topics Concern Not on file Social History Narrative Not on file Social Determinants of Health Financial Resource Strain: Not on file Food Insecurity: Not on file Transportation Needs: Not on file Physical Activity: Not on file Stress: Not on file Social Connections: Not on file Intimate Partner Violence: Not on file Housing Stability: Not on file Review of Systems: 12 point review of systems is negative except for the ones mentioned in the HPI. Physical Examination: Vital Signs on Arrival: Temp: 36.7 ??C (98 ??F) BP: 120/76 Heart Rate: 69 Resp: 24 SpO2: 98 % on Most Recent Vital Signs: Temp Av.7 ??C (98 ??F) Min: 36.7 ??C (98 ??F) Max: 36.7 ??C (98 ??F) BP: 115/68 Heart Rate: 67Resp: 24 SpO2: 99 % on Oxygen: SpO2: 99 % on liters via No intake/output data recorded. I/O???s (24 hours): No intake or output data in the 24 hours ending 04/14/232036 Admission Weight: Weight: 104 kg Current weight: Weight: 104 kg General appearance Alert and oriented x 3, uncomfortable Head/Neck JVP not elevated, no carotid bruits, sclera anicteric Lungs Clear to auscultation bilaterally, no crackles or wheezes Chest wall Non-tender throughout Heart regular rate and rhythm, normal S1 and S2, no murmur and no murmur with standing, no click, rub or gallop, PMI is non-displaced Abdomen Normal bowel sounds, non-tender, non-distended, no masses, no ascites or hepatosplenomegaly Extremities no clubbing, no cyanosis, no edema, warm and well perfused Pulses 2+ upper extremity symmetric pulses bilaterally Skin no rashes Neurologic Alert and oriented x 3, no gross motor or sensory deficits, normal affect STUDIES: Labs: Today at 7:48 PM show potassium 3.1, BUN 19, creatinine 1.0, glucose 126, AST 34, troponin I 0.309,hemoglobin 15.1, WBC 10.5, platelet 245 IMPRESSION AND RECOMMENDATIONS: Mr. Robertson is a 73 y.o. male who is now on Hospital Day: 1 after being admitted for chest pain 1. Non-ST elevated myocardial infarction, high risk 2. Hypercholesterolemia 3. History of smoking 4. Hypokalemia Plan: The patient will undergo emergent coronary angiogram and possible percutaneous intervention. The risk and benefit of the procedure has been explained to the patient. He understands and agrees to proceed with the procedure. Critical care time 35 minutes documented in this encounter Nursing Notes * Julieth Galloway RN - 04/16/2023 3:01 PM PDTSummary: nursing Hourly rounding completed and all of patient's needs have been met. Discharge teaching completed with patient and . All questions have been answered and patient acknowledgement form signed and filed. Patient reports good urine output. Denies any cardiac symptoms. Patient discharged home with at 15:00. * Andreina Salas - 04/15/2023 10:37 PM PDT Identify possible barriers to meeting goals/advancing plan of care: wound care, cardiac monitoring. End of Shift/ Care Plan Summary: Pt A&O x 4. SB-SR. HR 50s-60s. Denies cardiac symptoms. R groin site dry and intact. Small amount of old drainage on bandage. Some tenderness. Small amountof bruising. No changes this shift. Pt concerned regarding ability to sleep. Requested and was given melatonin. Also given chamomile tea. All cares and safety checks done. Problem: Cardiovascular - Adult Goal: Maintains optimal cardiac output and hemodynamic stability Outcome: Progressing * Man Gonzalez RN - 04/15/2023 5:40 PM PDT Problem: Pain - Adult Goal: Verbalizes/displays adequate comfort level or baseline comfort level Outcome: Progressing Problem: Infection - Adult Goal: Isolation precautions followed Outcome: Progressing Goal: Absence of infection during hospitalization Outcome: Progressing Goal: Absence of fever/infection during anticipated neutropenic period Outcome: Progressing Problem: Safety Adult - Fall Goal: Free from fall injury Outcome: Progressing Problem: Discharge Planning Goal: Discharge to home or other facility with appropriate resources Outcome: Progressing Problem: Altered Nutrient Intake - Adult Goal: Nutrient intake appropriate for improving, restoring or maintaining nutritional needs Outcome: Progressing Problem: Cardiovascular - Adult Goal: Maintains optimal cardiac output and hemodynamic stability Outcome: Progressing Goal: Absence of cardiac dysrhythmias or at baseline Outcome: Progressing Problem: Respiratory - Adult Goal: Achieves optimal ventilation and oxygenation Outcome: Progressing Identify possible barriers to meeting goals/advancing plan of care: none End of Shift/ Care Plan Summary: see note * Man Gonzalez RN - 04/15/2023 5:38 PM PDT A&O x 4, call light appropriate Room air Saline locked Rt groin access site clean dry intact . VS within normal limits * Jesenia Edward RN - 04/14/2023 11:39 PM PDT End of Shift/ Care Plan Summary: Pt admitted to room 2020 from clinical genetics laboratory chief at 2140 post stent. Pt Aox4, able to make needs known, all VSS. Rt groin site remains intact with stable, small amount of drainage noted and outlined, remains soft on palpation. Bedrest completed at 0200 - pt sitting up in bed,site remains WDL. Pt reports chest pain at a 2/10 post procedure with no other complaints. Pt and wi fe updated on plan of care. Problem: Pain - Adult Goal: Verbalizes/displays adequate comfort level or baseline comfort level Outcome: Progressing Problem: Cardiovascular - Adult Goal: Maintains optimal cardiac output and hemodynamic stability Outcome: Progressing Goal: Absence of cardiac dysrhythmias or at baseline Outcome: Progressing Problem: Respiratory - Adult Goal: Achieves optimal ventilation and oxygenation Outcome: Progressing documented in this encounter ED Notes * Lisseth Kelly RN - 04/14/2023 8:02 PM PDT 5- pt arrived via EMS. MD at bedside. EKG orders. Labs collected. 1954- order obtained for heparin and morphine. 1956- Pt c/o worsening pain. Becoming more diaphoretic and lethargic. MD called to bedside and cathlab activated. Repeat EKG completed. Pads placed. 2023- [employer] at bedside. 2033- Pt transported to clinical genetics laboratory chief by team Lisseth Kelly RN 04/14/232033 * Lisseth Kelly RN - 04/14/2023 7:45 PM PDT BIBA for sudden onset chest pressure that radiates to jaw after 2 weeks of vague chest pain. Received ASA and nitrox3 by medics. at bedside. * Lauren De Leon MD - 04/14/2023 7:36 PM PDTAssociated Order(s): Critical Care CHIEF COMPLAINT Chief Complaint Patient presents with Chest Pain HPI Javi Robertson is a 73 y.o. male with a PMHx notable for hyperlipidemia and history of pulmonary emboli who presents to the ED via EMS for evaluation of chest pain. Per report from medics, the patienthas been experiencing mild intermittent chest pains over the past couple of days that suddenly became significantly worse at about 18:45 tonight when he also became diaphoretic and began experiencingpain radiating up into his jaw. He has no known cardiac history; however, his mother of a heart attack at the same age. Denies any abdominal pain or pain radiating into back. While en route to the Emergency Department, medics administered ASA 324 mg and three doses of nitroglycerin. Patient reports taking Flomax and atorvastatin but is not currently anticoagulated. REVIEW OF SYSTEMS Review of systems as mentioned in the history of present illness and includes a review of constitutional, ENT, cardiovascular, respiratory, gastrointestinal, genitourinary, musculoskeletal, dermatologic, endocrine, neurologic, and immunologic systems. Review is negative unless specifically mentioned in the HPI. PAST MEDICAL HISTORY Past Medical History: Diagnosis Date Arthritis High cholesterol Hx of blood clots Prostate enlargement Sleep apnea PAST SURGICAL HISTORY Past Surgical History: Procedure Laterality Date PARTIAL KNEE ARTHROPLASTY Right 2010 SHOULDER SURGERY Right 1999 TOTAL KNEE ARTHROPLASTY Left 2021 FAMILY HISTORY Family History Problem Relation Age of Onset Heart disease Mother Lung cancer Brother SOCIAL HISTORY Social History Socioeconomic History Marital status: Tobacco Use Smoking status: Former Packs/day: 1.00 Years: 5.00 Additional pack years: 0.00 Total pack years: 5.00 Types: Cigarettes Quit date: 1971 Years since quittin.8 Smokeless tobacco: Never Vaping Use Vaping Use: Never used Substance and Sexual Activity Alcohol use: Yes Alcohol/week: 1.0 standard drink of alcohol Types: 1 Glasses of wine per week Drug use: Never CURRENT MEDICATIONS Current Discharge Medication List CONTINUE these medications which have NOT CHANGED Details acetaminophen (TYLENOL) 325 mg tablet Take 325 mg by mouth as needed for mild pain Eliquis 5 mg tablet TAKE TWO TABLETS BY MOUTH TWICE DAILY FOR 7 DAYS THEN ONE TABLET BY MOUTH TWICEDAILY AFTER naproxen (NAPROSYN) 375 mg tablet Take 400 mg by mouth 2 (two) times a day with meals pseudoephedrine (SUDAFED) 30 mg tablet Take 30 mg by mouth every 4 (four) hours as needed for congestion rosuvastatin (CRESTOR) 10 mg tablet Take 1 tablet by mouth daily tamsulosin (FLOMAX) 0.4 mg capsule Take 0.4 mg by mouth daily ALLERGIES Allergies Allergen Reactions Tree Nuts PHYSICAL EXAM Vitals: 04/14/23201004/14/237 04/14/23212404/14/232146 BP: 115/68 102/68 90/65 BP Location: Left arm Right arm Patient Position: Lying Pulse: 66 66 Resp: 15 18 Temp: 36.9 ??C (98.4 ??F) TempSrc: Oral SpO2: 100% 100% Weight: 111 kg Height: Physical Exam Vitals and nursing note reviewed. Constitutional: Appearance: He is well-developed. He is diaphoretic. HENT: Head: Normocephalic and atraumatic. Eyes: Conjunctiva/sclera: Conjunctivae normal. Cardiovascular: Rate and Rhythm: Normal rate and regular rhythm. Heart sounds: No murmur heard. Pulmonary: Effort: Pulmonary effort is normal. No respiratory distress. Breath sounds: Normal breath sounds. Abdominal: Palpations: Abdomen is soft. Tenderness: There is no abdominal tenderness. Musculoskeletal: Cervical back: Neck supple. Skin: General: Skin is warm. Neurological: Mental Status: He is alert. CONSULTED: 19:[address] Fernandez, interventional cardiology, to inform him of the patient's worsening chest painand diaphoresis. He agrees with plan to activate the clinical genetics laboratory chief. 20:[address] Rudd, radiology, for a stat read on the patient's X-ray. They do not believe this is a wide mediastinum. 20:[address] De Anda, hospitalist, regarding patient's case. He agrees with the evaluation and accepts the patient's admission. DIFFERENTIAL DIAGNOSES CONSIDERED, BUT NOT LIMITED TO: ACS, DC, dissection, pulm embolism, among other diagnoses are considered. Critical Care Performed by: Lauren De Leon MD Authorized by: Lauren De Leon MD Critical care provider statement: Critical care time (minutes): 45 Critical care time was exclusive of: Separately billable procedures and treating other patients andteaching time Critical care was necessary to treat or prevent imminent or life-threatening deterioration of the following conditions: Cardiac failure Critical care was time spent personally by me on the following activities: Blood draw for specimens, ordering and performing treatments and interventions, development of treatment plan with patient or surrogate, ordering and review of laboratory studies, ordering and review of radiographic studies,evaluation of patient's response to treatment, pulse oximetry, re-evaluation of patient's condition, examination of patient, review of old charts, obtaining history from patient or surrogate and discussions with consultants I assumed direction of critical care for this patient from another provider in my specialty: no Care discussed with: admitting provider MEDICAL DECISION MAKING ED Course as of 04/14/23 2206 Sat Apr 14, 20231944 Patient is a 73-year-old male coming here today for chest pain. Patient has had 2 days of chest pain but has acutely worsened starting at 645 tonight. Called EMS. EMS found patient diaphoretic at home. Transported patient here and EKGs were transmitted from the field and I reviewed them. He does have evidence of ischemia with inversions in inferior leads. Does not meet STEMI criteria withoutsignificant elevations or reciprocal depressions. He does appear uncomfortable here and I consultedimmediately are cell tender helper. We discussed the case and he reviewed EKGs. At this time recommending heparin 5000 bolus and starting patient on heparin infusion. Recommending giving aspirin which patient received in the field. Also recommending beta-blockade, but given patient's heartrate and blood pressure we will currently hold this and monitor. We will repeat EKG in 15 minutes. [RB] 1957 Repeat EKG obtained. Patient appears clinically worsening with severe diaphoresis and chest pain. This time I have reached back out to interventional cardiology and we are activating the Console Assembler. [RB] 2009 Considered dissection as a cause of his chest pain. No radiating pain to his back. We are checking upper extremity blood pressures. Had difficult views on ultrasound. Chest x-ray obtained and him reaching out to radiology to discuss potential of wide mediastinum. [RB] 2010 Blood pressure is reassuring. Right 110/72, left 115/68. [RB] 2011 I spoke with radiology who does not believe this is wide mediastinum. Decrease suspicion this time for acute dissection. [RB] ED Course User Index [RB] Lauren De Leon MD Given patient is with worsening chest pain I reached out to interventional cardiology. Graciously they came and evaluated patient and ultimately took him to the cardiac catheterization lab. Independent review of blood work that arrived when patient was going up to Console As[facility]er showed elevated opponent 0.3 increased concern for ACS. Spoke with hospitalist and patient will be admitted post [facility] As[facility]. Medical Decision Making Amount and/or Complexity of Data Reviewed Labs: ordered. Radiology: ordered. ECG/medicine tests: ordered. Risk Prescription drug management. Decision regarding hospitalization. Chest pain with EKG changes: Complicated acute illness or injury with systemic symptoms that poses a threat to life or bodily functions I INDEPENDENTLY INTERPRETED EKG: Sinus rhythm, normal rate, T wave inversions in lead II and III and aVF. No significant ST segment elevations. IMAGING: I have independently reviewed the patient's radiographs and I have made decisions on the medical management of this patient based on this review. Additionally, I have reviewed the radiologist's interpretation of these films. SpO2: 98% Oxygen: Room Air Interpretation: Normal Intervention: None LABS/RADIOLOGY RESULTS: Labs Reviewed COMPREHENSIVE METABOLIC PANEL (CMP) - Abnormal Result Value Sodium, Serum/Plasma 141 Potassium, Serum/Plasma 3.1 (*) Chloride, Serum/Plasma 108 (*) CO2, Serum/Plasma 20 (*) Anion Gap, Serum/Plasma 13 (*) Urea Nitrogen, Serum/Plasma 19.1 Creatinine, Serum/Plasma 1.00 Glucose, Serum/Plasma 126 (*) Calcium, Serum/Plasma 8.7 AST, Serum/Plasma 34 ALT, Serum/Plasma 23 Alkaline Phosphatase, Serum/Plasma 102 Total Protein, Serum/Plasma 7.5 eGFR, Serum/Plasma (CKD-EPI 2020) 79 Albumin, Serum/Plasma 4.0 Bilirubin, Total, Serum/Plasma 0.4 BUN/Creatinine Ratio, Serum/Plasma 19.1 D-DIMER - Abnormal D-Dimer (ug/mL FEU) 1.36 (*) TROPONIN WITH REFLEX TO CK AND CK-MB - Abnormal Troponin I, Serum/Plasma 0.309 (*) COMPLETE BLOOD COUNT WITH DIFF RESULT - Abnormal WBC Auto 10.5 (*) RBC 4.80 Hemoglobin 15.1 Hematocrit 43.2 MCV 90 MCH 31.5 MCHC 35.0 RDW 11.9 (*) Platelets 245 MPV 10.4 NRBC % 0 Abs. NRBC 0.0 % Neutrophils 61 % Lymphocytes 27 % Monocytes 9 % Eosinophils 2 % Basophils 1 Abs. Neutrophils 6.4 Abs. Lymphocytes 2.9 Abs. Monocytes 0.9 Abs. Eosinophils 0.2 Abs. Basophils 0.1 Abs. Neutrophils (Auto) 6,400.0 B-TYPE NATRIURETIC PEPTIDE - Normal NT-proBNP, Serum/Plasma 50 PROTHROMBIN TIME INR - Normal Prothrombin Time 12.9 INR 1.0 COMPLETE BLOOD COUNT WITH DIFF Narrative: The following orders were created for panel order CBC with diff. Procedure Abnormality Status --------- ------ Complete blood count with...[[id number]] Abnormal Final result Please view results for these tests on the individual orders. EXTRA TUBES Narrative: The following orders were created for panel order Extra Tubes. Procedure Abnormality Status --------- ------ Hold Red Top[[id number]] Final result Hold Rodriguez Top - NaFluorid...[[id number]] Final result Please view results for these tests on the individual orders. EXTRA TUBES Narrative: The following orders were created for panel order Extra Tubes. Procedure Abnormality Status --------- ------ Hold Red Top[[id number]] Final result Hold Rodriguez Top - NaFluorid...[[id number]] In process Please view results for these tests on the individual orders. THYROID STIMULATING HORMONE HEMOGLOBIN A1C POCT GLUCOSE HOLD RED TOP Extra Tube Hold for add-ons. HOLD RODRIGUEZ TOP - NAFLUORIDE/POTASSIUM OX Extra Tube Hold for add-ons. HOLD RED TOP Extra Tube Hold for add-ons. HOLD RODRIGUEZ TOP - NAFLUORIDE/POTASSIUM OX XR CHEST 1 VIEW Final Result IMPRESSION: Portable chest within normal limits for age. Approved by: Viktor Rudd M.D. on 04/14/2023 at 19:14 SI LEFT HEART CATH (Results Pending) FOLLOW-UP RECOMMENDATIONS: [address] [id number] Test results were discussed with the patient and/or the patient's family. The diagnosis was discussed with the patient and/or the patient's family. The treatment plan, as specified under disposition documentation, was discussed with the patient and/or the patient's family. The patient and/or the patient's family have expressed understanding and comprehension of the plan. Final diagnoses: [I24.9] ACS (acute coronary syndrome) (CMS-HCC) [R07.9] Chest pain, unspecified type Scribe attestation: IJeanne, am serving as scribe to document services personally performed by Lauren De Leon MD, based on my observation and the provider's statements to me. Scribe: Jeanne Cordova scribing for and in the presence of Lauren De Leon MD. Provider: ILauren MD, personally performed the services described in the documentation, reviewed and edited the documentation which was dictated to the scribe in my presence, and it accurately records my words and actions. Electronically signed by: Lauren De Leon MD, ED Provider 04/14/2023, 10:06 PM. Lauren De Leon MD 04/14/232205 documented in this encounter Plan of Treatment Upcoming Encounters Date Type Department Care Team Description 05/15/2023 1:00 PM PST Office Visit [facility] Cardiology [address], [address] [place] [address] Winnie Salguero, COMMUNICATION SPECIALIST [address] [place] [address] Scheduled Orders Name Type Priority Associated Diagnoses Orde r Schedule ECG 12 lead ECG STAT Once for 1 Oc currences starting 04/14/2023 until 04/14/2023 ECG 12 lead ECG Routine Once for 1 Oc currences starting 04/14/2023 until 04/14/2023 Scheduled Referrals Name Type Priority Associated Diagnoses Order Schedule Ambulatory Referral to Cardiac Rehabilitation Outpatient Referral Routine NSTEMI (non-ST elevated myocardial infarction) ([facility]) 1 Occurrences starting 04/14/2023 until 10/14/2023 *SRC MV Referral to Cardiology Outpatient Referral STAT NSTEMI (non-ST elevated myocardial infarction) ([facility]) Ordered: 04/16/2023 documented as of this encounter Medical Devices Implanted Type Area Ticketer Device Identifier Shelf Expiration Date Model / Serial / Lot Stent Xience Skypoint 2.75*18 - [id number] Implanted:Qty: 1 on 04/14/2023 at [facility] [id number] / / documented as of this encounter Procedures Procedure Name Priority Date/Time Associated Diagnosis Comments DISCHARGE PATIENT Routine 04/16/2023 2:0 4 PM PDT CK AND CK-MB Timed 04/16/2023 11:44 AM PDT BASIC METABOLIC PANEL Add-On 04/16/2023 9:26 AM PDT ECHOCARDIOGRAM COMPLETE Routine 04/16/2023 8:20 AM PDT CK AND CK-MB Timed 04/16/2023 4:44 AM PDT COMPLETE BLOOD COUNT WITH DIFF RESULT Routine 04/16/2023 4:43 AM PDT COMPLETE BLOOD COUNT WITH DIFF Routine 04/16/2023 4:43 AM PDT CK AND CK-MB Timed 04/15/2023 11:25 PM PDT CK AND CK-MB Timed 04/15/2023 6:02 PM PDT T4+FREE T4 Routine 04/15/2023 2:25 PM PDT TRIIODOTHYRONINE, FREE Routine 2:25 PM PDT TROPONIN WITH REFLEX TO CK AND CK-MB Routine 04/15/2023 2:18 PM PDT CK AND CK-MB Timed 04/15/2023 2:18 PM PDT COMPLETE BLOOD COUNT WITH DIFF RESULT Routine 04/15/2023 6:06 AM PDT COMPLETE BLOOD COUNT WITH DIFF Routine 04/15/2023 6:06 AM PDT TROPONIN WITH REFLEX TO CK AND CK-MB Timed 04/15/2023 6:06 AM PDT MAGNESIUM Routine 04/15/2023 6:06 AM PDT CK AND CK-MB Timed 04/15/2023 6:06 AM PDT LIPID PANEL Routine 04/15/2023 6:06 AM PDT BASIC METABOLIC PANEL Routine 04/15/2023 6:06 AM PDT TROPONIN WITH REFLEX TO CK AND CK-MB Timed 04/14/2023 11:46 PM PDT CK AND CK-MB Timed 04/14/2023 11:46 PM PDT ECG 12-LEAD STAT 04/14/2023 11:22 PM PDT SI LEFT HEART CATH Routine 04/14/2023 9: 23 PM PDT XR CHEST 1 VIEW STAT 04/14/2023 8:21 PM PDT REES TOP - NAFLUORIDE Routine 04/14/2023 8:17 PM PDT EXTRA TUBES Routine 04/14/2023 8:17 PM PDT RED TOP Routine 04/14/2023 8:17 PM PDT THYROID STIMULATING HORMONE STAT Add-on 04/14/2023 8:17 PM PDT REES TOP - NAFLUORIDE Routine 04/14/2023 8:13 PM PDT EXTRA TUBES Routine 04/14/2023 8:13 PM PDT RED TOP Routine 04/14/2023 8:13 PM PDT ECG 12-LEAD STAT 04/14/2023 8:11 PM PDT ECG 12-LEAD STAT 04/14/2023 7:56 PM PDT COMPLETE BLOOD COUNT WITH DIFF RESULT STAT 04/14/2023 7:48 PM PDT PROTHROMBIN TIME STAT 04/14/2023 7:48 PM PDT D-DIMER STAT 04/14/2023 7:48 PM PDT COMPLETE BLOOD COUNT WITH DIFF STAT 04/14/2023 7:48 PM PDT TROPONIN WITH REFLEX TO CK AND CK-MB STAT 04/14/2023 7:48 PM PDT B-TYPE NATRIURETIC PEPTIDE STAT 04/14/2023 7:48 PM PDT HEMOGLOBIN A1C STAT Add-on 04/14/2023 7:48 PM PDT COMPREHENSIVE METABOLIC PANEL STAT 04/14/2023 7:48 PM PDT ECG 12-LEAD STAT 04/14/2023 7:39 PM PDT ED CRITICAL CARE Routine 04/14/2023 7:36 PM PDT TELEMETRY EXTERNAL RESULTS 04/14/2023 TELEMETRY EXTERNAL RESULTS 04/14/2023 documented in this encounter Results * (ABNORMAL) CK and CK-MB (04/16/2023 11:44 AM PDT) CK, Total, Serum/Plasma 443(H) 20 - 200 U/L LAB CHEMISTRY METHOD 04/16/2023 12:55 PM PDT [facility] CK-MB Index, Ser/Juany 2.4 0.0 - 5.0 % 04/16/2023 12:55 PM PDT [facility] CK-MB, Serum/Plasma 10.7(HC) 0.2 - 7.7 ng/mL LAB CHEMISTRY METHOD 04/16/2023 12:55 PM PDT [facility] Blood Venous blood / Unknown Venipuncture / Unknown 04/16/2023 11:44 AM PDT 04/16/2023 11:58 AM PDT Lonny Fried MD LAB BLOOD ORDERA BLES [facility] [address] [place] [address], * (ABNORMAL) Basic metabolic panel (04/16/2023 9:26 AM PDT) Sodium, Serum/Plasma 138 135 - 145 mmol/L LAB CHEMISTRY METHOD 04/16/2023 10:12 AM PDT [facility] Potassium, Serum/Plasma 4.3 3.5 - 5.2 mmol/L LAB CHEMISTRY METHOD 04/16/2023 10:12 AM PDT [facility] Chloride, Serum/Plasma 103 98 - 107 mmol/L LAB CHEMISTRY METHOD 04/16/2023 10:12 AM PDT [facility] CO2, Serum/Plasma 24 22 - 30 mmol/L LAB CHEMISTRY METHOD 04/16/2023 10:12 AM PDT [facility] Anion Gap, Serum/Plasma 11 3 - 11 mmol/L 04/16/2023 10:12 AM PDT [facility] Urea Nitrogen, Serum/Plasma 16.4 8.0 - 27.0 mg/dL LAB CHEMISTRY METHOD 04/16/2023 10:12 AM PDT [facility] Creatinine, Serum/Plasma 0.93 0.76 - 1.27 mg/dL LAB CHEMISTRY METHOD 04/16/2023 10:12 AM PDT [facility] Glucose, Serum/Plasma 124(H) 65 - 99 mg/dL LAB CHEMISTRY METHOD 04/16/2023 10:12 AM PDT [facility] Calcium, Serum/Plasma 8.7 8.5 - 10.1 mg/dL LAB CHEMISTRY METHOD 04/16/2023 10:12 AM [facility] eGFR, Serum/Plasma (CKD-EPI 2020) 86 >60 (CKD-EPI 2020) mL/min/1. 73 m2 04/16/2023 10:12 AM PDT [facility] Comment:eGFR calculation has been updated by recommendation of the [employer] (NKF) without the race variable. This change was made on September 18, 2022 BUN/Creatinine Ratio, Serum/Plasma 17.6 6.0 - 24.0 04/16/2023 10:12 AM PDT [facility] [facility] Blood Venous blood / Unknown Venipuncture / Unknown 04/16/2023 9:26 AM PDT 04/16/2023 9:31 AM PDT Ethan Riley DO LAB BLOOD ORDERABLES [facility] [address] [place] [address], * ECHOCARDIOGRAM COMPLETE (04/16/2023 8:20 AM PDT) Anatomical Region Laterality Modality N/A Echocardiography 04/16/2023 7:58 AM PDT Narrative 04/16/2023 10:27 AM PDT ? [facility] + + ? Hospital ?+---------+ : ?: ?[address] ?: ? : : ?: ?[address] ?: ? : : ?: ?[place], ?: ? : : ?: ? [place] [address] ?: ? : : ?: ?Phone: [phone] ?+---------+ + + ? [phone] ? Echocardiogram Report + + :Name: JAVI ROBERTSON ?Study Date: 04/16/2023 ?Height: 72 in ??: :[facility] ? ReadingLocation[facility] ?Weight: 245 lb : : ?Gender: Male ?BSA: 2.3 m2 ?: :: 1950 ? Age: 73 yrs ? BP: 108/67 mmHg: :Reason For Study: NSTEMI ? : :Ordering Physician: ?: :^ETHAN ?Performed By: Dayanna Alvarez ? : :Referring: LONNY FRIED ? : + + Interpretation Summary Normal left ventricle size with ejection fraction 45-50%. Severe hypokinesis of anterolateral wall and mid anterior septum. Borderline dilated right ventricle with normal right ventricular systolic function. Mild mitral regurgitation. The ascending aorta is moderately enlarged. The aortic arch is mildly enlarged. Procedure: ?? A two-dimensional transthoracic echocardiogram with color flow and Doppler was performed. The study quality was technically adequate. The study was done portably. There is no prior echocardiogram noted for this patient. The patient was in normal sinus rhythm during the exam. Left Ventricle: ?? The left ventricle is normal in size and wall thickness. There is no ventricular septal defect visualized. The ejection fraction is estimated to be 45-50%. There is anterolateral wall severe hypokinesis. There is mid anteroseptal wall severe hypokinesis. There are no other obvious focal wall motion abnormalities. Right Ventricle: ?? The right ventricle is borderline dilated. The right ventricular systolic function is normal. Atria: ?? Both atria are normal in size. There is no Doppler evidence for an interatrial shunt. Mitral Valve: ?? The mitral valve leaflets appear normal. There is no evidence of stenosis, fluttering, or prolapse. There is no mitral valve stenosis. There is mild mitral regurgitation. Aortic Valve: ?? The aortic valve is trileaflet. The aortic valve opens well. There is no aortic valve stenosis. There is trace aortic regurgitation. Tricuspid Valve: ?? The tricuspid valve is normal. There is trace tricuspid regurgitation. The right ventricular systolic pressure is estimated to be at least 19 mmHg based on an estimated right atrial pressure of 3 mm Hg. Pulmonic Valve: ?? The pulmonic valve leaflets are thin and pliable; valve motion is normal. There is a trace or physiologic amount of pulmonic regurgitation. Great Vessels: ?? The aortic root is mildly dilated. The ascending aorta is moderately enlarged. The aortic arch is mildly enlarged. The pulmonary artery is normal size. The IVC is of normal diameter and collapses greater than 50% with a sniff. This suggests a low right atrial pressure of 3 mm Hg. Pericardium/ Pleura ?? There is no pericardial effusion. There is no pleural effusion. MMode/2D Measurements & Calculations LVIDd: 4.8 cm ? AoV Openin.7 cm LVIDs: 3.8 cm ? LVOT diam: 2.7 cm IVSd: 1.1 cm ?Ao root diam: 3.9 cm LVPWd: 0.98 cm ?asc Aorta Diam: 4.1 cm LV dickson. diameter/BSA (cm/m^2): 2.1 LV sys. diameter/BSA (cm/m^2): 1.6 FS: 21.4 % EPSS: 0.48 cm ? LA A2 area: 16.8 cm2 ?RA long axis: 5.2 cm LA A4 area: 18.1 cm2 ?RA area: 14.0 cm2 LA length (vol): 4.7 cm ? RA vol: 32.3 ml LA vol: 55.0 ml ? RA : 13.9 ml/m2 LA vol index: 23.7 ml/m2 ? TAPSE: 2.1 cm ? IVC diam: 1.6 cm Doppler Measurements & Calculations Ao V2 max: 86.2 cm/sec ?LVOT Max Markus: 79.1 cm/sec Ao V2 mean: 65.6 cm/sec ? LV V1 max P.5 mmHg Ao V2 VTI: 19.3 cm ?LV V1 VTI: 14.4 cm Ao max P.0 mmHg Ao mean P.8 mmHg ? ZACH(I,D): 4.1 cm2 ? MV E max markus: 44.5 cm/sec ZACH(V,D): 5.1 cm2 ? MV A max markus: 69.3 cm/sec ZACH indexed to BSA (cm^2/m^2): 1.8 ?MV E/A: 0.64 sev ratio: 0.74 ?Med Peak E' Markus: 5.0 cm/sec ?E/E' med: 8.9 ?Lat Peak E' Markus: 6.2 cm/sec ?E/E' lat: 7.2 ?E/e' average: 8.1 ? MV dec time: 0.26 sec ? TR max markus: 202.5 cm/sec MV mean P.48 mmHg ? TR max P.4 mmHg MVA(VTI): 5.1 cm2 ? Pulm A Revs Markus: 28.1 cm/sec ?MV V2 mean: 30.6 cm/sec ?MV V2 VTI: 15.6 cm ? SV(LVOT): 80.0 ml ?Electronically signed by: Lonny Candelario on Reading Physician:04/16/2023 10:27 AM Procedure Note Lonny Fried MD - 04/16/2023 [facility] + + Hospital+---------+ : : [address] :: : : [address] :: : : [place], :: : : [place] [address] :: : : Phone: [phone] Echocardiogram Report + + :Name: JAVI ROBERTSON Study Date: 04/16/2023 Height: 72in : :[facility] #: [id number] ReadingLocation: [facility] Weight: 245lb : : Gender: Male BSA: 2.3 m2: :: 1950 Age: 73 yrs BP: 108/67mmHg: :Reason For Study: NSTEMI: :Ordering Physician:: :TEJA Performed By: Dayanna Alvarez : :Referring: LONNY FRIED: + + Interpretation Summary Normal left ventricle size with ejection fraction 45-50%. Severe hypokinesis of anterolateral wall and mid anterior septum. Borderline dilated right ventricle with normal right ventricularsystolic function. Mild mitral regurgitation. The ascending aorta is moderately enlarged. The aortic arch is mildly enlarged. Procedure: A two-dimensional transthoracic echocardiogram with colorflow and Doppler was performed. The study quality was technically adequate.The study was done portably. There is no prior echocardiogram noted for this patient. The patient was in normal sinus rhythm during the exam. Left Ventricle: The left ventricle is normal in size and wallthickness. There is no ventricular septal defect visualized. The ejection fractionis estimated to be 45-50%. There is anterolateral wall severe hypokinesis.There is mid anteroseptal wall severe hypokinesis. There are no other obviousfocal wall motion abnormalities. Right Ventricle: The right ventricle is borderline dilated. The right ventricular systolic function is normal. Atria: Both atria are normal in size. There is no Doppler evidence angelica interatrial shunt. Mitral Valve: The mitral valve leaflets appear normal. There is noevidence of stenosis, fluttering, or prolapse. There is no mitral valve stenosis.There is mild mitral regurgitation. Aortic Valve: The aortic valve is trileaflet. The aortic valve openswell. There is no aortic valve stenosis. There is trace aortic regurgitation. Tricuspid Valve: The tricuspid valve is normal. There is tracetricuspid regurgitation. The right ventricular systolic pressure is estimated to beat least 19 mmHg based on an estimated right atrial pressure of 3 mm Hg. Pulmonic Valve: The pulmonic valve leaflets are thin and pliable;valve motion is normal. There is a trace or physiologic amount of pulmonic regurgitation. Great Vessels: The aortic root is mildly dilated. The ascending aortais moderately enlarged. The aortic arch is mildly enlarged. The pulmonaryartery is normal size. The IVC is of normal diameter and collapses greater than50% with a sniff. This suggests a low right atrial pressure of 3 mm Hg. Pericardium/ Pleura There is no pericardial effusion. There is nopleural effusion. MMode/2D Measurements & Calculations LVIDd: 4.8 cm AoV Openin.7 cm LVIDs: 3.8 cm LVOT diam: 2.7 cm IVSd: 1.1 cm Ao root diam: 3.9 cm LVPWd: 0.98 cm asc Aorta Diam: 4.1 cm LV dickson. diameter/BSA (cm/m^2): 2.1 LV sys. diameter/BSA (cm/m^2): 1.6 FS: 21.4 % EPSS: 0.48 cm LA A2 area: 16.8 cm2 RA long axis: 5.2 cm LA A4 area: 18.1 cm2 RA area: 14.0 cm2 LA length (vol): 4.7 cm RA vol: 32.3 ml LA vol: 55.0 ml RA : 13.9 ml/m2 LA vol index: 23.7 ml/m2 TAPSE: 2.1 cm IVC diam: 1.6 cm Doppler Measurements & Calculations Ao V2 max: 86.2 cm/sec LVOT Max Markus: 79.1 cm/sec Ao V2 mean: 65.6 cm/sec LV V1 max P.5 mmHg Ao V2 VTI: 19.3 cm LV V1 VTI: 14.4 cm Ao max P.0 mmHg Ao mean P.8 mmHg ZACH(I,D): 4.1 cm2 MV E max markus: 44.5 cm/sec ZACH(V,D): 5.1 cm2 MV A max markus: 69.3 cm/sec ZACH indexed to BSA (cm^2/m^2): 1.8 MV E/A: 0.64 sev ratio: 0.74 Med Peak E' Markus: 5.0 cm/sec E/E' med: 8.9 Lat Peak E' Markus: 6.2 cm/sec E/E' lat: 7.2 E/e' average: 8.1 MV dec time: 0.26 sec TR max markus: 202.5 cm/sec MV mean P.48 mmHg TR max P.4 mmHg MVA(VTI): 5.1 cm2 Pulm A Revs Markus: 28.1 cm/sec MV V2 mean: 30.6 cm/sec MV V2 VTI: 15.6 cm SV(LVOT): 80.0 ml Electronically signed by: Lonny Sherman Reading Physician:04/16/2023 10:27 AM Ethan Riley DO [facility] ECHO PROCEDU RES * (ABNORMAL) CK and CK-MB (04/16/2023 4:44 AM PDT) CK, Total, Serum/Plasma 580(H) 20 - 200 U/L LAB CHEMISTRY METHOD 04/16/2023 5:33 AM PDT [facility] CK-MB Index, Ser/Juany 3.1 0.0 - 5.0 % 04/16/2023 5:33 AM PDT [facility] CK-MB, Serum/Plasma 18.2(HC) 0.2 - 7.7 ng/mL LAB CHEMISTRY METHOD 04/16/2023 5:33 AM [facility] Blood Venous blood / Unknown Venipuncture / Unknown 04/16/2023 4:44 AM PDT 04/16/2023 5:10 AM PDT Lonny Fried MD LAB BLOOD ORDERA BLES [facility] [address] [place] [address], * (ABNORMAL) Complete blood count with diff (04/16/2023 4:43 AM PDT) WBC Auto 7.8 3.8 - 10.1 x10e3/uL 04/16/2023 5:04 AM [facility] RBC 4.54 4.40 - 5.80 x10e6/uL 04/16/2023 5:04 AM [facility] Hemoglobin 14.2 13.8 - 17.2 g/dL 04/16/2023 5:04 AM [facility] Hematocrit 42.7 41.0 - 50.0 % 04/16/2023 5:04 AM [facility] MCV 94 81 - 100 fL 04/16/2023 5:04 AM [facility] MCH 31.3 27.0 - 35.0 pg 04/16/2023 5:04 AM [facility] MCHC 33.3 32.0 - 37.0 g/dL 04/16/2023 5:04 AM [facility] RDW 12.0(L) 12.3 - 15.4 % 04/16/2023 5:04 AM [facility] Platelets 182 150 - 400 x10e3/uL 04/16/2023 5:04 AM [facility] MPV 10.2 7.4 - 10.4 fL 04/16/2023 5:04 AM [facility] NRBC % 0 0 /100 WBCs 04/16/2023 5:04 AM [facility] Abs. NRBC 0.0 x10e3/uL 04/16/2023 5:04 AM [facility] % Neutrophils 66 % 04/16/2023 5:04 AM PDT [facility] % Lymphocytes 21 % 04/16/2023 5:04 AM PDT [facility] % Monocytes 11 % 04/16/2023 5:04 AM [facility] % Eosinophils 2 % 04/16/2023 5:04 AM PDT [facility] % Basophils 1 % 04/16/2023 5:04 AM PDT [facility] Abs. Neutrophils 5.1 1.6 - 6.9 x10e3/uL 04/16/2023 5:04 AM [facility] Abs. Lymphocytes 1.6 1.1 - 4.8 x10e3/uL 04/16/2023 5:04 AM [facility] Abs. Monocytes 0.8 0.0 - 1.0 x10e3/uL 04/16/2023 5:04 AM [facility] Abs. Eosinophils 0.2 0.0 - 0.5 x10e3/uL 04/16/2023 5:04 AM [facility] Abs. Basophils 0.0 0.0 - 0.4 x10e3/uL 04/16/2023 5:04 AM [facility] Abs. Neutrophils (Auto) 5,100.0 1,600.0 - 6,900.0 /uL 04/16/2023 5:04 AM [facility] Blood Venous blood / Unknown Venipuncture / Unknown 04/16/2023 4:43 AM PDT 04/16/2023 5:01 AM PDT Lauren De Leon MD LAB BLOOD ORDERABLES [facility] [address] [place] [address], * (ABNORMAL) CK and CK-MB (04/15/2023 11:25 PM PDT) CK, Total, Serum/Plasma 721(H) 20 - 200 U/L LAB CHEMISTRY METHOD 04/16/2023 1:03 AM [facility] CK-MB Index, Ser/Juany 4.1 0.0 - 5.0 % 04/16/2023 1:03 AM PDT [facility] CK-MB, Serum/Plasma 29.9(HC) 0.2 - 7.7 ng/mL LAB CHEMISTRY METHOD 04/16/2023 1:03 AM PDT [facility] Blood Venous blood / Unknown Venipuncture / Unknown 04/15/2023 11:25 PM PDT 04/16/2023 12:06 AM PDT Lonny Fried MD LAB BLOOD ORDERA BLES [facility] [address] [place] [address], * (ABNORMAL) CK and CK-MB (04/15/2023 6:02 PM PDT) CK, Total, Serum/Plasma 928(H) 20 - 200 U/L LAB CHEMISTRY METHOD 04/15/2023 6:51 PM PDT [facility] CK-MB Index, Ser/Juany 5.7(H) 0.0 - 5.0 % 04/15/2023 6:51 PM PDT [facility] CK-MB, Serum/Plasma 53.2(HC) 0.2 - 7.7 ng/mL LAB CHEMISTRY METHOD 04/15/2023 6:51 PM PDT [facility] Blood Venous blood / Unknown Venipuncture / Unknown 04/15/2023 6:02 PM PDT 04/15/2023 6:17 PM PDT Lonny Fried MD LAB BLOOD ORDERA BLES [facility] [address] [place] [address], * Triiodothyronine, free (04/15/2023 2:25 PM PDT) FT3, Serum/Plasma 3.59 2.91 - 4.70 pg/mL LAB CHEMISTRY METHOD 04/15/2023 6:04 PM PDT [facility] Blood Venous blood / Unknown Venipuncture / Unknown 04/15/2023 2:25 PM PDT 04/15/2023 2:31 PM PDT Ethan Riley DO LAB BLOOD ORDERABLES [facility] [address] [place] [address], * T4+Free T4 (04/15/2023 2:25 PM PDT) Free T4 1.10 0.82 - 1.77 ng/dL 04/17/2023 12:07 AM PDT [facility] Thyroxine (T4) 6.2 4.5 - 12.0 ug/dL 04/17/2023 12:07 AM PDT [facility] Venous blood / Unknown Venipuncture / Unknown 04/15/2023 2:25 PM PDT 04/15/2023 2:31 PM PDT Narrative [facility] - 04/17/2023 12:07 AM PDT Performed at: ??01 - [facility] [place] [address] ??[place] [address], [place], [place] ??[id number] [employer]: Bob Felix MD, Phone: ??[phone] Ethan Riley DO LAB BLOOD ORDERABLES [facility] [address] [address], * (ABNORMAL) Troponin with reflex to CK and CK-MB (04/15/2023 2:18 PM PDT) Troponin I, Serum/Plasma 39.300(HC ) <0.034 ng/mL LAB CHEMISTRY METHOD 04/15/2023 3:32 PM PDT [facility] Blood Venous blood / Unknown Venipuncture / Unknown 04/15/2023 2:18 PM PDT 04/15/2023 3:00 PM PDT Ethan Riley DO LAB BLOOD ORDERABLES [facility] [address] [place] [address], * (ABNORMAL) CK and CK-MB (04/15/2023 2:18 PM PDT) CK, Total, Serum/Plasma 1,114(H) 20 - 200 U/L LAB CHEMISTRY METHOD 04/15/2023 3:37 PM PDT [facility] CK-MB Index, Ser/Juany 6.1(H) 0.0 - 5.0 % 04/15/2023 3:37 PM PDT [facility] CK-MB, Serum/Plasma 67.5(HC) 0.2 - 7.7 ng/mL LAB CHEMISTRY METHOD 04/15/2023 3:37 PM PDT [facility] Blood Venous blood / Unknown Venipuncture / Unknown 04/15/2023 2:18 PM PDT 04/15/2023 3:00 PM PDT Lonny Fried MD LAB BLOOD ORDERA BLES Performing Organization Address City/[facility]/ZIP Co de Phone Number [facility] [address] [place] [address], * (ABNORMAL) CK and CK-MB (04/15/2023 6:06 AM PDT) CK, Total, Serum/Plasma 2,114(H) 20 - 200 U/L LAB CHEMISTRY METHOD 04/15/2023 7:33 AM PDT [facility] CK-MB Index, Ser/Juany 6.5(H) 0.0 - 5.0 % 04/15/2023 7:33 AM PDT [facility] CK-MB, Serum/Plasma 138.0(HC) 0.2 - 7.7 ng/mL LAB CHEMISTRY METHOD 04/15/2023 7:33 AM PDT [facility] Blood Venous blood / Unknown Venipuncture / Unknown 04/15/2023 6:06 AM PDT 04/15/2023 6:34 AM PDT Lonny Fried MD LAB BLOOD ORDERA BLES Performing Organization Address City/[facility]/ZIP Co de Phone Number [facility] [address] [place] [address], * Magnesium (04/15/2023 6:06 AM PDT) [facility] Magnesium, Serum/Plasma 1.9 1.6 - 2.4 mg/dL LAB CHEMISTRY METHOD 04/15/2023 7:07 AM PDT [facility] Blood Venous blood / Unknown Venipuncture / Unknown 04/15/2023 6:06 AM PDT 04/15/2023 6:34 AM PDT Lauren De Anda MD LAB BLOOD ORDERABLES Performing Organization Address [facility] Co de Phone Number [facility] [address] [place] [address], * (ABNORMAL) Complete blood count with diff (04/15/2023 6:06 AM PDT) [facility] WBC Auto 8.5 3.8 - 10.1 x10e3/uL 04/15/2023 6:45 AM [facility] RBC 4.58 4.40 - 5.80 x10e6/uL 04/15/2023 6:45 AM [facility] Hemoglobin 14.4 13.8 - 17.2 g/dL 04/15/2023 6:45 AM [facility] Hematocrit 44.1 41.0 - 50.0 % 04/15/2023 6:45 AM [facility] MCV 96 81 - 100 fL 04/15/2023 6:45 AM [facility] MCH 31.4 27.0 - 35.0 pg 04/15/2023 6:45 AM [facility] MCHC 32.7 32.0 - 37.0 g/dL 04/15/2023 6:45 AM [facility] RDW 12.0(L) 12.3 - 15.4 % 04/15/2023 6:45 AM PDT [facility] Platelets 185 150 - 400 x10e3/uL 04/15/2023 6:45 AM PDT [facility] MPV 10.4 7.4 - 10.4 fL 04/15/2023 6:45 AM PDT [facility] NRBC % 0 0 /100 WBCs 04/15/2023 6:45 AM [facility] Abs. NRBC 0.0 x10e3/uL 04/15/2023 6:45 AM [facility] % Neutrophils 77 % 04/15/2023 6:45 AM [facility] % Lymphocytes 14 % 04/15/2023 6:45 AM [facility] % Monocytes 8 % 04/15/2023 6:45 AM [facility] % Eosinophils 1 % 04/15/2023 6:45 AM [facility] % Basophils 0 % 04/15/2023 6:45 AM [facility] Abs. Neutrophils 6.5 1.6 - 6.9 x10e3/uL 04/15/2023 6:45 AM [facility] Abs. Lymphocytes 1.2 1.1 - 4.8 x10e3/uL 04/15/2023 6:45 AM [facility] Abs. Monocytes 0.7 0.0 - 1.0 x10e3/uL 04/15/2023 6:45 AM [facility] Abs. Eosinophils 0.0 0.0 - 0.5 x10e3/uL 04/15/2023 6:45 AM [facility] Abs. Basophils 0.0 0.0 - 0.4 x10e3/uL 04/15/2023 6:45 AM [facility] Abs. Neutrophils (Auto) 6,500.0 1,600.0 - 6,900.0 /uL 04/15/2023 6:45 AM [facility] Blood Venous blood / Unknown Venipuncture / Unknown 04/15/2023 6:06 AM PDT 04/15/2023 6:35 AM PDT Lauren De Leon MD LAB BLOOD ORDERABLES [facility] [address] [place] [address], * (ABNORMAL) Lipid panel (04/15/2023 6:06 AM PDT) Triglycerides Level, Serum/Plasma 112 <150 (NCEP reference range for fasting specimens) mg/dL LAB CHEMISTRY METHOD 04/15/2023 7:07 AM PDT [facility] Total Cholesterol, Serum/Plasma 144 <200 (Reference Range for fasting specimens) mg/dL LAB CHEMISTRY METHOD 04/15/2023 7:07 AM [facility] LDL Cholesterol, Serum/Plasma, Calculated 85 <100 mg/dL 04/15/2023 7:07 AM [facility] HDL Cholesterol, Serum/Plasma 37(L) >=60 (NCEP reference range for fasting specimens) mg/dL LAB CHEMISTRY METHOD 04/15/2023 7:07 AM [facility] VLDL Cholesterol, Serum/Plasma 22 No Reference Range Established mg/dL 04/15/2023 7:07 AM [facility] CHOL/HDL Ratio, Serum/Plasma 3.9 No Reference Range Established 04/15/2023 7:07 AM [facility] Cholesterol Ratio (LDL/HDL), Serum/Plasma 2.3 No Reference Range Established ratio units 04/15/2023 7:07 AM [facility] Non-HDL Cholesterol, Serum/Plasma 107 <130 mg/dl 04/15/2023 7:07 AM [facility] Blood Venous blood / Unknown Venipuncture / Unknown 04/15/2023 6:06 AM PDT 04/15/2023 6:34 AM PDT Narrative [facility] - 04/15/2023 7:07 AM PDT ?NATIONAL CHOLESTEROL GUIDELINES [facility] ([facility]) guidelines for classification, testing and management of cholesterol levels in adults over 20 years of age. This new classification creates three categories of risk for coronary heart disease, regardless of age or sex, according to total and LDL cholesterol levels: ? Based on total cholesterol level Desirable ?<200 mg/dl Borderline-high ?200-239 mg/dl High ? >=240 mg/dl ? Based on cholesterol ratio CHD RISK ? CHOL/HDL RATIO ? MALE ?FEMALE 0.5 x Average ?3.4 ?3.3 1.0 x Average ?5.0 ?4.4 2.0 x Average ?9.6 ?7.1 3.0 x Average ?13.5 ? 11.0 Lonny Fried MD LAB BLOOD [facility] Organization Address City/State/ZIP Co de Phone Number [facility] [address] [place] [address], * (ABNORMAL) Basic metabolic panel (04/15/2023 6:06 AM [facility]) Sodium, Serum/Plasma 138 135 - 145 mmol/L LAB CHEMISTRY METHOD 04/15/2023 7:08 AM [facility] Potassium, Serum/Plasma 5.2 3.5 - 5.2 mmol/L LAB CHEMISTRY METHOD 04/15/2023 7:08 AM [facility] Chloride, Serum/Plasma 109(H) 98 - 107 mmol/L LAB CHEMISTRY METHOD 04/15/2023 7:08 AM [facility] CO2, Serum/Plasma 22 22 - 30 mmol/L LAB CHEMISTRY METHOD 04/15/2023 7:08 AM [facility] Anion Gap, Serum/Plasma 7 3 - 11 mmol/L 04/15/2023 7:08 AM [facility] Urea Nitrogen, Serum/Plasma 15.4 8.0 - 27.0 mg/dL LAB CHEMISTRY METHOD 04/15/2023 7:08 AM [facility] Creatinine, Serum/Plasma 0.80 0.76 - 1.27 mg/dL LAB CHEMISTRY METHOD 04/15/2023 7:08 AM [facility] Glucose, Serum/Plasma 113(H) 65 - 99 mg/dL LAB CHEMISTRY METHOD 04/15/2023 7:08 AM [facility] Calcium, Serum/Plasma 8.1(L) 8.5 - 10.1 mg/dL LAB CHEMISTRY METHOD 04/15/2023 7:08 AM [facility] eGFR, Serum/Plasma (CKD-EPI 2020) 93 >60 (CKD-EPI 2020) mL/min/1. 73 m2 04/15/2023 7:08 AM [facility] Comment:eGFR calculation has been updated by recommendation of the National Kidney [employer] (NKF) without the race variable. This change was made on September 18, 2022 BUN/Creatinine Ratio, Serum/Plasma 19.3 6.0 - 24.0 04/15/2023 7:08 AM [facility] Blood Venous blood / Unknown Venipuncture / Unknown 04/15/2023 6:06 AM PDT 04/15/2023 6:34 AM PDT Lonny Fried MD LAB BLOOD ORDERA BLES Performing Organization Address City/[facility] Co de Phone Number [facility] [address] [place] [address], * (ABNORMAL) Troponin with reflex to CK and CK-MB (04/15/2023 6:06 AM PDT) Pathologist [facility] Troponin I, Serum/Plasma 69.300(HC ) <0.034 ng/mL LAB CHEMISTRY METHOD 04/15/2023 7:35 AM PDT [facility] Blood Venous blood / Unknown Venipuncture / Unknown 04/15/2023 6:06 AM PDT 04/15/2023 6:34 AM PDT Lonny Fried MD LAB BLOOD ORDERA BLES Performing Organization Address [facility] Co de Phone Number [facility] [address] [place] [address], [place] [phone] * (ABNORMAL) CK and CK-MB (04/14/2023 11:46 PM PDT) Pathologist [facility] CK, Total, Serum/Plasma 2,361(H) 20 - 200 U/L LAB CHEMISTRY METHOD 04/15/2023 1:32 AM PDT [facility] CK-MB Index, Ser/Juany 5.8 % LAB CHEMISTRY METHOD 04/15/2023 1:32 AM PDT [facility] CK-MB, Serum/Plasma 137.0(HC) 0.2 - 7.7 ng/mL LAB CHEMISTRY METHOD 04/15/2023 1:32 AM PDT [facility] Blood Venous blood / Unknown Venipuncture / Unknown 04/14/2023 11:46 PM PDT 04/14/2023 11:55 PM PDT Lonny Fried MD LAB BLOOD ORDERA BLES Performing Organization Address City/[facility] Co de Phone Number [facility] [address] [place] [address], [place] [phone] * Troponin with reflex to CK and CK-MB (04/14/2023 11:46 PM PDT) Troponin I, Serum/Plasma >80.000 ng/mL 04/15/2023 12:44 AM PDT [facility] Comment:Unable to rerun due to quantity not sufficient.Notified Jesenia Edward RN. Blood Venous blood / Unknown Venipuncture / Unknown 04/14/2023 11:46 PM PDT 04/14/2023 11:55 PM PDT Lonny Fried MD LAB BLOOD ORDERA BLES Performing Organization Address City/[facility]/ZIP Co de Phone Number [facility] [address] [place] [address], * ECG 12 lead- now if intervention performed (04/14/2023 11:22 PM PDT) Pathologist [facility] HR 61 bpm SRH IECG RR 976 ms SRH IECG MO 206 ms SRH IECG QRSD 102 ms SRH IECG QT 444 ms SRH IECG QTc 449 ms SRH IECG QRS 61 deg SRH IECG T 79 deg SRH IECG Impression - ABNORMAL ECG - SRH IECG Impression Sinus rhythm SRH IECG Impression Borderline Prolonged MO interval SRH IECG Impression Anteroseptal infarct, old SRH IECG Impression Nonspecific repol abnormality, anterior leads [facility] IECG Impression When compared with ECG of 14-Apr-2023 20:11:19, [facility] I[facility]G Impression Significant change in rhythm [facility] I[facility]G Impression New or worsened ischemia or infarction [facility] I[facility]G 04/14/2023 11:2 2 PM PDT Lonny Fried MD ECG ORDERABLES Performing Organization Address [facility] Co de Phone Number [facility] IECG * SI LEFT HEART CATH (04/14/2023 9:23 PM PDT) Anatomical Region Laterality Modality Left Catheterization/ Interventional Lab Narrative 04/14/2023 9:53 PM PDT Cardiac Cath Report Date of Service 04/14/23 PATIENT PROFILE: The patient is a ??73 y.o. male who presented with NSTEMI, high risk. PROCEDURE: 1. ??Moderate sedation for 52 minutes. 2. ??Retrograde left heart catheterization. 3. ??Selective coronary angiogram. 4. ??Balloon angioplasty and stenting to the 2nd diagonal branch VASCULAR CLOSURE DEVICE: StarClose. COMPLICATIONS: None. METHOD: ??Moderate sedation was achieved with IV Versed and IV fentanyl under my direct supervision for 52 minutes. Retrograde left heart catheterization was performed from the right groin under 1% lidocaine local anesthesia using a 6-Zimbabwean sheath. Selective coronary angiogram was performed in multiple projections by using JL4 and JR4 catheters. Heparin 100 units/kg and Prasugrel 60 mg were given. ??A 6-Zimbabwean JL4 guide was advanced to the left coronary ostium. ??A Runthrough wire was placed inside the second diagonal branch. ??The lesion was pre-dilated with a 2.5 x 15 mm balloon. ??A Xience 2.75 x 18 mm stent was placed inside the lesion and deployed at 12 atmospheres for 20 seconds. ??A 3.0 x 8 mm balloon was used for post stent deployment dilation in the proximal portion of the stent. ??Final angiogram was obtained. Following sheath removal, hemostasis was achieved by using Starclose device. ??He was transferred to CCU in good condition. TOTAL CONTRAST USED: 70 cc. FLUOROSCOPY TIME: 4.8 minutes. TOTAL RADIATION DOSE: ??536 mGy. RESULTS: 1. ??Selective coronary angiogram: ?a. ?Left main coronary artery is short and normal. ?b. ?? The left anterior descending artery is transapical and has 40% proximal stenosis. ??The first diagonal branch is large and has 30% proximal stenosis. ??The second diagonal branch is occluded at its origin. ?c. ?? The circumflex artery has minor ectasia with 10% stenosis. ?d. ?? The dominant right coronary artery has minor 10 to 20% stenosis. 2. ??Balloon angioplasty and stenting was performed to the occluded second diagonal branch lesion by deploying 1 drug-eluting stent (2.75 x 18 mm) to achieve an excellent angiographic result with GISELA-3 flow distally. 3. ??There is no gradient across the aortic valve on catheter withdrawal. 5. ??Aortic pressure is 114/57 mmHg. ??Left ventricular pressure is 114/16 mmHg. 6. ??Left ventricular end-diastolic pressure is 46 mmHg. CONCLUSION: 1. ??Occluded second lateral branch. 2. ??This was successfully treated with 1 drug-eluting stent. ?PRE: 100% stenosis with GISELA 0 ?POST: 0% stenosis with GISELA 3 3. ??40% proximal left interesting artery stenosis 4. ??Left ventricular end-diastolic pressure is 46 mmHg. Lonny Fried MD Lonny Fried MD RIS [facility] SI VERONICA PARKER * XR CHEST 1 VIEW (04/14/2023 8:21 PM PDT) Anatomical Region Laterality Modality Body N/A Radiographic Rosio ging 04/14/2023 8:14 PM PDT Narrative 04/14/2023 8:14 [place] [address] PATIENT NAME: JAVI ROBERTSON : 1950 GENDER: M EXAM DATE: 04/14/2023 ?? 19:50 ORDERED FROM: [facility] ORDERING PHYSICIAN: LAUREN DE LEON CC: ??-- ??- ??- ??- CONTRAST: ? READING STATION ID: [id number] mGy: PROCEDURE: ??XR CHEST 1 VIEW INDICATIONS: ??chest pain TECHNIQUE: ??One view of the chest was acquired. ?? COMPARISON: ??None. FINDINGS: ?? Surgical changes and devices: ??None. ?? Lungs and pleura: ??Lungs are clear. ??No pleural effusions or pneumothorax. ?? Mediastinum: ??Mediastinal contours appear normal. ??Heart size is normal. ?? Bones and chest wall: ??No suspicious bony lesions. ??Overlying soft tissues appear unremarkable. ?? IMPRESSION: ??Portable chest within normal limits for age. Approved by: Viktor Rudd M.D. on 04/14/2023 at 19:14 ?? Procedure Note Viktor Rudd MD - 04/14/2023 [place]. [address] PATIENT NAME: JAVI ROBERTSON : 1950 GENDER: M EXAM DATE: 04/14/2023 19:50 ORDERED FROM: [facility] ORDERING PHYSICIAN: LAUREN DE LEON CC: -- - - - CONTRAST: READING STATION ID: [id number] mGy: PROCEDURE: XR CHEST 1 VIEW INDICATIONS: chest pain TECHNIQUE: One view of the chest was acquired. COMPARISON: None. FINDINGS: Surgical changes and devices: None. Lungs and pleura: Lungs are clear. No pleural effusions or pneumothorax. Mediastinum: Mediastinal contours appear normal. Heart size is normal. Bones and chest wall: No suspicious bony lesions. Overlying soft tissuesappear unremarkable. IMPRESSION: Portable chest within normal limits for age. Approved by: Viktor Rudd M.D. on 04/14/2023 at 19:14 Lauren De Leon MD RIS [facility] XR PROCEDURE S * (ABNORMAL) Thyroid stimulating hormone (04/14/2023 8:17 PM PDT) TSH, Serum/Plasma 7.050(H) 0.450 - 4.500 uIU/mL LAB CHEMISTRY METHOD 04/14/2023 10:39 PM PDT [facility] Blood Venous blood / Unknown Venipuncture / Unknown 04/14/2023 8:17 PM PDT 04/14/2023 8:18 PM PDT Lonny Fried MD LAB BLOOD ORDERA BLES [facility] [address] [place] [address], * Hold Rodriguez Top - NaFluoride/Potassium OX (04/14/2023 8:17 PM PDT) Extra Tube Hold for add-ons. 04/14/2023 10:01 PM PDT [facility] Comment:Auto resulted. Blood Venous blood / Unknown Venipuncture / Unknown 04/14/2023 8:17 PM PDT 04/14/2023 8:18 PM PDT Ordering Provider LAB BLOOD ORDERABLES Performing Organization Address City/[facility]/ZIP Co de Phone Number [facility] [address] [place] [address], * Hold Red Top (04/14/2023 8:17 PM PDT) Extra Tube Hold for add-ons. 04/14/2023 10:01 PM PDT [facility] Comment:Auto resulted. Blood Venous blood / Unknown Venipuncture / Unknown 04/14/2023 8:17 PM PDT 04/14/2023 8:18 PM PDT Ordering Provider LAB BLOOD ORDERABLES Performing Organization Address City/[facility] Co de Phone Number [facility] [address] [place] [address], * Hold Rodriguez Top - NaFluoride/Potassium OX (04/14/2023 8:13 PM PDT) Extra Tube Hold for add-ons. 04/14/2023 11:02 PM PDT [facility] Comment:Auto resulted. Blood Venous blood / Unknown 04/14/2023 8:13 PM PDT 04/14/2023 9:40 PM PDT Ordering Provider LAB BLOOD ORDERABLES Performing Organization Address City/[facility] Co de Phone Number [facility] [address] [place] [address], [place] [phone] * Hold Red Top (04/14/2023 8:13 PM PDT) Extra Tube Hold for add-ons. 04/14/2023 10:01 PM PDT [facility] Comment:Auto resulted. Blood Venous blood / Unknown 04/14/2023 8:13 PM PDT 04/14/2023 9:40 PM PDT Ordering Provider LAB BLOOD ORDERABLES Performing Organization Address City/[facility]/ZIP Co de Phone Number [facility] [address] [place] [address], * ECG 12 lead (04/14/2023 8:11 PM PDT) HR 67 bpm [facility] I[facility]G RR 900 ms [facility] I[facility]G MO 167 ms [facility] I[facility]G QRSD 91 ms [facility] I[facility]G QT 410 ms [facility] I[facility]G QTc 432 ms [facility] I[facility] QRS 37 deg [facility] I[facility]G T -54 deg [facility] I[facility]G Impression - ABNORMAL ECG - [facility] IECG Impression Sinus rhythm [facility] IECG Impression Repol abnrm, global ischemia, diffuse leads [facility] IECG Impression When compared with ECG of 14-Apr-2023 19:56:44, [facility] IECG Impression Significant change in rhythm: previously ectopic atrial rhythm [facility] IECG 04/14/2023 8:11 PM PDT Lauren De Leon MD ECG ORDERABLES Performing Organization Address [facility] Co de Phone Number [facility] IECG * ECG 12 lead (04/14/2023 7:56 PM PDT) HR 70 bpm [facility] I[facility]G RR 861 ms [facility] IECG MO [facility] IECG QRSD 93 ms [facility] I[facility]G QT 410 ms [facility] IECG QTc 442 ms [facility] I[facility]G QRS 33 deg [facility] I[facility]G T -44 deg [facility] IECG Impression - ABNORMAL ECG - [facility] IECG Impression Ectopic atrial rhythm [facility] IECG Impression Repol abnrm, global ischemia, diffuse leads [facility] IECG Impression When compared with ECG of 14-Apr-2023 19:39:41, [facility] IECG Impression Significant change in rhythm: previously sinus [facility] IECG 04/14/2023 7:56 PM PDT Lauren De Leon MD ECG ORDERABLES [facility] I[facility]G * Hemoglobin A1c (04/14/2023 7:48 PM PDT) Pathologist [facility] Hemoglobin A1c 5.4 4.8 - 5.6 % LAB CHEMISTRY METHOD 04/14/2023 10:10 PM PDT [facility] Comment: Reference Ranges: Normal: 4.8% to 5.6% Prediabetes: 5.7% to 6.4% Diabetes: 6.5% or higher Estimated Average Glucose (eAG) 108 No Reference Range Established mg/dL 04/14/2023 10:10 PM PDT [facility] Blood Venous blood / Unknown Venipuncture / Unknown 04/14/2023 7:48 PM PDT 04/14/2023 7:48 PM PDT Narrative [facility] - 04/14/2023 10:10 PM PDT Specimens containing high amount of Hgb F (>7%) may result in lower than expected %A1c values. Lonny Fried MD LAB BLOOD ORDERA BLES [facility] [address] [phone], * (ABNORMAL) Complete blood count with diff (04/14/2023 7:48 PM PDT) Pathologist [facility] WBC Auto 10.5(H) 3.8 - 10.1 x10e3/uL 04/14/2023 7:59 PM PDT [facility] RBC 4.80 4.40 - 5.80 x10e6/uL 04/14/2023 7:59 PM PDT [facility] Hemoglobin 15.1 13.8 - 17.2 g/dL 04/14/2023 7:59 PM PDT [facility] Hematocrit 43.2 41.0 - 50.0 % 04/14/2023 7:59 PM PDT [facility] MCV 90 81 - 100 fL 04/14/2023 7:59 PM [facility] MCH 31.5 27.0 - 35.0 pg 04/14/2023 7:59 PM [facility] MCHC 35.0 32.0 - 37.0 g/dL 04/14/2023 7:59 PM [facility] RDW 11.9(L) 12.3 - 15.4 % 04/14/2023 7:59 PM [facility] Platelets 245 150 - 400 x10e3/uL 04/14/2023 7:59 PM [facility] MPV 10.4 7.4 - 10.4 fL 04/14/2023 7:59 PM [facility] NRBC % 0 0 /100 WBCs 04/14/2023 7:59 PM [facility] Abs. NRBC 0.0 x10e3/uL 04/14/2023 7:59 PM [facility] % Neutrophils 61 % 04/14/2023 7:59 PM [facility] % Lymphocytes 27 % 04/14/2023 7:59 PM [facility] % Monocytes 9 % 04/14/2023 7:59 PM [facility] % Eosinophils 2 % 04/14/2023 7:59 PM [facility] % Basophils 1 % 04/14/2023 7:59 PM [facility] Abs. Neutrophils 6.4 1.6 - 6.9 x10e3/uL 04/14/2023 7:59 PM [facility] Abs. Lymphocytes 2.9 1.1 - 4.8 x10e3/uL 04/14/2023 7:59 PM [facility] Abs. Monocytes 0.9 0.0 - 1.0 x10e3/uL 04/14/2023 7:59 PM [facility] Abs. Eosinophils 0.2 0.0 - 0.5 x10e3/uL 04/14/2023 7:59 PM [facility] Abs. Basophils 0.1 0.0 - 0.4 x10e3/uL 04/14/2023 7:59 PM [facility] Abs. Neutrophils (Auto) 6,400.0 1,600.0 - 6,900.0 /uL 04/14/2023 7:59 PM PDT [facility] Blood Venous blood / Unknown Venipuncture / Unknown 04/14/2023 7:48 PM PDT 04/14/2023 7:48 PM PDT Lauren De Leon MD LAB BLOOD ORDERABLES Performing Organization Address [facility] Co de Phone Number [facility] [address] [place] [address], * (ABNORMAL) Troponin (04/14/2023 7:48 PM PDT) Troponin I, Serum/Plasma 0.309(HC) <0.034 ng/mL LAB CHEMISTRY METHOD 04/14/2023 8:29 PM PDT [facility] Blood Venous blood / Unknown Venipuncture / Unknown 04/14/2023 7:48 PM PDT 04/14/2023 7:48 PM PDT Lauren De Leon MD LAB BLOOD ORDERABLES Performing Organization Address [facility] de Phone Number [facility] [place] [address], * Protime-INR (04/14/2023 7:48 PM PDT) Prothrombin Time 12.9 11.9 - 15.0 sec 04/14/2023 8:13 PM PDT [facility] INR 1.0 0.8 - 1.2 04/14/2023 8:13 PM PDT [facility] Comment: Therapeutic Ranges: Low intensity therapy ? INR 1.5- 2.0 ?? Mod. intensity therapy ? INR 2.0 - 3.0 High intensity therapy (1) INR 2.5 - 3.5 High intensity therapy (2) INR 3.0 - 4.0 Critical value INR ? INR >5.9 ?? Blood Venous blood / Unknown Venipuncture / Unknown 04/14/2023 7:48 PM PDT 04/14/2023 7:48 PM PDT Lauren De Leon MD LAB BLOOD ORDERABLES Performing Organization Address City/[facility] Co de Phone Number [facility] [address] [place] [address], * (ABNORMAL) D-dimer (04/14/2023 7:48 PM PDT) Pathologist [facility] D-Dimer (ug/mL FEU) 1.36(H) 0.27 - 0.52 ug/mL FEU 04/14/2023 8:20 PM PDT [facility] Comment: The primary value of this quantitative assay relates to its negative predictive value (i.e. exclusion) of pulmonary embolism/deep vein thrombosis/DIC. ?? Elevated levels of d-dimer may also occur with: , age, cancer, inflammation, liver disease, post-op, infection, hematoma, coronary disease, peripheral arteriopathy, bleeding disorders and thrombolytic treatment. Results should be correlated with other clinical and radiological data. Testing Methodology: Latex Immunoassay Note: D-Dimer units of measure revised June 30, 2020. ??Units previously reported in mg/L FEU, now reported in ug/mL FEU. Blood Venous blood / Unknown Venipuncture / Unknown 04/14/2023 7:48 PM PDT 04/14/2023 7:48 PM PDT Lauren De Leon MD LAB BLOOD ORDERABLES Performing Organization Address City/[facility]/ZIP Co de Phone Number [facility] [address] [place] [address], * BNP (04/14/2023 7:48 PM PDT) NT-proBNP, Serum/Plasma 50 <=900 pg/mL LAB CHEMISTRY METHOD 04/14/2023 8:24 PM PDT [facility] Comment:Note: Reference Ra nges revised November 28, 2022 Blood Venous blood / Unknown Venipuncture / Unknown 04/14/2023 7:48 PM PDT 04/14/2023 7:48 PM PDT Lauren De Leon MD LAB BLOOD ORDERABLES [facility] [address] [place] [address], * (ABNORMAL) CMP (04/14/2023 7:48 PM PDT) Sodium, Serum/Plasma 141 135 - 145 mmol/L LAB CHEMISTRY METHOD 04/14/2023 8:24 PM [facility] Potassium, Serum/Plasma 3.1(L) 3.5 - 5.2 mmol/L LAB CHEMISTRY METHOD 04/14/2023 8:24 PM [facility] Chloride, Serum/Plasma 108(H) 98 - 107 mmol/L LAB CHEMISTRY METHOD 04/14/2023 8:24 PM [facility] CO2, Serum/Plasma 20(L) 22 - 30 mmol/L LAB CHEMISTRY METHOD 04/14/2023 8:24 PM [facility] Anion Gap, Serum/Plasma 13(H) 3 - 11 mmol/L 04/14/2023 8:24 PM [facility] Urea Nitrogen, Serum/Plasma 19.1 8.0 - 27.0 mg/dL LAB CHEMISTRY METHOD 04/14/2023 8:24 PM [facility] Creatinine, Serum/Plasma 1.00 0.76 - 1.27 mg/dL LAB CHEMISTRY METHOD 04/14/2023 8:24 PM [facility] Glucose, Serum/Plasma 126(H) 65 - 99 mg/dL LAB CHEMISTRY METHOD 04/14/2023 8:24 PM [facility] Calcium, Serum/Plasma 8.7 8.5 - 10.1 mg/dL LAB CHEMISTRY METHOD 04/14/2023 8:24 PM [facility] AST, Serum/Plasma 34 17 - 59 U/L LAB CHEMISTRY METHOD 04/14/2023 8:24 PM [facility] ALT, Serum/Plasma 23 <50 U/L LAB CHEMISTRY METHOD 04/14/2023 8:24 PM [facility] Alkaline Phosphatase, Serum/Plasma 102 25 - 160 U/L LAB CHEMISTRY METHOD 04/14/2023 8:24 PM PDT [facility] Total Protein, Serum/Plasma 7.5 6.3 - 8.2 g/dL LAB CHEMISTRY METHOD 04/14/2023 8:24 PM PDT [facility] eGFR, Serum/Plasma (CKD-EPI 2020) 79 >60 (CKD-EPI 2020) mL/min/1. 73 m2 04/14/2023 8:24 PM PDT [facility] Comment:eGFR calculation has been updated by recommendation of the National Kidney [employer] (NKF) without the race variable. This change was made on September 18, 2022 Albumin, Serum/Plasma 4.0 3.4 - 5.0 g/dL LAB CHEMISTRY METHOD 04/14/2023 8:24 PM PDT [facility] Bilirubin, Total, Serum/Plasma 0.4 0.2 - 1.3 mg/dL LAB CHEMISTRY METHOD 04/14/2023 8:24 PM PDT [facility] BUN/Creatinine Ratio, Serum/Plasma 19.1 6.0 - 24.0 04/14/2023 8:24 PM PDT [facility] Blood Venous blood / Unknown Venipuncture / Unknown 04/14/2023 7:48 PM PDT 04/14/2023 7:48 PM PDT Lauren De Leon MD LAB BLOOD ORDERABLES Performing Organization Address City/State/[facility] Co de Phone Number [facility] [address] [place] [address], * ECG 12 lead (04/14/2023 7:39 PM PDT) HR 72 bpm [facility] I[facility]G RR 852 ms [facility] IECG MO 159 ms [facility] IECG QRSD 91 ms [facility] I[facility]G QT 392 ms [facility] I[facility]G QTc 425 ms [facility] I[facility]G QRS 39 deg [facility] I[facility]G T -55 deg [facility] IECG Impression - ABNORMAL ECG - [facility] IECG Impression Sinus rhythm [facility] IECG Impression Multiple ventricular premature complexes [facility] IECG Impression Repol abnrm suggests ischemia, diffuse leads [facility] IECG Impression No previous ECG available for comparison [facility] IECG 04/14/2023 7:39 PM PDT Lauren De Leon MD ECG ORDERABLES Performing Organization Address [facility] Co de Phone Number [facility] IECG * Critical Care (04/14/2023 7:36 PM PDT) Narrative [facility] (CLIA [id number]) - 04/14/2023 7:36 PM PDT Lauren De Leon MD ? 04/14/2023 10:06 PM Critical Care Performed by: Lauren De Leon MD Authorized by: Lauren De Leon MD ?? Critical care provider statement: ??Critical care time (minutes): ??45 ??Critical care time was exclusive of: ??Separately billable procedures and treating other patients and teaching time ??Critical care was necessary to treat or prevent imminent or life-threatening deterioration of the following conditions: ??Cardiac failure ??Critical care was time spent personally by me on the following activities: ??Blood draw for specimens, ordering and performing treatments and interventions, development of treatment plan with patient or surrogate, ordering and review of laboratory studies, ordering and review of radiographic studies, evaluation of patient's response to treatment, pulse oximetry, re-evaluation of patient's condition, examination of patient, review of old charts, obtaining history from patient or surrogate and discussions with consultants ??I assumed direction of critical care for this patient from another provider in my specialty: no ?Care discussed with: admitting provider ?? Lauren De Leon MD IN CLINIC/BEDSIDE OR DERABLES Performing Organization Address [facility] Co de Phone Number [facility] (CLIA [id number]) [address] [place] [address], * TELEMETRY EXTERNAL RESULTS (04/14/2023) Narrative 04/14/2023 Ordered by an unspecified provider. Nataliia Prakash MD [facility] PROCEDURES * TELEMETRY EXTERNAL RESULTS (04/14/2023) Narrative 04/14/2023 Ordered by an unspecified provider. Provider Dwain MEDEIROS [facility] PROCEDURES documented in this encounter Visit Diagnoses Diagnosis Non-ST elevation (NSTEMI) myocardial infarction ([facility])- Primary NSTEMI (non-ST elevated myocardial infarction) ([facility]) Acute myocardial infarction, subendocardial infarction, episode of care unspecified ACS (acute coronary syndrome) ([facility]) Intermediate coronary syndrome Chest pain, unspecified type * Initial Assessments - Shirlene Schwartz RN - 04/15/2023 10:16 AM PDT CASE MANAGEMENT : INITIAL ASSESSMENT Data: Per EMR review, patient is a 73 y.o. male with Payor: MEDICARE / Plan: MEDICARE PART A AND B / Product Type: *No Product type* / . PCP is Hector Aguirre MD. Advance directives are not completed- Information Declined. Pt admitted on 04/14/2023 for ACS (acute coronary syndrome) ([facility]) [I24.9] NSTEMI (non-ST elevated myocardial infarction) ([facility]) [I21.4]. Extended Emergency Contact Information Primary Emergency Contact: Miltonsavana RobertsonAlis Relation: Other In communication with provider, discharge needs have not been identified. Social Work consults to coordinate discharge services have not been ordered by provider at this time. manager ambulatory met with couple At bedside; role explained and contact information provided. Pt resides in [place] with his spouse in a private home. Pt does not have a history with home health and/or senior living services. Patient lives with his in a private two story home in [place]. Independent at baseline, no DME and still drives. Confirms PCP and insurance as listed. No HH or SNF history. Ails will provide transportation home at discharge. Assessment: alert and oriented x4. Plan: Anticipates patient will discharge home once medically stable. Case management will continue to follow throughout hospital stay. Shirlene Schwartz RN 04/15/23 1014 Discharge Planning Is there a Discharge Planning order? No Chart Reviewed Yes EHR Review The patient has been identified as high risk of requiring posthospital services, Case Management will continue to follow. Source of Information Patient Initial DC Planning Assessment Yes Lives with Spouse/significant other Support Systems Spouse/significant other;Children Level of [place] Independent in all regards Assistance Needed None Living Arrangements Private residence Home Layout Two level Home Care Services No Patient expects to be discharged to: HOME Has a discharge transport plan been identified? Yes Who will transport you at time of discharge? Barriers to Discharge No barriers Insurance Coverage Prescription Drug Coverage Patient has prescription drug coverage Are you currenty receiving any VA benefits? No Anticipated Discharge Needs Anticipated Discharge Needs None needed Anticipated Discharge Destination Home with family Equipment (DME) Recommendations None needed Who can help/be your primary caregiver at discharge? None needed Discharge Plan Complete Yes documented in this encounter Administered Medications Inactive Administered Medications - up to 3 most recent administrations Medication Order MAR Action Action Date Dose Rate Site amiodarone (CORDARONE) 50 mg/mL injection - ADS Override Pull Starting on 04/14/23 at 2047, For 1 dose, Created by cabinet override Given 04/14/2023 8:51 PM PDT 150 mg aspirin chewable tablet 81 mg 81 mg, oral, Daily, First dose on 04/15/23 at 0900 Given 04/16/2023 8:45 AM PDT 81 mg Given 04/15/2023 8:52 AM PDT 81 mg atropine injection (abboject) 1 mg 1 mg, intravenous, Every 5 min PRN, bradycardia, As directed by Provider or ACLS Protocol for symptomatic bradycardia, Starting on 04/14/23 at 2157, Postprocedure (SI), Repeat as directed. carvediloL (COREG) tablet 3.125 mg 3.125 mg, oral, 2 times daily with meals, First dose on 04/15/23 at 0900, Hold for heart rate less than 45 or 1st degree AV Block, SBP less than 90, or symptomatic wheezing. Notify Provider if drug held. Given 04/16/2023 8:46 AM PDT 3.12 5 mg Given 04/15/2023 5:55 PM PDT 3.125 mg Given 04/15/2023 8:49 AM PDT 3.125 mg clopidogreL (PLAVIX) tablet 75 mg 75 mg, oral, Daily, First dose on 04/15/23 at 0900 Given 04/16/2023 8:46 AM PDT 75 mg Given 04/15/2023 8:49 AM PDT 75 mg fentaNYL (SUBLIMAZE) injection intravenous, As needed, Starting on 04/14/23 at 2050, Intra-op Given 04/14/2023 8:52 PM PDT 50 mcg Given 04/14/2023 8:50 PM PDT 50 mcg flumazeniL (ROMAZICON) injection 0.2 mg 0.2 mg, intravenous, As needed, for suspected benzodiazepine overdose, Starting on 04/14/23 at 2157, Postprocedure (SI), every 20 min prn for suspected benzodiazepine overdose furosemide (LASIX) injection 20 mg 20 mg, intravenous, Once, On 04/15/23 at 0800, For 1 dose Given 04/15/2023 8:49 AM PDT 20 mg heparin (porcine) injection 5,000 Units 5,000 Units, intravenous, Once, On 04/14/23 at 1947, For 1 dose Given 04/14/2023 7:50 PM PDT 5,000 Units heparin (porcine) injection 5,000 Units 5,000 Units, subcutaneous, Every 8 hours scheduled, First dose on 04/15/23 at 0600 Given 04/16/2023 6:32 AM PDT 5,000 Units Left Upper Abdomen Given 04/15/2023 9:15 PM PDT 5,000 Units R ight Upper Abdomen Given 04/15/2023 1:41 PM PDT 5,000 Units L eft Lower Abdomen heparin (porcine) injection intravenous, As needed, Starting on 04/14/23 at 2051, Intra-op Given 04/14/2023 8:52 PM PDT 11,000 Units heparin 25,000 units in 500 mL 0.45% NS (premix) 1,000 Units/hr (20 mL/hr), intravenous, Titrated, Starting on 04/14/23 at 1947, Indication of use: ACS New Bag 04/14/2023 7:53 PM PDT 1,000 Units/ hr 20 mL/hr iopamidoL (ISOVUE-370) 370 mg iodine /mL (76 %) injection As needed, Starting on 04/14/23 at 2123, Intra-op Given 04/14/2023 9:24 PM PDT 70 mL lidocaine (XYLOCAINE) 10 mg/mL (1 %) injection 1 mL 1 mL, infiltration, Once as needed, for use as anesthetic for IV start, Starting on 04/14/23 at 9, For 1 dose lisinopriL (PRINIVIL) tablet 5 mg 5 mg, oral, Daily, First dose on 04/15/23 at 0900 Given 04/16/2023 8:46 AM PDT 5 mg Given 04/15/2023 8:49 AM PDT 5 mg magnesium oxide (MAG-OX) tablet 400 mg 400 mg, oral, Daily, First dose on 04/15/23 at 1400 Given 04/16/2023 8:46 AM PDT 400 mg Given 04/15/2023 1:41 PM PDT 400 mg melatonin tablet 5 mg 5 mg, oral, Nightly PRN, sleep, Starting on 04/15/23 at 2036 Given 04/15/2023 9:15 PM PDT 5 mg metoprolol tartrate (LOPRESSOR) split tablet 12.5 mg 12.5 mg, oral, 2 times daily, First dose on 04/16/23 at 2100 midazolam (VERSED) injection intravenous, As needed, Starting on 04/14/23 at 2048, Intra-op Given 04/14/2023 9:11 PM PDT 1 mg Given 04/14/2023 8:48 PM PDT 1 mg morphine injection 4 mg 4 mg, intravenous, Once, On 04/14/23 at 1950, For 1 dose Given 04/14/2023 7:50 PM PDT 4 mg naloxone (NARCAN) injection 0.4 mg 0.4 mg, intravenous, As needed, opioid reversal, respiratory depression, Starting on 04/14/23 at 2157, Postprocedure (SI) ondansetron (ZOFRAN) injection 4 mg 4 mg, intravenous, Every 8 hours PRN, nausea, vomiting, Starting on 04/14/23 at 2219, 1st line antiemetic *Give IV if UNABLE to take orally. ondansetron (ZOFRAN) injection intravenous, As needed, Starting on 04/14/23 at 2102, Intra-op Given 04/14/2023 9:02 PM PDT 4 mg ondansetron ODT (ZOFRAN-ODT) disintegrating tablet 4 mg 4 mg, oral, Every 8 hours PRN, nausea, vomiting, Starting on 04/14/23 at 2219, 1st line antiemetic * Use first if patient ABLE to take PO meds potassium chloride (KLOR-CON M20) CR tablet 40 mEq 40 mEq, oral, 3 times daily, First dose on 04/14/23 at 2129 Given 04/14/2023 10:12 PM PDT 40 mEq prasugreL (EFFIENT) tablet oral, As needed, Starting on 04/14/23 at 2107, Intra-op Given 04/14/2023 9:07 PM PDT 60 mg rosuvastatin (CRESTOR) tablet 20 mg 20 mg, oral, Nightly, First dose on 04/14/23 at 2128 Given 04/15/2023 9:16 PM PDT 20 mg Given 04/14/2023 10:12 PM PDT 20 mg sodium chloride (NS) 0.9 % infusion 50 mL/hr, intravenous, Continuous, Starting on 04/14/23 at 2200, For 4 hours, Postprocedure (SI), then saline lock until patient ready for discharge. New Bag 04/14/2023 10:12 PM PDT 50 mL/hr 50 mL/hr sodium chloride 0.9 % flush 10 mL 10 mL, intravenous, As needed, line care, Starting on 04/14/23 at 2219 spironolactone (ALDACTONE) tablet 25 mg 25 mg, oral, Daily, First dose on 04/15/23 at 0900 Given 04/16/2023 8:46 AM PDT 25 mg Given 04/15/2023 8:49 AM PDT 25 mg documented in this encounter Active and Recently Administered Medications Times are shown in PDT. Scheduled Medication Order 04/14/2023 04/15/2023 04/16/2023 aspirin chewable tablet 81 mg 81 mg, oral, Daily, First dose on 04/15/23 at 0900 0852 (Given - Provider: Man Gonzalez RN) 0845 (Given - Provider: Julieth Galloway, RN) carvediloL (COREG) tablet 3.125 mg (CANCELED) 3.125 mg, oral, 2 times daily with meals, First dose on 04/15/23 at 0900, Hold for heart rate less than 45 or 1st degree AV Block, SBP less than 90, or symptomatic wheezing. Notify Provider if drug held. 0849 (Given - Provider: Man Gonzalez RN)1755 (Given - Provider: Man Gonzalez RN) 0846 (Given - Provider: Julieth Galloway, UMM) clopidogreL (PLAVIX) tablet 75 mg 75 mg, oral, Daily, First dose on 04/15/23 at 0900 0849 (Given - Provider: Man Gonzalez RN) 0846 (Given - Provider: Julieth Galloway, RN) furosemide (LASIX) injection 20 mg (COMPLETED) 20 mg, intravenous, Once, On 04/15/23 at 0800, For 1 dose 0849 (Given - Provider: Man Gonzalez RN) heparin (porcine) injection 5,000 Units (COMPLETED) 5,000 Units, intravenous, Once, On 04/14/23 at 1947, For 1 dose 1950 (Given - Provider: Lsiseth Kelly RN) heparin (porcine) injection 5,000 Units 5,000 Units, subcutaneous, Every 8 hours scheduled, First dose on 04/15/23 at 0600 0610 (Given - Provider: Jesenia Edward RN)1341 (Given - Provider: Man Gonzalez RN)2115 (Given - Provider: Andreina Salas) 0632 (Given - Provider: Andreina Salas)1400 (Not Given - Provider: Julieth Galloway, UMM - Reason: Patient/family refused) lisinopriL (PRINIVIL) tablet 5 mg 5 mg, oral, Daily, First dose on 04/15/23 at 0900 0849 (Given - Provider: Man Gonzalez RN) 0846 (Given - Provider: Julieth Galloway, RN) magnesium oxide (MAG-OX) tablet 400 mg 400 mg, oral, Daily, First dose on 04/15/23 at 1400 1341 (Given - Provider: Man Gonzalez RN) 0846 (Given - Provider: Julieth Galloway, UMM) metoprolol tartrate (LOPRESSOR) split tablet 12.5 mg 12.5 mg, oral, 2 times daily, First dose on Sun04/16/23 at 2100 morphine injection 4 mg (COMPLETED) 4 mg, intravenous, Once, On 04/14/23 at 1950, For 1 dose 1950 (Given - Provider: Soha Saab, UMM) potassium chloride (KLOR-CON M20) CR tablet 40 mEq 40 mEq, oral, 3 times daily, First dose on 04/14/23 at 2129 2212 (Given - Provider: Jesenia Edward RN) 0745 (Held by provider - Provider: Anabelle Devlin MD - Reason: Other)0900 (Dose Auto Held - Provider: Anabelle Devlin MD)1500 (Dose Auto Held - Provider: Anabelle Devlin MD)2100 (Dose Auto Held - Provider: Anabelle Devlin MD) 0900 (Dose Auto Held - Provider: Anabelle Devlin MD)1500 (Dose Auto Held - Provider: Anabelle Devlin MD)1708 (Unheld by provider - Provider: [facility], Automatic) rosuvastatin (CRESTOR) tablet 20 mg 20 mg, oral, Nightly, First dose on 04/14/23 at 2127 2212 (Given - Provider: Jesenia Edward RN) 2115 (Given - Provider: Andreina Salas) spironolactone (ALDACTONE) tablet 25 mg 25 mg, oral, Daily, First dose on 04/15/23 at 0900 0849 (Given - Provider: Man Gonzalez RN) 0846 (Given - Provider: Julieth Galloway RN) Continuous Medication Order 04/14/2023 04/15/2023 04/16/2023 heparin 25,000 units in 500 mL 0.45% NS (premix) (CANCELED) 1,000 Units/hr (20 mL/hr), intravenous, Titrated, Starting on 04/14/23 at 1947, Indication of use: ACS 3 (New Bag - Provider: Lisseth Kelly RN) 0916 (Stopped - Provider: Man Gonzalez RN) sodium chloride (NS) 0.9 % infusion () 50 mL/hr, intravenous, Continuous, Starting on 04/14/23 at 2200, For 4 hours, Postprocedure (SI), then saline lock until patient ready for discharge. 221 (New Bag - Provider: Jesenia Edward RN) 0630 (Stopped - Provider: Man Gonzalez RN) PRN Medication Order 04/14/2023 04/15/2023 04/16/2023 acetaminophen (TYLENOL) tablet 650 mg 650 mg, oral, Every 4 hours PRN, mild pain, (1-3), Starting on 04/14/23 at 2219, total Acetaminophen dose from ALL sources including combination products should not exceed 4,000 mg in a 24 hour period. Can be given concurrently with ibuprofen. atropine injection (abboject) 1 mg 1 mg, intravenous, Every 5 min PRN, bradycardia, As directed by Provider or ACLS Protocol for symptomatic bradycardia, Starting on 04/14/23 at 2157, Postprocedure (SI), Repeat as directed. fentaNYL (SUBLIMAZE) injection (COMPLETED) intravenous, As needed, Starting on 04/14/23 at 2049, Intra-op 2049 (Given - Provider: Aniket Ingram RN)2051 (Given - Provider: Aniket Ingram RN) flumazeniL (ROMAZICON) injection 0.2 mg 0.2 mg, intravenous, As needed, for suspected benzodiazepine overdose, Starting on 04/14/23 at 2156, Postprocedure (SI), every 20 min prn for suspected benzodiazepine overdose heparin (porcine) injection (COMPLETED) intravenous, As needed, Starting on 04/14/23 at 2051, Intra-op 2051 (Given - Provider: Aniket Ingram RN) iopamidoL (ISOVUE-370) 370 mg iodine /mL (76 %) injection (COMPLETED) As needed, Starting on 04/14/23 at 2123, Intra-op 2123 (Given - Provider: Lonny Fried MD) lidocaine (XYLOCAINE) 10 mg/mL (1 %) injection 1 mL(Linked Group 1) 1 mL, infiltration, Once as needed, for use as anesthetic for IV start, Starting on 04/14/23 at 2218, For 1 dose melatonin tablet 5 mg 5 mg, oral, Nightly PRN, sleep, Starting on 04/15/23 at 2035 2114 (Given - Provider: Andreina Salas) midazolam (VERSED) injection (COMPLETED) intravenous, As needed, Starting on 04/14/23 at 2047, Intra-op 2047 (Given - Provider: Aniket Ingram RN)2110 (Given - Provider: Aniket Ingram RN) naloxone (NARCAN) injection 0.04 mg 0.04 mg, intravenous, As needed, opioid reversal, respiratory depression, respiratory rate less than 8, Starting on 04/14/23 at 2219, Every 1 Minute PRN For Opiate Reversal 1. Draw up 0.4 mg (1 mL) in 10 mL syringe, and dilute with 9 mL of saline for an naloxone concentration of 0.04 mg/mL. 2. Give 0.04 mg (1 mL) IV push flushing solution into vein and repeat every min until resp rate greater than 10 per min and level of sedation improved. 3. Notify Provider STAT., Indications: opioid-induced respiratory depression naloxone (NARCAN) injection 0.4 mg 0.4 mg, intravenous, As needed, opioid reversal, respiratory depression, Starting on 04/14/23 at 2157, Postprocedure (SI) ondansetron (ZOFRAN) injection 4 mg(Linked Group 2) 4 mg, intravenous, Every 8 hours PRN, nausea, vomiting, Starting on 04/14/23 at 2219, 1st line antiemetic *Give IV if UNABLE to take orally. ondansetron (ZOFRAN) injection (COMPLETED) intravenous, As needed, Starting on 04/14/23 at 2102, Intra-op 210 (Given - Provider: Aniket Ingram RN) ondansetron ODT (ZOFRAN-ODT) disintegrating tablet 4 mg(Linked Group 2) 4 mg, oral, Every 8 hours PRN, nausea, vomiting, Starting on 04/14/23 at 2219, 1st line antiemetic * Use first if patient ABLE to take PO meds polyethylene glycol (GLYCOLAX) packet 17 g 17 g, oral, Daily PRN, constipation, Starting on 04/15/23 at 0000, Initiate on hospital day 2 if patient hasn't had bowel movement. Continue with ambulation and fluids. hold for loose stool., Indications: constipation prasugreL (EFFIENT) tablet (COMPLETED) oral, As needed, Starting on 04/14/23 at 2107, Intra-op 210 (Given - Provider: Aniket Ingram, UMM) senna (SENOKOT) tablet 8.6 mg 8.6 mg (1 tablet), oral, 2 times daily PRN, constipation, Starting on 04/15/23 at 0000, Initiate on hospital day 2 if patient hasn't had bowel movement. Continue with ambulation and fluids. hold for loose stools., Indications: constipation sodium chloride 0.9 % flush 10 mL(Linked Group 1) 10 mL, intravenous, As needed, line care, Starting on 04/14/23 at 2219 No Frequency Medication Order 04/14/2023 04/15/2023 04/16/2023 amiodarone (CORDARONE) 50 mg/mL injection - ADS Override Pull (COMPLETED) Starting on 04/14/23 at 2047, For 1 dose, Created by cabinet override 2050 (Given - Provider: Aniket Ingram, RN) Linked Groups Order Group 1: Insert peripheral IV (CANCELED) Once, On 04/14/23 at 2220, For 1 occurrence And lidocaine (XYLOCAINE) 10 mg/mL (1 %) injection 1 mLJump to med 1 mL, infiltration, Once as needed, for use as anesthetic for IV start, Starting on 04/14/23 at 2219, For 1 dose And Maintain IV access (CANCELED) Until discontinued, Starting on 04/14/23 at 2220, Until Specified And Saline lock IV (CANCELED) Once, On 04/14/23 at 2220, For 1 occurrence And sodium chloride 0.9 % flush 10 mLJump to med 10 mL, intravenous, As needed, line care, Starting on 04/14/23 at 2219 Group 2: ondansetron ODT (ZOFRAN-ODT) disintegrating tablet 4 mgJump to med 4 mg, oral, Every 8 hours PRN, nausea, vomiting, Starting on 04/14/23 at 2219
1st line antiemetic * Use first if patient ABLE to take PO meds
Or ondansetron (ZOFRAN) injection 4 mgJump to med 4 mg, intravenous, Every 8 hours PRN, nausea, vomiting, Starting on 04/14/23 at 2219
1st line antiemetic *Give IV if UNABLE to take orally.
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
== END 2023-08-23 12:15 ==
LOC: CAR 10:15
PROVIDERS: PCP Internal Medicine; Referring Provider Internal Medicine Interventional Cardiology; Visit Provider Internal Medicine Interventional Cardiology
DX: I21.4 Non-ST elevation (NSTEMI) myocardial infarction (principal)
CPT/HCPCS: 93798

== ENCOUNTER → 2023-08-27 06:42 | Outpatient (CLI) | payer MEDICARE, OTHER, SELFPAY ==
[2022-11-08 09:36] VITALS: BMI 31.8
[2023-08-27 09:00] LABS: HEMOLYSIS < 15 (0-50); Potassium 4.4 mmol/L (3.4-5.1)
[2023-08-27 09:01] LABS: BUN Creatinine Ratio 16.2 (6-22); Blood Urea Nitrogen 16 mg/dL (9-20); Calcium 8.7 mg/dL (8.4-10.2); Carbon Dioxide 27 mmol/L (22-32); Chloride 104 mmol/L (98-107); Cholesterol 122 mg/dL (140-199); Estimated Glomerular Filt Rate > 60 mL/min (>60); Glucose 95 mg/dL (80-110); HDL Cholesterol 40 mg/dL (40-60); LDL Cholesterol Calculated 68 mg/dL (<100); Sodium 139 mmol/L (137-145); Triglycerides 70 mg/dL (35-150)
== END ==
PROVIDERS: PCP Internal Medicine; Referring Provider Internal Medicine Interventional Cardiology; Visit Provider Internal Medicine Interventional Cardiology
DX: I25.2 Old myocardial infarction (principal)
CPT/HCPCS: 36415; 80048; 80061

== ENCOUNTER → 2024-02-14 06:49 | Outpatient (CLI) | payer MEDICARE, OTHER, SELFPAY ==
[2022-11-08 09:36] VITALS: BMI 31.8
[2024-02-14 08:12] LABS: Alanine Aminotransferase 22 IU/L (<50); Albumin 3.9 g/dL (3.5-5.0); Albumin Globulin Ratio 1.2 (1.0-2.8); Alkaline Phosphatase 117 U/L (38-126); Aspartate Aminotransferase 26 IU/L (17-59); BUN Creatinine Ratio 24.2 (6-22); Bilirubin Total 0.6 mg/dL (0.2-1.3); Blood Urea Nitrogen 22 mg/dL (9-20); Calcium 8.9 mg/dL (8.4-10.2); Carbon Dioxide 26 mmol/L (22-32); Chloride 111 mmol/L (98-107); Cholesterol 123 mg/dL (140-199); Estimated Glomerular Filt Rate > 60 mL/min (>60); Globulin 3.3 g/dL (1.7-4.1); Glucose 103 mg/dL (80-110); HDL Cholesterol 40 mg/dL (40-60); HEMOLYSIS < 15 (0-50); LDL Cholesterol Calculated 69 mg/dL (<100); Potassium 4.2 mmol/L (3.4-5.1); Sodium 142 mmol/L (137-145); Total Protein 7.2 g/dL (6.3-8.2); Triglycerides 72 mg/dL (35-150)
== END ==
PROVIDERS: PCP Internal Medicine; Referring Provider Internal Medicine Interventional Cardiology; Visit Provider Internal Medicine Interventional Cardiology
DX: I25.2 Old myocardial infarction (principal); E78.2 Mixed hyperlipidemia
CPT/HCPCS: 36415; 80053; 80061

== ENCOUNTER → 2024-05-20 08:59 | Outpatient (CLI) | payer MEDICARE, OTHER, SELFPAY ==
[2022-11-08 09:36] VITALS: BMI 31.8
[2024-05-21 17:20] LABS: Aspartate Aminotransferase 26 IU/L (17-59); Blood Urea Nitrogen 20 mg/dL (9-20); Calcium 9.2 mg/dL (8.4-10.2); Carbon Dioxide 29 mmol/L (22-32); Chloride 104 mmol/L (98-107); Cholesterol 120 mg/dL (140-199); Estimated Glomerular Filt Rate > 60 mL/min (>60); Glucose 94 mg/dL (80-110); HDL Cholesterol 39 mg/dL (40-60); HEMOLYSIS < 15 (0-50); LDL Cholesterol Calculated 66 mg/dL (<100); Potassium 5.3 mmol/L (3.4-5.1); Sodium 139 mmol/L (137-145); Triglycerides 74 mg/dL (35-150)
[2024-05-21 17:51] LABS: Prostate Specific Antigen 1.06 ng/mL (0.10-4.00)
== END ==
PROVIDERS: PCP Internal Medicine; Referring Provider Internal Medicine; Visit Provider Internal Medicine
DX: I50.22 Chronic systolic (congestive) heart failure (principal); N40.1 Benign prostatic hyperplasia with lower urinary tract symptoms; N13.8 Other obstructive and reflux uropathy; E78.2 Mixed hyperlipidemia; I25.118 Atherosclerotic heart disease of native coronary artery with other forms of angina pectoris; E03.9 Hypothyroidism, unspecified; R91.1 Solitary pulmonary nodule; E66.9 Obesity, unspecified; Z68.30 Body mass index [BMI] 30.0-30.9, adult
CPT/HCPCS: 36415; 80048; 80061; 84153; 84450

== ENCOUNTER → 2024-09-19 07:34 | Outpatient (CLI) | payer MEDICARE, OTHER, SELFPAY ==
[2022-11-08 09:36] VITALS: BMI 31.8
--- NOTE | 2024-09-19 07:35 | DI.NM.S_ITS ---
PROCEDURE: NM EXERCISE TREADMILL NON NUC COMPARISON: None. INDICATIONS: HX OF NON-ST ELEV MYOCARDIAL INFARC FINDINGS: The patient exercised for 7 minutes and 31 seconds reaching 110% of maximum predicted heart rate. Appropriate BP response to exercise. Good exercise tolerance with TEAGAN -22%. No angina and no diagnostic ST changes during exercise or recovery. Occasional PVCs and frequent PACs during recovery. IMPRESSION: Low risk, normal treadmill ECG only stress test from inducible ischemia standpoint. Good exercise tolerance with TEAGAN -22%. Occasional PVCs and frequent PACs during recovery. Dictated by: Tunde Chaney MD on 09/19/2024 at 16:45 Approved by: Tunde Chaney MD on 09/19/2024 at 16:47
== END ==
LOC: NUCM 07:34
PROVIDERS: PCP Internal Medicine; Referring Provider Internal Medicine Interventional Cardiology; Visit Provider Internal Medicine Interventional Cardiology
DX: I25.2 Old myocardial infarction (principal); Z87.891 Personal history of nicotine dependence
CPT/HCPCS: 93017

== ENCOUNTER → 2024-09-23 | Outpatient (CLI) | payer MEDICARE, OTHER, SELFPAY ==
[2022-11-08 09:36] VITALS: BMI 31.8
--- NOTE | 2024-09-23 08:04 | DI.ECHO.S_ITS ---
[facility] : : [address] : : [place] : : [id number] : : Phone: [phone] Echocardiogram Report + + :Name: JAVI ROBERTSON Study Date: 09/23/2024 Height: 72 in : :[facility] ReadingLocation: Weight: 225 lb : : Gender: Male BSA: 2.2 m2 : :: 1950 Age: 74 yrs BP: 109/77 mmHg: :Reason For Study: ELEVATED BNP : :Ordering Physician: : :NANDO SUGGS Performed By: Mara Weiner : :Referring: NANDO SUGGS : + + Interpretation Summary Normal left ventricle size with ejection fraction 50-55%. There is anterolateral wall mild hypokinesis. The right ventricle is mildly dilated. The right ventricular systolic function is normal. Mild mitral regurgitation. The ascending aorta is mildly enlarged. Comparison is made with the echocardiogram of 04/16/2023, LV function has improved. Procedure: A two-dimensional transthoracic echocardiogram with color flow and Doppler was performed. The study quality was technically adequate. Comparison is made with the echocardiogram of 04/16/2023. The patient was in sinus bradycardia with heart rates between 56-63 bpm during the exam. Left Ventricle: The left ventricle is normal in size and wall thickness. The ejection fraction is estimated to be 50-55%. There is anterolateral wall mild hypokinesis. There are no other obvious focal wall motion abnormalities. Diastolic parameters suggest probable normal left ventricular diastolic function and normal filling pressures. Right Ventricle: The right ventricle is mildly dilated. The right ventricular systolic function is normal. Atria: The left atrial size is normal. Right atrial size is normal. There is no Doppler evidence for an interatrial shunt. Mitral Valve: The mitral valve leaflets appear to open well. There is mild mitral regurgitation. Aortic Valve: The aortic valve is trileaflet. The aortic valve opens well. There is no aortic valve stenosis. No aortic regurgitation is present. Tricuspid Valve: The tricuspid valve is normal. There is trace tricuspid regurgitation. The right ventricular systolic pressure is estimated to be at least 20 mmHg based on an estimated right atrial pressure of 3 mm Hg. Pulmonic Valve: The pulmonic valve is not well seen, but is grossly normal. There is trace pulmonic regurgitation. Great Vessels: The aortic root is borderline dilated. The ascending aorta is mildly enlarged. The inferior vena cava was not well visualized. Pericardium/ Pleura There is no pericardial effusion. There is no pleural effusion. MMode/2D Measurements & Calculations LVIDd: 4.7 cm LVOT diam: 2.0 cm LVIDs: 3.7 cm Ao root diam: 4.1 cm FS: 21.5 % asc Aorta Diam: 3.9 cm EPSS: 0.63 cm Ao Arch Diam (Prox Trans): 3.5 cm IVSd: 1.0 cm LVPWd: 0.97 cm LV dickson. diameter/BSA (cm/m^2): 2.1 LV sys. diameter/BSA (cm/m^2): 1.6 LA A2 area: 21.0 cm2 RA long axis: 6.1 cm LA A4 area: 16.3 cm2 RA area: 18.4 cm2 LA length (vol): 5.4 cm RA vol: 47.1 ml LA vol: 53.7 ml RA : 21.0 ml/m2 LA vol index: 24.0 ml/m2 RVD1 (basal): 4.3 cm RVD2 (mid): 4.0 cm TAPSE: 2.3 cm Doppler Measurements & Calculations Ao V2 max: 87.7 cm/sec LVOT Max Markus: 88.5 cm/sec Ao V2 mean: 63.2 cm/sec LV V1 max P.1 mmHg Ao max P.1 mmHg LV V1 VTI: 18.5 cm Ao mean P.8 mmHg ZACH(I,D): 3.2 cm2 Ao V2 VTI: 18.4 cm ZACH(V,D): 3.2 cm2 sev ratio: 1.0 ZACH indexed to BSA (cm^2/m^2): 1.4 MV E max markus: 38.6 cm/sec TR max markus: 207.7 cm/sec MV A max markus: 45.2 cm/sec TR max P.3 mmHg MV E/A: 0.85 PA V2 max: 86.4 cm/sec Med Peak E' Markus: 5.4 cm/sec PA V2 mean: 56.2 cm/sec E/E' med: 7.1 PA mean P.4 mmHg Lat Peak E' Markus: 7.2 cm/sec PA pr(Accel): 30.2 mmHg E/E' lat: 5.4 E/e' average: 6.3 MV dec time: 0.31 sec SV(LVOT): 59.0 ml Electronically signed by: Nando Candelario on Reading Physician:09/27/2024 03:08 PM
== END ==
PROVIDERS: PCP Internal Medicine; Referring Provider Internal Medicine Interventional Cardiology; Visit Provider Internal Medicine Interventional Cardiology
DX: I34.0 Nonrheumatic mitral (valve) insufficiency (principal); I77.89 Other specified disorders of arteries and arterioles; I25.2 Old myocardial infarction; Z95.5 Presence of coronary angioplasty implant and graft
CPT/HCPCS: 93306

== ENCOUNTER → 2025-03-19 13:37 | Outpatient (CLI) | payer MEDICARE, OTHER, SELFPAY ==
[2022-11-08 09:36] VITALS: BMI 31.8
--- NOTE | 2025-03-19 13:39 | DI.MRI.S_ITS ---
PROCEDURE: MR LUMBAR SPINE WO CON INDICATIONS: low back pain TECHNIQUE: Noncontrast sagittal T1 spin echo and T2 fast echo, sagittal STIR, and T2 fast spin echo through the lumbar spine. In cases with scoliosis, additional coronal T2 fast spin echo may be performed. COMPARISON: [facility] [place], CR, XR LUMBAR SPINE 2 OR 3 VIEWS, 12/19/2024, 9:27. FINDINGS: Image quality: Diagnostic Alignment and Curvature: There is normal bony alignment. Bone Marrow: Marrow is of normal overall signal. No acute vertebral body compression fractures. Spinal Cord: Conus medullaris terminates at the L1 level. Visualized cord demonstrates normal signal and size. Paraspinous Soft Tissues: No paravertebral masses. T12-L1: Normal appearance. L1-L2: The disc height and disk signal are well-preserved. Mild generalized disc bulge is seen. There is a superimposed central disc protrusion. There is a focal annular fissure seen posteriorly. No significant neural foraminal or central canal narrowing can be seen. L2-L3: The disc height and disk signal are relatively well-preserved. Mild to moderate disc bulge is seen. There is a superimposed central/left disc extrusion. Mild facet joint hypertrophy is seen. Moderate bilateral neural foraminal narrowing is seen. Moderate central canal narrowing is seen. L3-L4: Moderate loss of disc height is seen. Loss of disc signal is seen. Reactive marrow endplate changes are seen posteriorly, which are hyperintense on T1- weighted and T2-weighted imaging and most consistent with fatty metaplasia (Modic type II changes). Moderate generalized disc bulge is seen. There is a superimposed central disc osteophyte protrusion. Moderate facet joint hypertrophy is seen. There is moderate right- sided and at least moderate left-sided neural foraminal narrowing. There is a degree of compression seen upon the exiting left L3 nerve root. Mild central canal narrowing is seen. L4-L5: Moderate loss of disc height is seen. Loss of disc signal is seen. Moderate generalized disc bulge is seen. There is a superimposed central disc protrusion. Moderate facet joint hypertrophy is seen. There is moderate to severe bilateral neural foraminal narrowing seen, with an associated degree of compression seen upon the exiting nerve roots. Moderate central canal narrowing is seen. L5-S1: Mild loss of disc height is seen. Loss of disc signal is seen. Mild generalized disc bulge is seen. There is a superimposed central disc protrusion. Mild facet joint hypertrophy is seen. There is at least moderate right-sided and moderate to severe left-sided neural foraminal narrowing. There is a degree of compression seen upon the exiting nerve roots. Mild central canal narrowing is seen. IMPRESSION: Multiple levels of significant lumbar spine degenerative change can be seen. At the L2-L3 level, there is a mild central/left disc extrusion. Several sites of significant neural foraminal narrowing can be seen, with associated exiting nerve root compression. The Dictated by: José Miguel Glez M.D. on 03/19/2025 at 15:16 Approved by: José Miguel Glez M.D. on 03/19/2025 at 15:19
== END ==
PROVIDERS: PCP Internal Medicine; Referring Provider Orthopaedic Surgery; Visit Provider Physical Medicine & Rehabilitation
DX: M47.816 Spondylosis without myelopathy or radiculopathy, lumbar region (principal); M47.817 Spondylosis without myelopathy or radiculopathy, lumbosacral region; M51.26 Other intervertebral disc displacement, lumbar region; M48.061 Spinal stenosis, lumbar region without neurogenic claudication; M48.07 Spinal stenosis, lumbosacral region
CPT/HCPCS: 72148

== ENCOUNTER → 2025-04-15 10:26 | Outpatient (CLI) | payer MEDICARE, OTHER, SELFPAY ==
[2022-11-08 09:36] VITALS: BMI 31.8
--- NOTE | 2025-04-15 10:27 | DI.RAD.S_ITS ---
PROCEDURE: XR LUMBAR SPINE MIN 4V INDICATIONS: BACK PAIN TECHNIQUE: 5 views of the lumbar spine were acquired, including bilateral oblique views. COMPARISON: [facility], MR, MR LUMBAR SPINE WO CON, 03/19/2025, 13:48. FINDINGS: Bones: 5 nonrib-bearing vertebrae are present. There is normal bony alignment. No vertebral body compression fractures. No suspicious bony lesions. There is moderate disc space narrowing seen at L3-L4 and L4-L5. Lower lumbar spine facet arthropathy is seen. Soft tissues: Overlying bowel gas pattern is normal. No suspicious soft tissue calcifications. Oblique images: No pars defects. IMPRESSION: Lower lumbar spine degenerative changes are seen. No pars defects are seen. Dictated by: José Miguel Glez M.D. on 04/15/2025 at 10:00 Approved by: José Miguel Glez M.D. on 04/15/2025 at 10:01
== END ==
PROVIDERS: PCP Internal Medicine; Referring Provider Physical Medicine & Rehabilitation; Visit Provider Physical Medicine & Rehabilitation
DX: M47.816 Spondylosis without myelopathy or radiculopathy, lumbar region (principal); M54.50 Low back pain, unspecified; G89.29 Other chronic pain; M51.369 Other intervertebral disc degeneration, lumbar region without mention of lumbar back pain or lower extremity pain
CPT/HCPCS: 72110

== ENCOUNTER 2025-05-07 07:18 | Outpatient (CLI) | payer MEDICARE, OTHER, SELFPAY ==
[2022-11-08 09:36] VITALS: BMI 31.8
[2025-05-07 07:55] VITALS: BP 112/72; PULSE 80; RESP 16; TEMP 37; O2SAT 98
[2025-05-07 08:15] VITALS: BP 122/77; PULSE 74; RESP 17
[2025-05-07] MEDS: LIDOCAINE 1% (PF) 5 ML 10 ML INJ (08:22)
[2025-05-07 08:25] VITALS: BP 133/73; PULSE 72; RESP 18; O2SAT 96
--- NOTE | 2025-05-07 12:23 | P.PCN_ITS ---
Date/Time/Diagnoses
--- NOTE | 2025-05-07 12:23 | PM.PROC.IR.1 ---
Date/Time/Diagnoses Date of procedure: 05/07/25 Time of procedure: 08:00 Pre-procedure diagnosis: Lumbar radiculopathy Post-procedure diagnosis: same Procedure Notes Procedure: Interlaminar epidural steroid injection L4-5 Indications: Lumbar radiculopathy Physician: Zac Devries Total sedation minutes: 0 Complications: none Procedure in detail & Post-procedure care: Patient is here for the planned procedure today as noted. No significant change since the last office visit. For additional clinical scenario please see those office notes. Focused exam: Vital signs reviewed as charted on intake. Gen: Well developed. No acute distress. CV: RRR, no M/R/G Chest: Non-labored breathing, CTAB. Psych: Alert and well-oriented. Mood/Affect: normal. Patient suitable for the planned procedure today: Yes === The following procedure was performed in the office today: Lumbar Epidural Steroid Injection with fluoroscopic guidance - Interlaminar approach (05761) Levels Treated: L4-5 Approach: interlaminar Soft tissue: [1% lidocaine 2 mL] Test dose: [1% lidocaine 1 mL] Injectate: 0.75 mL of Depo-Medrol (80mg/mL) in 1.25 mL 1% lidocaine and 1 mL normal saline Fluoroscopy Agent: Isovue 300-M 1.5 mL Notes: Right paramedian approach. 3.5 in 20 gauge Touhy needle utilized and adequate. Preprocedure pain 1/10, postprocedure pain 0/10. Procedure: After discussing the risks, benefits, and alternatives to the procedure, the patient expressed understanding and wished to proceed. The risks include but are not limited to infection, allergic reaction, nerve damage, stroke, paralysis, epidural hematoma, syncope, headache, respiratory or cardiac arrest, spinal cord injury, and scar formation. Informed consent was obtained and all patient questions were answered. The patient was brought to the procedure suite and placed in the prone position. A pre-procedural pause was conducted to verify: correct patient identity, procedure to be performed and as applicable, correct side and site, correct patient position, and any special requirements. Using a paramedian approach from the side noted above, the region overlying the target was localized under fluoroscopic visualization and the soft tissues overlying this structure were infiltrated with the anesthetic listed above. With fluoroscopic guidance, a #20 gauge Tuohy needle (unless otherwise noted) was inserted into the epidural space using a paramedian approach. The epidural space was localized utilizing intermittent multiplanar fluoroscopic guidance and loss of resistance technique. After negative aspiration, the contrast noted above was injected into the epidural space and the flow of contrast was observed, confirming epidural spread without evidence of intravascular or intrathecal spread. Multi-planar radiographs were obtained for documentation purposes. A test dose of lidocaine was injected into the above noted epidural space, and the patient was observed for 30-60 seconds. No sensory deficits were reported and normal lower extremity motor function was noted. Subsequently, the injectate as noted above was administered into the level noted above. The patient tolerated the procedure well and was discharged after an appropriate period of observation. If there are any complications, the patient was instructed to call us. The patient is to follow-up with the requesting provider in 2-3 weeks. This note was compiled using voice recognition software and therefore may contain typos. Please contact the author with any questions or concerns.
== END 2025-05-07 08:30 | disposition home or self-care (01) ==
LOC: RAD 07:19
PROVIDERS: PCP Internal Medicine; Referring Provider Internal Medicine; Visit Provider Physical Medicine & Rehabilitation
DX: M54.16 Radiculopathy, lumbar region (principal)
CPT/HCPCS: 62323; J1010

== ENCOUNTER → 2025-05-21 09:43 | Outpatient (CLI) | payer MEDICARE, OTHER, SELFPAY ==
[2022-11-08 09:36] VITALS: BMI 31.8
[2025-05-21 10:32] LABS: Hematocrit 41.7 % (41-53); Hemoglobin 14.3 g/dL (13.5-17.5); Mean Corpuscular HGB Conc 34.3 % (30-36); Mean Corpuscular Hemoglobin 31.3 PG (26-34); Mean Corpuscular Volume 91.3 fL (80-100); Platelet Count 212 X10^3/uL (150-400)
[2025-05-21 10:50] LABS: Alanine Aminotransferase 14 IU/L (<50); Albumin 4.1 g/dL (3.5-5.0); Albumin Globulin Ratio 1.2 (1.0-2.8); Alkaline Phosphatase 122 U/L (38-126); Blood Urea Nitrogen 17 mg/dL (9-20); Calcium 9.1 mg/dL (8.4-10.2); Carbon Dioxide 26 mmol/L (22-32); Chloride 106 mmol/L (98-107); Cholesterol 97 mg/dL (140-199); Estimated Glomerular Filt Rate > 60 mL/min (>60); Globulin 3.3 g/dL (1.7-4.1); Glucose 101 mg/dL (70-99); HDL Cholesterol 39 mg/dL (40-60); HEMOLYSIS < 15 (0-50); Potassium 5.2 mmol/L (3.4-5.1); Sodium 140 mmol/L (137-145); Total Protein 7.4 g/dL (6.3-8.2); Triglycerides 57 mg/dL (35-150)
[2025-05-21 11:21] LABS: Prostate Specific Antigen 1.21 ng/mL (0.10-4.00)
[2025-05-21 11:28] LABS: TSH w/ Reflex to FT4 3.24 uIU/mL (0.47-4.68)
== END ==
PROVIDERS: PCP Internal Medicine; Referring Provider Internal Medicine; Visit Provider Internal Medicine
DX: I25.118 Atherosclerotic heart disease of native coronary artery with other forms of angina pectoris (principal); N40.1 Benign prostatic hyperplasia with lower urinary tract symptoms; E78.2 Mixed hyperlipidemia; N13.8 Other obstructive and reflux uropathy
CPT/HCPCS: 36415; 80053; 80061; 84153; 84443; 85027

== ENCOUNTER 2025-06-17 07:45 | Outpatient (CLI) | payer MEDICARE, OTHER, SELFPAY ==
[2022-11-08 09:36] VITALS: BMI 31.8
[2025-06-17 09:00] VITALS: BP 119/77; PULSE 61; RESP 16; TEMP 36.2; O2SAT 96
[2025-06-17 09:24] VITALS: BP 107/86; PULSE 76; RESP 16; O2SAT 96
[2025-06-17] MEDS: LIDOCAINE 1% (PF) 5 ML 10 ML INJ (09:28)
[2025-06-17 09:37] VITALS: BP 116/74; PULSE 81; RESP 16; O2SAT 98
--- NOTE | 2025-06-17 12:59 | P.PCN_ITS ---
Date/Time/Diagnoses Date of procedure: 06/17/25 Time of procedure: 09:00 Pre-procedure diagnosis: Lumbosacral radiculopathy Post-procedure diagnosis: same Procedure Notes Procedure: Interlaminar epidural steroid injection L4-5 Indications: Lumbosacral radiculopathy Physician: Zac Devries Total sedation minutes: 0 Complications: none Procedure in detail & Post-procedure care: Patient is here for the planned procedure today as noted. No significant change since the last office visit. For additional clinical scenario please see those office notes. Focused exam: Vital signs reviewed as charted on intake. Gen: Well developed. No acute distress. CV: RRR, no M/R/G Chest: Non-labored breathing, CTAB. Psych: Alert and well-oriented. Mood/Affect: normal. Patient suitable for the planned procedure today: Yes === The following procedure was performed in the office today: Lumbar Epidural Steroid Injection with fluoroscopic guidance - Interlaminar approach (49384) Levels Treated: L4-5 Approach: interlaminar Soft tissue: [1% lidocaine 2 mL] Test dose: [1% lidocaine 1 mL] Injectate: 0.75 mL of Depo-Medrol (80mg/mL) in 1.25 mL 1% lidocaine and 1 mL normal saline Fluoroscopy Agent: Isovue 300-M 1.5 mL Notes: Left paramedian approach. 3.5 in 20 gauge Touhy needle utilized an adequate. Preprocedure pain 5/10, postprocedure pain 0/10. Procedure: After discussing the risks, benefits, and alternatives to the procedu re, the patient expressed understanding and wished to proceed. The risks include but are not limited to infection, allergic reaction, nerve damage, stroke, paralysis, epidural hematoma, syncope, headache, respiratory or cardiac arrest, spinal cord injury, and scar formation. Informed consent was obtained and all patient questions were answered. The patient was brought to the procedure suite and placed in the prone position. A pre-procedural pause was conducted to verify: correct patient identity, procedure to be performed and as applicable, correct side and site, correct patient position, and any special requirements. Using a paramedian approach from the side noted above, the region overlying the target was localized under fluoroscopic visualization and the soft tissues overlying this structure were infiltrated with the anesthetic listed above. With fluoroscopic guidance, a #20 gauge Tuohy needle (unless otherwise noted) was inserted into the epidural space using a paramedian approach. The epidural space was localized utilizing intermittent multiplanar fluoroscopic guidance and loss of resistance technique. After negative aspiration, the contrast noted above was injected into the epidural space and the flow of contrast was observed, confirming epidural spread without evidence of intravascular or intrathecal spread. Multi-planar radiographs were obtained for documentation purposes. A test dose of lidocaine was injected into the above noted epidural space, and the patient was observed for 30-60 seconds. No sensory deficits were reported and normal lower extremity motor function was noted. Subsequently, the injectate as noted above was administered into the level noted above. The patient tolerated the procedure well and was discharged after an appropriate period of observation. If there are any complications, the patient was instructed to call us. The patient is to follow-up with the requesting provider in 2-3 weeks. This note was compiled using voice recognition software and therefore may contain typos. Please contact the author with any questions or concerns.
== END 2025-06-17 09:43 | disposition home or self-care (01) ==
LOC: RAD 07:47
PROVIDERS: PCP Internal Medicine; Referring Provider Internal Medicine; Visit Provider Physical Medicine & Rehabilitation
DX: M54.17 Radiculopathy, lumbosacral region (principal)
CPT/HCPCS: 62323; J1010